=== PATIENT | male | born 1990 | race African-American/Black ===

== ENCOUNTER 2020-01-30 23:19 | Inpatient (IN) | payer OTHER ==
--- NOTE | 2020-01-30 23:35 | PDOC ---
History of Present Illness - General Chief Complaint: Pain Stated Complaint: ABD PAIN/NAUSEA - History of Present Illness Initial Comments: 01/31/20 00:05 29 year old man with a history of alcoholic liver disease, pancreatitis, withdrawal seizures and alcohol and marijuana abuse who presetns from [facility] with abdominal pain, nausea and alcohol withdrawal. The patient drinks 4 pints of leigh a day and last drank yesterday morning. He reports that he wants to get detox. He got diagnosed with pancreatitis 2 months ago and notes that the abdominal pain has been constant since then but worse today. He states the pain travels to the R lower side. He denies any surgeries on his abdomen. He admits to some nausea but no vomiting. ROS GENERAL/CONSTITUTIONAL: + fever or chills. No weakness. HEAD, EYES, EARS, NOSE AND THROAT: No change in vision. No ear pain or discharge. No sore throat. CARDIOVASCULAR: No chest pain or shortness of breath RESPIRATORY: No cough, wheezing, or hemoptysis. GASTROINTESTINAL: + nausea, No vomiting, diarrhea or constipation. GENITOURINARY: No dysuria, frequency, or change in urination. MUSCULOSKELETAL: No joint or muscle swelling or pain. No neck or back pain. SKIN: No rash NEUROLOGIC: No headache, vertigo, loss of consciousness, or change in strength/sensation. ENDOCRINE: No increased thirst. No abnormal weight change HEMATOLOGIC/LYMPHATIC: No anemia, easy bleeding, or history of blood clots. ALLERGIC/IMMUNOLOGIC: No hives or skin allergy. PE GENERAL: Awake, alert, and fully oriented, in no acute distress HEAD: No signs of trauma, normocephalic, atraumatic EYES: EOMI, sclera anicteric, conjunctiva clear ENT: oropharynx clear without exudates. Moist mucosa NECK: Normal ROM, supple LUNGS: No distress, speaks full sentences, clear to auscultation bilaterally HEART: Regular rate and rhythm, normal S1 and S2, no murmurs, rubs or gallops, peripheral pulses normal and equal bilaterally. ABDOMEN: Soft, + RLQ ttp, LUQ ttp, epigastric ttp, No guarding, no rebound. No masses EXTREMITIES : Normal inspection, Normal range of motion, no edema. No clubbing or cyanosis. NEUROLOGICAL: Cranial nerves II through XII grossly intact. Normal speech, no focal sensorimotor deficits, mild hand tremor, mild tongue tremor SKIN: Warm, Dry, normal turgor, no rashes or lesions noted Assessment and Plan 29 year old man with a history of alcoholic liver disease, pancreatitis and alcohol and marijuana abuse who presetns from [facility] with abdominal pain, nausea and alcohol withdrawal. Consider pancreatitis vs alcohol withdrawal vs appendicitis CIWA 3 librium banana bag tylenol low dose for fever - cbc, cmp, lipase, ekg, cxr, CT likely admit for detox and pancreatitis lipase elevated CT: acute pancreatitis EKG: nsr at 60bpm plan for admission Sherly Chan PGY2 Emergency Medicine 01/31/20 02:57 Past History - Medical History Allergies/Adverse Reactions: Allergies Allergy/AdvReac Type Severity Reaction Status Date / Time house dust mite Allergy Mild Itching Verified 01/30/20 23:23 tree and shrub pollen Allergy Mild Itching Verified 01/30/20 23:23 bee pollen Allergy Verified 01/30/20 23:23 pollen extracts Allergy Verified 01/30/20 23:23 Home Medications: Ambulatory Orders Unobtainable 01/30/20 Anemia: No Asthma: No Cancer: No Cardiac Disorders: No CVA: No COPD: No CHF: No Dementia: No Diabetes: No GI Disorders: Yes (Pancreatitis) Disorders: No HTN: Yes (Not on medication) Hypercholesterolemia: No Kidney Stones: No Liver Disease: No Seizures: Yes Thyroid Disease: No - Surgical History Abdominal Surgery: No Appendectomy: No Cardiac Surgery: No Cholecystectomy: No Lung Surgery: No Neurologic Surgery: No Orthopedic Surgery: No - Reproductive History Testicular Surgery: No - Psycho-Social/Smoking History Smoking History: Current every day smoker Have you smoked in the past 12 months: No Information on smoking cessation initiated: No - Substance Abuse Hx (Audit-C & DAST Scrn) How often the patient has a drink containing alcohol: 4 0r more times/wk Number of drinks the patient has on a typical day: 5 or 6 How often the patient has six or more drinks on one occasion: Daily or almost daily Score: In Men: 4 or > Positive; In Women: 3 or > Positive: 10 Screen Result (Pos requires Nsg. Audit-10AR): Positive In the last yr the pt used illegal drug/Rx for NonMed reason: Yes Score: Yes response is considered Positive: 1 Screen Result (Positive result requires Nsg. DAST-10): Positive *Physical Exam - Vital Signs Last Vital Signs Temp Pulse Resp BP Pulse Ox 100.1 F H 88 18 134/76 100 01/30/20 23:20 01/30/20 23:20 01/30/20 23:20 01/30/20 23:20 01/30/20 23:20 ED Treatment Course - LABORATORY CBC & Chemistry Diagram: 02/06/20 09:50 02/06/20 09:50 Discharge - Discharge Information Problems reviewed: Yes Clinical Impression/Diagnosis: Pancreatitis Qualifiers: Pancreatitis type: alcohol induced - Follow up/Referral - Patient Discharge Instructions - Post Discharge Activity
[2020-01-30] MEDS ORDERED: chlordiazePOXIDE HCL 25 MG CAPSULE PO ONE (23:40)
[2020-01-30] MEDS ORDERED: FOLIC ACID INJECTION - 1 MG, THIAMINE HCL 100 MG, MULTIVIT INJECTION ADULT 10 ML in SOD... IVPB ONE (23:43)
[2020-01-30] MEDS ORDERED: chlordiazePOXIDE HCL 25 MG CAPSULE ONE (23:51)
[2020-01-31] MEDS ORDERED: ACETAMINOPHEN 325 MG TABLET (FP) ONE
[2020-01-31] MEDS ORDERED: ACETAMINOPHEN 325 MG TABLET (FP) PO ONE (00:10)
[2020-01-31 00:12] LABS: BASO % 0.6 % (0-2.0); EOS % 0.7 % (0-4.5); HEMATOCRIT 30.7 % (35.4-49); HEMOGLOBIN 10.5 GM/dL (11.7-16.9); LYMPH % 39.6 % (8-40); MCH 30.9 pg (25.7-33.7); MCHC 34.3 g/dl (32.0-35.9); MEAN CELL VOLUME 90.3 fl (80-96); MEAN PLT VOLUME 7.8 fl (7.5-11.1); MONO % 8.1 % (3.8-10.2); PLATELET COUNT 248 K/MM3 (134-434); RDW 14.9 % (11.9-15.9); WHITE BLOOD COUNT 4.5 K/mm3 (4.0-10.0)
[2020-01-31] MEDS: ACETAMINOPHEN 1000 MG/100 ML VIAL (NON FORMULARY) IVPB ONE ×2 (00:18→03:43)
[2020-01-31 00:39] LABS: ALBUMIN 3.9 g/dl (3.4-5.0); ALK PHOS 120 U/L (45-117); ANION GAP 12 MMOL/L (8-16); BILIRUBIN,TOTAL 0.6 mg/dL (0.2-1); CALCIUM 9.2 mg/dL (8.5-10.1); CHLORIDE 94 mmol/L (98-107); CO2 29 mmol/L (21-32); GLUCOSE,RANDOM 99 mg/dL (74-106); LIPASE 1143 U/L (73-393); POTASSIUM 3.4 mmol/L (3.5-5.1); SGOT/AST 286 U/L (15-37); SGPT/ALT 80 U/L (13-61); SODIUM 135 mmol/L (136-145); TOT PROT 8.1 g/dl (6.4-8.2)
[2020-01-31 00:45] LABS: INR 1.07 (0.83-1.09); PROTHROMBIN TIME (PATIENT) 12.6 SEC (9.7-13.0)
[2020-01-31 00:48] LABS: ACTIVATED PTT 29.8 SECONDS (25.2-36.5)
--- NOTE | 2020-01-31 02:33 | PDOC ---
Attending Attestation - Resident Resident Name: Sherly Chan - ED Attending Attestation I have performed the following: I have examined & evaluated the patient, The case was reviewed & discussed with the resident, I agree w/resident's findings & plan, Exceptions are as noted - HPI HPI: 01/31/20 02:27 29 yo male h/o etoh abuse, prior pancreatitis here wtih c/o epigastric pain. nausea, no vomiting no diarrhea. went to [facility] for detox, sent to ED for evaluation of his abd pain. pain is severe, achy constant, no radiating. no mod factors. last drink was day prior . has been drinking heavily for 15 yrs, does have h/o withdrawal seizures from etoh in the past. - Physicial Exam PE: 01/31/20 02:30 awake alert lungs clear bilat heart rrr no mrg abd with epigastric ttp. no rebound no guarding. ext wwp. nuero alert oriented x 3. - Medical Decision Making 01/31/20 02:33 29 yo male with epigastric pain h/o pancreatitis etoh abuse here from detox at [facility]. differential cholecystitis, pancreatitis etoh gastritis, electrolyte abnoramlity. pt high risk for etoh withdrawwal.ttp on abd exam. plan ct a/p labs cbc cmp lipase ua. will given meds for etoh withdrawal. ct with signs of pancreatitis, near tail of pancreas. lipse 1100. will admit. given librium in ED. Heart Score/ECG Review #1 General ECG Interpretation: Sinus Rhythm, Normal Rate (60), Normal Intervals, No acute ischemic changes Discharge - Discharge Information Problems reviewed: Yes Clinical Impression/Diagnosis: Pancreatitis Qualifiers: Pancreatitis type: alcohol induced - Follow up/Referral - Patient Discharge Instructions - Post Discharge Activity
--- NOTE | 2020-01-31 03:01 | PN ---
Teaching Attending Note Name of Resident: Barbara Choudhary ATTENDING PHYSICIAN STATEMENT I saw and evaluated the patient. I reviewed the resident's note and discussed the case with the resident. I agree with the resident's findings and plan as documented. SUBJECTIVE: Patient is a 29 year old man with a PMH of Alcoholic liver disease, Pancreat itis, Tobacco use, Withdrawal seizures and Alcohol and Marijuana abuse who presents from [facility] with abdominal pain, nausea and alcohol withdrawal. The patient drinks 4 pints of leigh a day and last drank was yesterday morning. He reports that he wants to get detox. He got diagnosed with pancreatitis 2 months ago and notes that the abdominal pain has been constant since then but worse today. He states the pain travels to the right lower side. He denies any abdominal surgeries on his abdomen. Reports nausea but no vomiting. Denies dysuria, frequency, urgency, hematochezia or diarrhea. No sick contacts or recent travels. Family history is unremarkable. OBJECTIVE: Alert Vital Signs Period Temp Pulse Resp BP Sys/Moore Pulse Ox Last 24 Hr 100.1 F 88 18 134/76 100-100 HEENT: No Jaundice, eye redness or discharge, PERRLA, EOMI. Normocephalic, atraumatic. External ears are normal and hearing is grossly intact. No nasal discharge. Neck: Supple, nontender. No palpable adenopathy or thyromegaly. No JVD Chest: Good effort. Clear to auscultation and percussion. Heart: Regular. No S3, rub or murmur Abdomen: Not distended, soft, upper abdominal tenderness and guarding; no HSM. No rebound. Normal bowel sounds. Ext: Peripheral pulses intact. No leg edema. Skin: Warm and dry. No petechiae, rash or ecchymosis. Neuro: Alert. Oriented x3. No tremors or asterexis. CN 2-12 grossly intact. Sensation grossly intact in all four extremities and DTR are symmetric. Psych: Appropriate mood and affect. Good insight. Current Medications Generic Name Dose Route Start Last Admin Trade Name Freq PRN Reason Stop Dose Admin Folic Acid 1 mg/ Thiamine HCl 1,000 mls @ 125 mls/hr 01/30/20 23:43 01/31/20 00:18 100 mg/ Multivitamins/Minerals IVPB 01/31/20 07:42 125 mls/hr 10 ml/ Sodium Chloride ONCE ONE Administration Home Medications Medication Instructions Recorded Unobtainable 01/30/20 Abnormal Lab Results 01/30/20 01/30/20 23:50 23:50 RBC 3.40 L Hgb 10.5 L Hct 30.7 L Sodium 135 L Potassium 3.4 L Chloride 94 L AST 286 H ALT 80 H Alkaline Phosphatase 120 H Lipase 1143 H Current Medications Generic Name Dose Route Start Last Admin Trade Name Sulaiman PRN Reason Stop Dose Admin Enoxaparin Sodium 40 mg 01/31/20 10:00 Lovenox - SQ DAILY JUNITO Folic Acid 0.4 mg 01/31/20 10:00 Folic Acid Injection - SQ DAILY JUNITO Folic Acid 1 mg/ Thiamine HCl 1,000 mls @ 125 mls/hr 01/30/20 23:43 01/31/20 00:18 100 mg/ Multivitamins/Minerals IVPB 01/31/20 07:42 125 mls/hr 10 ml/ Sodium Chloride ONCE ONE Administration Lactated Ringer's 1,000 ml in 1,000 mls @ 200 mls/hr 01/31/20 04:15 Lactated Ringers Solution IV ASDIR JUNITO Morphine Sulfate 2 mg 01/31/20 04:00 Morphine Sulfate IVPUSH Q4H PRN PAIN LEVEL 6-10 Multivitamins/Minerals 10 ml 01/31/20 10:00 Infuvite Adult - IV DAILY JUNITO Thiamine HCl 200 mg 01/31/20 10:00 Vitamin B1 Injection - IVPB DAILY [facility] ASSESSMENT AND PLAN: 1. Acute pancreatitis - CT abdomen/pelvis shows evidence of pancreatitis in the tail. No acute abnormality on CXR. Got 1 liter of banana bag in the ER. Will keep him NPO and treat with IV ringers lactate at 200 ml/hour and use morphine for pain control. Viral testing for COVID-19 ordered and patient placed on airborne, droplet and contact isolation. Urinalysis pending. EKG shows NSR at 60/minute and QTc [address]-T wave changes. Hypokalemia likely partly due to alcohol induced urinary wasting. Will check serum magnesium, phosphate, triglycerides, hepatitis serology, trend LFTs, give IV and PO KCL. Patient is underweight - will consult physician assistant and provide nutritional supplements. Will continue comprehensive care for all of patients comorbid conditions. 2. Alcohol abuse - Implement [facility] alcohol withdrawal protocol and do neurochecks. Implement seizure, fall and aspiration precautions. Treat with thiamine and folic acid. Monitor and replete electrolytes (Ca,Mg,K,P). Counseled patient about abstaining from alcohol. Will consult client technologies specialist and refer to alcohol detox upon discharge. 3. Tobacco Use Counseled on risks associated with tobacco use. We will provide patient all the necessary assistance to facilitate smoking cessation and prescribe Nicotine patch. 4. Anemia - Likely multifactorial. Will do basic anemia work up including serial stool guaiacs, vitamin B12/folate levels, reticulocyte count and iron studies. 5. DVT prophylaxis - Lovenox 40 mg SQ q 24 hours. 6. Advance directives - Full code
[2020-01-31] MEDS ORDERED: FAMOTIDINE 20 MG TABLET ONE (03:28)
--- NOTE | 2020-01-31 04:00 | HP ---
CHIEF COMPLAINT: abdominal pain PCP: none HISTORY OF PRESENT ILLNESS: Pt is a 29 y/o male with HTN, depression, ETOH use disorder with hx of seizure (1 month ago), and pancreatitis (2 months ago) who was sent from [facility] (prior to admission) for evaluation of abdominal pain. Pt reports intermittent, sharp abdominal pain that begins in the LUQ and radiates into the LLQ then RLQ. Food makes symptoms worse. He also has associated nausea, loss of appetite, and chills. He has not taken any medication for the pain. Pt drinks 2 pints of liquor a day. His last drink was a day and a half ago. He began drinking at 17. He had a seizure about 1 month ago when trying to detox on his own at home. One month prior, he went to detox but started drinking again right after he left. Pt also endorses regular marijuana use. He denies tobacco or other drug use. CIWA 0 ER course was notable for: (1) IV fluids, vitamins, librium, Tylenol (2) CT- mild mesenteric infiltration adjacent to the tail of the pancreas suggestive of mild acute pancreatitis (3) lipase 1143, Hb 10.5, K 3.4, ALT 286/AST 80/Alk Phos 120 (4) EKG- HR 60, NSR, normal axis, normal intervals, no ST changes, QTc 416 PAST MEDICAL HISTORY: HTN, depression, ETOH use disorder with hx of seizure (2 months ago), and pancr eatitis PAST SURGICAL HISTORY: none Social History: Smoking: denies Alcohol: 2 pints/daily Drugs: marijuana lives at home with mother Allergies house dust mite Allergy (Mild, Verified 01/30/20 23:23) Itching tree and shrub pollen Allergy (Mild, Verified 01/30/20 23:23) Itching SOB bee pollen Allergy (Verified 01/30/20 23:23) pollen extracts Allergy (Verified 01/30/20 23:23) HOME MEDICATIONS: Home Medications Medication Instructions Recorded none 01/30/20 REVIEW OF SYSTEMS see HPI PHYSICAL EXAMINATION Vital Signs - 24 hr 01/30/20 01/31/20 01/31/20 23:20 00:20 03:21 Temperature 100.1 F H 98.7 F Pulse Rate 88 Pulse Rate [ 60 Left] Respiratory 18 18 Rate Blood Pressure 134/76 Blood Pressure 126/85 [Left Arm] O2 Sat by Pulse 100 100 100 Oximetry (%) GENERAL: Awake, alert, and fully oriented, in no acute distress. Thin. HEAD: Normal with no signs of trauma. EYES: Pupils equal, round and reactive to light, extraocular movements intact, sclera mildly icteric, conjunctiva clear. EARS, NOSE, THROAT: Ears normal, nares patent, moist mucous membranes. NECK: Normal range of motion. LUNGS: Clear to auscultation bilaterally. No wheezes, and no crackles. HEART: Regular rate and rhythm, normal S1 and S2 without murmur. ABDOMEN: Soft, diffusely tender to light palpation, not distended, normoactive bowel sounds, + guarding, no rebound, no masses. No hepatomegaly or splenomegaly appreciated. No ecchymosis. MUSCULOSKELETAL: Normal range of motion at all joints. No CVA tenderness. UPPER EXTREMITIES: Warm, well-perfused. No peripheral edema. LOWER EXTREMITIES: Warm, well-perfused. No peripheral edema. NEUROLOGICAL: Cranial nerves II-XII grossly intact. Normal speech. PSYCHIATRIC: Cooperative. Good eye contact. Appropriate mood and affect. SKIN: Warm, dry, normal turgor. Laboratory Results - last 24 hr 01/30/20 01/30/20 01/31/20 23:50 23:50 00:00 WBC 4.5 RBC 3.40 L Hgb 10.5 L Hct 30.7 L MCV 90.3 MCH 30.9 MCHC 34.3 RDW 14.9 Plt Count 248 MPV 7.8 Absolute Neuts (auto) 2.3 Neutrophils % 51.0 Lymphocytes % 39.6 Monocytes % 8.1 Eosinophils % 0.7 Basophils % 0.6 Nucleated RBC % 0 PT with INR 12.60 INR 1.07 PTT (Actin FS) 29.8 Sodium 135 L Potassium 3.4 L Chloride 94 L Carbon Dioxide 29 Anion Gap 12 BUN 11.0 Creatinine 1.0 Est GFR (CKD-EPI)AfAm 119.02 Est GFR (CKD-EPI)NonAf 102.69 Random Glucose 99 Calcium 9.2 Total Bilirubin 0.6 AST 286 H ALT 80 H Alkaline Phosphatase 120 H Total Protein 8.1 Albumin 3.9 Lipase 1143 H Alcohol, Quantitative < 3 ASSESSMENT/PLAN: Pt is a 29 y/o male with HTN, depression, ETOH use disorder with hx of seizure (1 month ago), and pancreatitis (2 months ago) who was sent from [facility] (prior to admission) for evaluation of abdominal pain. CT abdomen shows mesenteric infiltration at pancreatic tail suggestive of acute pancreatitis. #mild acute alcoholic pancreatitis #transaminitis #failure to thrive -abdominal pain, CT findings, borderline elevated lipase -LR 200mL/hr -IV thiamine -IV folate -IV MV -morphine 2mg Q4H for pain -NPO except for meds -hepatitis panel -trend liver enzymes -Mg level -triglyceride level -consider dietary consult given low BMI #alcohol use disorder #hypokalemia -CIWA currently 0, but last drink was a day and a half ago -?hypokalemia from malnutrition -at risk for arrhythmias -start Ativan 2mg Q6H scheduled to prevent withdrawal symptoms, adjust if needed -IV and PO potassium -seizure precautions -fall precautions -discussed returning to [facility] for rehab and pt is amenable #normocytic anemia -Hb 10.5 -could be 2/2 alcohol use bone marrow suppression vs GI bleed -iron studies -B12 -folate -serial FOBT DVT Ppx Lovenox FEN LR 200mL/hr monitor K, Mg NPO dispo tele monitor for seizures and arrhythmias FULL CODE Visit type - Emergency Visit Emergency Visit: Yes ED Registration Date: 01/31/20 Care time: The patient presented to the Emergency Department on the above date and was hospitalized for further evaluation of their emergent condition. - New Patient This patient is new to me today: Yes Date on this admission: 01/31/20 - Critical Care Critical Care patient: No ATTENDING PHYSICIAN STATEMENT I saw and evaluated the patient. I reviewed the resident's note and discussed the case with the resident. I agree with the resident's findings and plan as documented. SUBJECTIVE: OBJECTIVE: ASSESSMENT AND PLAN:
[2020-01-31] MEDS ORDERED: LACTATED RINGERS SOLUTION 1,000 ML/1,000 ML INFUS.BAG IV SCH (04:15)
[2020-01-31] MEDS ORDERED: POTASSIUM CHLORIDE TABS 20 MEQ TABLET.ER (FP) PO ONE (04:24)
[2020-01-31] MEDS: MORPHINE SULFATE 2 MG/ML VIAL IVPUSH PRN ×2 (04:26→09:43)
[2020-01-31] MEDS: LORazepam 2 MG/ML SDV VIAL IVPUSH SCH ×3 (05:11→18:24)
[2020-01-31] MEDS: KCL 10 MEQ IVPB 10 MEQ/100 ML INFUS.BAG IVPB SCH ×3 (05:11→09:32)
[2020-01-31 06:59] LABS: MAGNESIUM 1.1 mg/dL (1.8-2.4); TRIGLYCERIDES 588 mg/dL (0-150)
[2020-01-31 09:01] LABS: BASO % 0.4 % (0-2.0); EOS % 1.8 % (0-4.5); HEMATOCRIT 28.9 % (35.4-49); HEMOGLOBIN 10.1 GM/dL (11.7-16.9); LYMPH % 48.8 % (8-40); MCH 31.4 pg (25.7-33.7); MCHC 34.9 g/dl (32.0-35.9); MEAN CELL VOLUME 89.9 fl (80-96); MEAN PLT VOLUME 7.6 fl (7.5-11.1); MONO % 7.3 % (3.8-10.2); NEUT % 41.7 % (42.8-82.8); PLATELET COUNT 194 K/MM3 (134-434); RBC 3.22 M/mm3 (4.00-5.60); RDW 14.8 % (11.9-15.9); WHITE BLOOD COUNT 4.4 K/mm3 (4.0-10.0)
[2020-01-31 09:39] LABS: MAGNESIUM 1.2 mg/dL (1.8-2.4)
[2020-01-31] MEDS ORDERED: PT OWN MED DRAWER 7, Y5N ONE ×2 (09:39→18:08)
[2020-01-31] MEDS: ENOXAPARIN NA (PORCINE) 40 MG/0.4 ML DISP.SYRIN SQ SCH (09:45)
[2020-01-31] MEDS: THIAMINE HCL 200 MG/2 ML VIAL IVPB SCH (09:46)
[2020-01-31] MEDS: MULTIVIT INJ. ADULT COMBO WITH VIT K 1 COMBO 10 ML VIAL IV SCH (10:00)
[2020-01-31] MEDS ORDERED: FOLIC ACID 5 MG/1 ML SQ SCH (10:00)
[2020-01-31 10:03] LABS: MAGNESIUM 1.2 mg/dL (1.8-2.4)
[2020-01-31] MEDS: FOLIC ACID 5 MG/1 ML IVPB SCH (11:47)
[2020-01-31] MEDS ORDERED: MAGNESIUM SULF 50% (8.12 MEQ/2 ML-1 GM VIAL) IVPB ONE (16:22)
[2020-01-31] MEDS ORDERED: SODIUM CHLORIDE 1,000 ML IV SCH (16:30)
--- NOTE | 2020-01-31 17:50 | EKG ---
Test Reason : Blood Pressure : / mmHG Vent. Rate : 060 BPM Atrial Rate : 060 BPM P-R Int : 138 ms QRS Dur : 102 ms QT Int : 416 ms P-R-T Axes : 037 073 059 degrees QTc Int : 416 ms NORMAL SINUS RHYTHM WITH SINUS ARRHYTHMIA NORMAL ECG NO PREVIOUS ECGS AVAILABLE Confirmed by MD Vaughn, Shen ([id number]) on 01/31/2020 5:49:37 PM Referred By: Confirmed By:Shen Mendes MD
[2020-01-31] MEDS: NAPH,MB-DB/K PH,MBDB POWDER PACKET PO SCH (21:46)
[2020-02-01] MEDS: LORazepam 2 MG/ML SDV VIAL IVPUSH SCH ×3 (00:08→11:23)
[2020-02-01] MEDS: NAPH,MB-DB/K PH,MBDB POWDER PACKET PO SCH ×3 (06:18→21:54)
--- NOTE | 2020-02-01 07:49 | PN ---
Progress Note, Physician History of Present Illness: Pt is a 29 y/o male with HTN, depression, ETOH use disorder with hx of seizure (1 month ago), and pancreatitis (2 months ago) who was sent from [facility] (prior to admission) for evaluation of abdominal pain. CT abdomen shows mesenteric infiltration at pancreatic tail suggestive of acute pancreatitis. - Current Medication List Current Medications: Active Medications Enoxaparin Sodium (Lovenox -) 40 mg SQ DAILY [facility] Last Admin: 01/31/20 09:45 Dose: 40 mg Documented by: Folic Acid (Folic Acid Injection -) 1 mg IVPB DAILY [facility] Last Admin: 01/31/20 11:47 Dose: 1 mg Documented by: Sodium Chloride (Normal Saline -) 1,000 mls @ 100 mls/hr IV ASDIR [facility] Last Admin: 01/31/20 18:24 Dose: 100 mls/hr Documented by: Lorazepam (Ativan Injection -) 2 mg IVPUSH Q6H [facility] Last Admin: 02/01/20 06:18 Dose: 2 mg Documented by: Morphine Sulfate (Morphine Sulfate) 2 mg IVPUSH Q4H PRN PRN Reason: PAIN LEVEL 6-10 Last Admin: 01/31/20 09:43 Dose: 2 mg Documented by: Multivitamins/Minerals (Infuvite Adult -) 10 ml IV DAILY [facility] Last Admin: 01/31/20 10:00 Dose: Not Given Documented by: Potassium Phos/Sodium Phos (Phos-Nak Packet -) 1 packet PO TID [facility] Stop: 02/02/20 14:01 Last Admin: 02/01/20 06:18 Dose: 1 packet Documented by: Thiamine HCl (Vitamin B1 Injection -) 200 mg IVPB DAILY [facility] Last Admin: 01/31/20 09:46 Dose: 200 mg Documented by: - Objective Vital Signs: Vital Signs Temperature 98.8 F 02/01/20 06:00 Pulse Rate 68 02/01/20 06:00 Respiratory Rate 18 02/01/20 06:00 Blood Pressure 125/88 02/01/20 06:00 O2 Sat by Pulse Oximetry (%) 100 01/31/20 21:00 Constitutional: Yes: No Distress, Calm, Cachectic Eyes: Yes: WNL, Conjunctiva Clear HENT: Yes: WNL, Atraumatic, Normocephalic Neck: Yes: WNL, Supple, Trachea Midline Cardiovascular: Yes: WNL, Regular Rate and Rhythm Respiratory: Yes: WNL, Regular, CTA Bilaterally Gastrointestinal: Yes: Normal Bowel Sounds, Soft, Tenderness (diffuse tenderness) ...Rectal Exam: Yes: Deferred Genitourinary: Yes: WNL Breast(s): Yes: WNL Musculoskeletal: Yes: WNL Extremities: Yes: WNL Edema: No Peripheral Pulses WNL: Yes Peripheral Pulses: Left Radial: 2+, Right Radial: 2+, Left Doralis Pedis: 2+, Right Dorsalis Pedis: 2+, Left Femoral: 2+, Right Femoral: 2+ Integumentary: Yes: Body Piercing (multiple facial piercings), Tattoos (multiple to UE) Neurological: Yes: WNL, Alert, Oriented ...Motor Strength: WNL Psychiatric: Yes: WNL, Alert, Oriented Labs: CBC, BMP 01/31/20 08:39 01/30/20 23:50 INR, PTT INR 1.07 (0.83-1.09) 01/31/20 00:00 - ....Imaging Chest X-ray: Report Reviewed (no acute pathology) Cat Scan: Report Reviewed Ultrasound: Report Reviewed (no acute pathology) Problem List - Problems (1) Depression Assessment/Plan: hx of on no medications Code(s): F32.9 - MAJOR DEPRESSIVE DISORDER, SINGLE EPISODE, UNSPECIFIED (2) Prophylactic measure Assessment/Plan: FEN Fluids: IVF, NPO Electrolytes: monitor & replete as needed Nutrition: NPO DVT ambulatory Dispo Maintain as inpatient full code discharge planning back to [facility] Code(s): Z29.9 - ENCOUNTER FOR PROPHYLACTIC MEASURES, UNSPECIFIED (3) Transaminitis Assessment/Plan: LFTs elevated most likely secondary to ETOH use hepatatis panel pending avoid hepatotoxic agents GI following Code(s): R74.0 - NONSPEC ELEV OF LEVELS OF TRANSAMNS & LACTIC ACID DEHYDRGNSE (4) Alcohol dependence with withdrawal, unspecified Assessment/Plan: presented from [facility] [address] Dr Malik to follow ativan protocol initiated request to return back to [facility] when medically stable counseled on cessation Code(s): F10.239 - ALCOHOL DEPENDENCE WITH WITHDRAWAL, UNSPECIFIED Qualifiers: Complication of substance-induced condition: with unspecified complication Qualified Code(s): F10.239 - Alcohol dependence with withdrawal, unspecified (5) Alcohol related seizure Assessment/Plan: sz last year, on no meds no seizure activity noted fall precautions Code(s): R56.9 - UNSPECIFIED CONVULSIONS (6) Pancreatitis Assessment/Plan: hydrated over night c/w IVF lipase 1143 GI following can start clears and advance as tolerated Protonix IV BID Code(s): K85.90 - ACUTE PANCREATITIS WITHOUT NECROSIS OR INFECTION, UNSP Qualifiers: Pancreatitis type: alcohol induced (7) Severe malnutrition Assessment/Plan: as evidence by BMI 16.5 muscle amd temporal waisting long standing etoh use starting clear liquids today will start clinimax until eating PO diet, decrease IVf to 150cc when started request for RD to see Code(s): E43 - UNSPECIFIED SEVERE PROTEIN-CALORIE MALNUTRITION (8) Smoking Assessment/Plan: active smoker offered nicotine patch-declined counseled on cessation Code(s): F17.200 - NICOTINE DEPENDENCE, UNSPECIFIED, UNCOMPLICATED Visit type - Emergency Visit Emergency Visit: Yes ED Registration Date: 01/31/20 Care time: The patient presented to the Emergency Department on the above date and was hospitalized for further evaluation of their emergent condition. - New Patient This patient is new to me today: Yes Date on this admission: 02/01/20 - Critical Care Critical Care patient: No - Discharge Referral Referred to [facility] No CIWA Score - CIWA Score Nausea/Vomitin-Mild Nausea/No Vomiting Muscle Tremors: 1-None Visible, but Eure Anxiety: 1-Mildly Anxious Agitation: 0-Normal Activity Paroxysmal Sweats: No Perspiration Orientation: 0-Oriented Tacttile Disturbances: 1-Very Mild Itch/Numbness Auditory Disturbances: 0-None Visual Disturbances: 0-None Headache: 1-Very Mild CIWA-Ar Total Score: 5
[2020-02-01] MEDS ORDERED: SODIUM CHLORIDE 1,000 ML IV SCH (07:55)
--- NOTE | 2020-02-01 08:57 | CON.GI ---
Consult Consult Specialty:: coverage for Dr Wayne - History of Present Illness History of Present Illness: Patient is a 29 year old man with a PMH of Alcoholic liver disease, Pancreatitis, Tobacco use, Withdrawal seizures and Alcohol and Marijuana abuse who presents from [facility] with abdominal pain, nausea and alcohol withdrawal. He was noted to have an elevated lipase, normal pancreas by CT , GB sludge by Ultrasound - Alcohol/Substance Use Hx Alcohol Use: Yes - Smoking History Smoking history: Current every day smoker Have you smoked in the past 12 months: No Home Medications - Allergies Allergies/Adverse Reactions: Allergies Allergy/AdvReac Type Severity Reaction Status Date / Time house dust mite Allergy Mild Itching Verified 01/30/20 23:23 tree and shrub pollen Allergy Mild Itching Verified 01/30/20 23:23 bee pollen Allergy Verified 01/30/20 23:23 pollen extracts Allergy Verified 01/30/20 23:23 - Home Medications Home Medications: Ambulatory Orders Unobtainable 01/30/20 Physical Exam-GI Vital Signs: Vital Signs Temperature 98.8 F 02/01/20 06:00 Pulse Rate 68 02/01/20 06:00 Respiratory Rate 18 02/01/20 06:00 Blood Pressure 125/88 02/01/20 06:00 O2 Sat by Pulse Oximetry (%) 100 01/31/20 21:00 Labs: INR, PTT INR 1.07 (0.83-1.09) 01/31/20 00:00 CBCD WBC 4.4 K/mm3 (4.0-10.0) 01/31/20 08:39 RBC 3.22 M/mm3 (4.00-5.60) L 01/31/20 08:39 Hgb 10.1 GM/dL (11.7-16.9) L 01/31/20 08:39 Hct 28.9 % (35.4-49) L 01/31/20 08:39 MCV 89.9 fl (80-96) 01/31/20 08:39 MCHC 34.9 g/dl (32.0-35.9) 01/31/20 08:39 RDW 14.8 % (11.9-15.9) 01/31/20 08:39 Plt Count 194 K/MM3 (134-434) D 01/31/20 08:39 MPV 7.6 fl (7.5-11.1) 01/31/20 08:39 CMP Sodium 135 mmol/L (136-145) L 01/30/20 23:50 Potassium 3.4 mmol/L (3.5-5.1) L 01/30/20 23:50 Chloride 94 mmol/L (98-107) L 01/30/20 23:50 Carbon Dioxide 29 mmol/L (21-32) 01/30/20 23:50 Anion Gap 12 MMOL/L (8-16) 01/30/20 23:50 BUN 11.0 mg/dL (7-18) 01/30/20 23:50 Creatinine 1.0 mg/dL (0.55-1.3) 01/30/20 23:50 Calcium 9.2 mg/dL (8.5-10.1) 01/30/20 23:50 Total Bilirubin 0.6 mg/dL (0.2-1) 01/30/20 23:50 AST 286 U/L (15-37) H 01/30/20 23:50 ALT 80 U/L (13-61) H 01/30/20 23:50 Alkaline Phosphatase 120 U/L (45-117) H 01/30/20 23:50 Total Protein 8.1 g/dl (6.4-8.2) 01/30/20 23:50 Albumin 3.9 g/dl (3.4-5.0) 01/30/20 23:50 Problem List - Problems (1) Alcoholic pancreatitis Assessment/Plan: R> IV hydration IV pantoprazole q 12hours may have clear liquids Detox protocol Code(s): K85.20 - ALCOHOL INDUCED ACUTE PANCREATITIS WITHOUT NECROSIS OR INFCT
[2020-02-01 08:59] LABS: BASO % 0.5 % (0-2.0); EOS % 4.7 % (0-4.5); HEMATOCRIT 28.8 % (35.4-49); HEMOGLOBIN 9.8 GM/dL (11.7-16.9); MCH 30.9 pg (25.7-33.7); MCHC 33.9 g/dl (32.0-35.9); MEAN PLT VOLUME 7.8 fl (7.5-11.1); MONO % 9.1 % (3.8-10.2); NEUT % 52.7 % (42.8-82.8); PLATELET COUNT 150 K/MM3 (134-434); RBC 3.16 M/mm3 (4.00-5.60); RDW 15.1 % (11.9-15.9); WHITE BLOOD COUNT 3.8 K/mm3 (4.0-10.0)
[2020-02-01 09:14] LABS: BLOOD UREA NITROGEN 4.3 mg/dL (7-18); CALCIUM 8.8 mg/dL (8.5-10.1); CREATININE 0.8 mg/dL (0.55-1.3)
[2020-02-01] MEDS ORDERED: PT OWN MED DRAWER 7, Y5N ONE ×2 (09:16→11:05)
[2020-02-01 09:20] LABS: MAGNESIUM 1.8 mg/dL (1.8-2.4); PHOSPHOROUS 2.6 mg/dL (2.5-4.9)
[2020-02-01] MEDS: PANTOPRAZOLE SODIUM 40 MG VIAL IVPUSH SCH ×2 (09:30→21:57)
[2020-02-01] MEDS: ENOXAPARIN NA (PORCINE) 40 MG/0.4 ML DISP.SYRIN SQ SCH (09:30)
[2020-02-01] MEDS: THIAMINE HCL 200 MG/2 ML VIAL IVPB SCH (09:30)
[2020-02-01] MEDS ORDERED: PANTOPRAZOLE SODIUM 40 MG in SODIUM CHLORIDE 100 ML IVPB SCH (10:00)
[2020-02-01] MEDS: FOLIC ACID 5 MG/1 ML IVPB SCH (11:26)
[2020-02-01] MEDS ORDERED: LORazepam 1 MG TABLET PO PRN (13:49)
[2020-02-01 14:19] VITALS: BMI 16.5
[2020-02-01] MEDS: LORazepam 1 MG TABLET PO SCH ×3 (14:33→22:41)
[2020-02-01] MEDS: MULTIVIT INJ. ADULT COMBO WITH VIT K 1 COMBO 10 ML VIAL IV SCH (15:09)
[2020-02-01] MEDS: AMINO ACIDS 4.25%/D5W 1,000 ML IV SCH (15:23)
[2020-02-01] MEDS: SODIUM CHLORIDE 1,000 ML IV SCH (15:24)
[2020-02-02] MEDS: LORazepam 1 MG TABLET PO SCH ×4 (05:03→22:24)
[2020-02-02] MEDS: NAPH,MB-DB/K PH,MBDB POWDER PACKET PO SCH ×2 (05:05→14:14)
[2020-02-02 06:53] LABS: BASO % 0.7 % (0-2.0); EOS % 4.6 % (0-4.5); HEMATOCRIT 28.7 % (35.4-49); HEMOGLOBIN 9.9 GM/dL (11.7-16.9); MCH 31.3 pg (25.7-33.7); MCHC 34.5 g/dl (32.0-35.9); MEAN CELL VOLUME 90.5 fl (80-96); MEAN PLT VOLUME 8.1 fl (7.5-11.1); MONO % 10.8 % (3.8-10.2); NEUT % 47.9 % (42.8-82.8); PLATELET COUNT 113 K/MM3 (134-434); RBC 3.17 M/mm3 (4.00-5.60); RDW 15.1 % (11.9-15.9); WHITE BLOOD COUNT 4.3 K/mm3 (4.0-10.0)
[2020-02-02 07:19] LABS: ALBUMIN 3.4 g/dl (3.4-5.0); BLOOD UREA NITROGEN 3.1 mg/dL (7-18); CALCIUM 8.6 mg/dL (8.5-10.1); CREATININE 0.9 mg/dL (0.55-1.3); MAGNESIUM 1.4 mg/dL (1.8-2.4); POTASSIUM 3.5 mmol/L (3.5-5.1); TOT PROT 7.1 g/dl (6.4-8.2)
[2020-02-02] MEDS ORDERED: PT OWN MED DRAWER 7, Y5N ONE (09:09)
[2020-02-02] MEDS ORDERED: MAGNESIUM OXIDE 400 MG TABLET (FP) PO ONE (09:30)
[2020-02-02] MEDS: PANTOPRAZOLE SODIUM 40 MG VIAL IVPUSH SCH ×2 (10:13→22:23)
[2020-02-02] MEDS: ENOXAPARIN NA (PORCINE) 40 MG/0.4 ML DISP.SYRIN SQ SCH (10:13)
[2020-02-02] MEDS: THIAMINE HCL 200 MG/2 ML VIAL IVPB SCH (10:14)
[2020-02-02] MEDS: FOLIC ACID 5 MG/1 ML IVPB SCH (10:15)
--- NOTE | 2020-02-02 11:02 | PN.GI ---
GI Progress Note Subjective: Abdominal pain improved No acute events - Objective Vital Signs: Vital Signs Temperature 97.8 F 02/02/20 05:54 Pulse Rate 52 L 02/02/20 05:54 Respiratory Rate 18 02/02/20 05:54 Blood Pressure 133/96 02/02/20 05:54 O2 Sat by Pulse Oximetry (%) 100 02/01/20 21:00 Constitutional: Calm Eyes: No: Sclera Icterus Cardiovascular: Yes: Regular Rate and Rhythm Respiratory: Yes: CTA Bilaterally Gastrointestinal Inspection: No: Distention ...Auscultate: Yes: Normoactive Bowel Sounds ...Palpate: Yes: Soft. No: Hepatomegaly, Splenomegaly, Tenderness Edema: No (No LE edema) Neurological: Yes: Alert Labs: CBC, BMP 02/02/20 05:35 02/02/20 05:35 INR, PTT INR 1.07 (0.83-1.09) 01/31/20 00:00 Hepatic Panel Total Bilirubin 1.0 mg/dL (0.2-1) 02/02/20 05:35 AST 128 U/L (15-37) H 02/02/20 05:35 ALT 69 U/L (13-61) H 02/02/20 05:35 Alkaline Phosphatase 101 U/L (45-117) 02/02/20 05:35 Albumin 3.4 g/dl (3.4-5.0) 02/02/20 05:35 Problem List - Problems (1) Alcoholic pancreatitis Assessment/Plan: Clinically improved. advanced diet Discussed need for complete alcohol cessation Monitor LFTs Avoid hepatotoxic agents Code(s): K85.20 - ALCOHOL INDUCED ACUTE PANCREATITIS WITHOUT NECROSIS OR INFCT Qualifiers: Chronicity: acute Acute pancreatitis complication: no infection or necrosis Qualified Code(s): K85.20 - Alcohol induced acute pancreatitis without necrosis or infection
--- NOTE | 2020-02-02 12:54 | PN ---
Physical Exam: SUBJECTIVE: Patient seen and examined at the bedside. in no acute distress, denies abdominal pain. OBJECTIVE: Patient is a 29 year old male with a past medical history of hypertension, depression, ETOH abuse with hx of seizure (1 month ago), and pancreatitis (2 months ago) who was sent from [facility] (prior to admission) for evaluation of abdominal pain. CT abdomen shows mesenteric infiltration at pancreatic tail suggestive of acute pancreatitis. Vital Signs Period Temp Pulse Resp BP Sys/Moore Pulse Ox Last 24 Hr 97.8 F-98.7 F 52-94 18-20 122-143/79-96 100 GENERAL: The patient is awake, alert, and fully oriented, in no acute distress. HEAD: Normal with no signs of trauma. EYES: PERRL, extraocular movements intact, sclera anicteric, conjunctiva clear. No ptosis. ENT: Ears normal, nares patent, oropharynx clear without exudates NECK: Trachea midline, full range of motion, supple. LUNGS: Breath sounds equal, clear to auscultation bilaterally HEART: Regular rate and rhythm ABDOMEN: Soft, nontender, nondistended, normoactive bowel sounds EXTREMITIES: no edema. NEUROLOGICAL: Normal speech, gait not observed. Laboratory Results - last 24 hr 02/01/20 02/02/20 02/02/20 07:05 05:35 05:35 WBC 4.3 RBC 3.17 L Hgb 9.9 L Hct 28.7 L MCV 90.5 MCH 31.3 MCHC 34.5 RDW 15.1 Plt Count 113 L D MPV 8.1 Absolute Neuts (auto) 2.0 Neutrophils % 47.9 Lymphocytes % 36.0 Monocytes % 10.8 H Eosinophils % 4.6 H Basophils % 0.7 Nucleated RBC % 0 Sodium 139 138 Potassium 4.0 3.5 Chloride 102 103 Carbon Dioxide 24 25 Anion Gap 13 10 BUN 4.3 L 3.1 L Creatinine 0.8 0.9 Est GFR (CKD-EPI)AfAm 141.89 135.19 Est GFR (CKD-EPI)NonAf 122.43 116.64 Random Glucose 68 L 127 H Calcium 8.8 8.6 Magnesium 1.4 L Total Bilirubin 1.0 AST 128 H ALT 69 H Alkaline Phosphatase 101 Total Protein 7.1 Albumin 3.4 Total Amylase 90 Lipase 1049 H 1116 H Active Medications Generic Name Dose Route Start Last Admin Trade Name Freq PRN Reason Stop Dose Admin Enoxaparin Sodium 40 mg 01/31/20 10:00 02/02/20 10:13 Lovenox - SQ 40 mg DAILY JUNITO Administration Folic Acid 1 mg 01/31/20 10:00 02/02/20 10:15 Folic Acid Injection - IVPB 1 mg DAILY JUNITO Administration Amino Acids 1,000 mls @ 42 mls/hr 02/01/20 14:30 02/01/20 15:23 Clinimix - IV 42 mls/hr Q24H JUNITO Administration Sodium Chloride 1,000 mls @ 150 mls/hr 02/01/20 14:23 02/01/20 15:24 Normal Saline - IV 150 mls/hr ASDIR JUNITO Administration Lorazepam 1 mg 02/03/20 05:00 Ativan - PO 02/03/20 23:01 0500,1100,1700,2300 JUNITO Lorazepam 1 mg 02/01/20 13:49 Ativan - PO 02/03/20 23:59 Q4H PRN Symptoms of Withdrawal Lorazepam 2 mg 02/01/20 11:00 02/02/20 12:35 Ativan - PO 02/02/20 23:01 2 mg 0500,1100,1700,2300 JUNITO Administration Lorazepam 0.5 mg 02/04/20 05:00 Ativan - PO 02/04/20 23:01 Q6H JUNITO Lorazepam 0.5 mg 02/04/20 00:00 Ativan - PO 02/05/20 00:00 Q4H PRN Symptoms of Withdrawal Lorazepam 0.5 mg 02/05/20 05:00 Ativan - PO 02/05/20 05:01 ONCE ONE Morphine Sulfate 2 mg 01/31/20 04:00 01/31/20 09:43 Morphine Sulfate IVPUSH 2 mg Q4H PRN Administration PAIN LEVEL 6-10 Multivitamins/Minerals 10 ml 01/31/20 10:00 02/01/20 15:09 Infuvite Adult - IV 10 ml DAILY JUNITO Administration Pantoprazole Sodium 40 mg 02/01/20 10:00 02/02/20 10:13 Protonix Iv IVPUSH 40 mg BID JUNITO Administration Potassium Phos/Sodium Phos 1 packet 01/31/20 22:00 02/02/20 05:05 Phos-Nak Packet - PO 02/02/20 14:01 1 packet TID JUNITO Administration Thiamine HCl 200 mg 01/31/20 10:00 02/02/20 10:14 Vitamin B1 Injection - IVPB 200 mg DAILY JUNITO Administration ASSESSMENT/PLAN: Problem List - Problems (1) Alcoholic pancreatitis Assessment/Plan: lipase remains elevated. GI following on low salt fat diet Protonix IV BID Code(s): K85.20 - ALCOHOL INDUCED ACUTE PANCREATITIS WITHOUT NECROSIS OR INFCT Qualifiers: Chronicity: acute Acute pancreatitis complication: no infection or necrosis Qualified Code(s): K85.20 - Alcohol induced acute pancreatitis without necrosis or infection (2) Depression Assessment/Plan: hx of on no medications Code(s): F32.9 - MAJOR DEPRESSIVE DISORDER, SINGLE EPISODE, UNSPECIFIED (3) Severe malnutrition Assessment/Plan: as evidence by BMI 16.5 muscle and temporal wasting long standing etoh use tolerating low salt diet RD following Code(s): E43 - UNSPECIFIED SEVERE PROTEIN-CALORIE MALNUTRITION (4) Transaminitis Assessment/Plan: improving monitor daily Code(s): R74.0 - NONSPEC ELEV OF LEVELS OF TRANSAMNS & LACTIC ACID DEHYDRGNSE (5) Hypertension Assessment/Plan: bp stable Code(s): I10 - ESSENTIAL (PRIMARY) HYPERTENSION Qualifiers: Hypertension type: unspecified Qualified Code(s): I10 - Essential (primary) hypertension (6) Anemia Assessment/Plan: iron profile ordered no overt signs of bleeding Code(s): D64.9 - ANEMIA, UNSPECIFIED (7) Prophylactic measure Assessment/Plan: lovenox 40mg daily Code(s): Z29.9 - ENCOUNTER FOR PROPHYLACTIC MEASURES, UNSPECIFIED Visit type - Emergency Visit Emergency Visit: Yes ED Registration Date: 01/31/20 Care time: The patient presented to the Emergency Department on the above date and was hospitalized for further evaluation of their emergent condition. - New Patient This patient is new to me today: Yes Date on this admission: 02/02/20 - Critical Care Critical Care patient: No - Discharge Referral Referred to [facility] Med P.C.: No
[2020-02-02] MEDS: SODIUM CHLORIDE 1,000 ML IV SCH (14:14)
[2020-02-02] MEDS ORDERED: SODIUM CHLORIDE 1,000 ML IV SCH (15:56)
[2020-02-02] MEDS: MULTIVIT INJ. ADULT COMBO WITH VIT K 1 COMBO 10 ML VIAL IV SCH (17:08)
[2020-02-02] MEDS: AMINO ACIDS 4.25%/D5W 1,000 ML IV SCH (17:09)
[2020-02-03] MEDS: LORazepam 1 MG TABLET PO SCH ×4 (05:48→22:13)
[2020-02-03 07:15] LABS: BASO % 0.6 % (0-2.0); EOS % 4.8 % (0-4.5); HEMATOCRIT 30.3 % (35.4-49); HEMOGLOBIN 10.3 GM/dL (11.7-16.9); MCH 31.1 pg (25.7-33.7); MEAN CELL VOLUME 91.5 fl (80-96); NEUT % 49.6 % (42.8-82.8); PLATELET COUNT 106 K/MM3 (134-434); RBC 3.31 M/mm3 (4.00-5.60); RDW 14.8 % (11.9-15.9); WHITE BLOOD COUNT 4.1 K/mm3 (4.0-10.0)
[2020-02-03 07:41] LABS: ALBUMIN 3.8 g/dl (3.4-5.0); BILIRUBIN,TOTAL 0.8 mg/dL (0.2-1); BLOOD UREA NITROGEN 5.7 mg/dL (7-18); CALCIUM 9.2 mg/dL (8.5-10.1); MAGNESIUM 1.3 mg/dL (1.8-2.4); POTASSIUM 3.6 mmol/L (3.5-5.1)
[2020-02-03] MEDS ORDERED: MAGNESIUM OXIDE 400 MG TABLET (FP) PO ONE (08:09)
[2020-02-03] MEDS ORDERED: PT OWN MED DRAWER 7, Y5N ONE (09:07)
[2020-02-03] MEDS: PANTOPRAZOLE SODIUM 40 MG VIAL IVPUSH SCH ×2 (09:32→22:10)
[2020-02-03] MEDS: MULTIVITAMINS (DAILY MVI) TABLET (FP) PO SCH (09:32)
[2020-02-03] MEDS: ENOXAPARIN NA (PORCINE) 40 MG/0.4 ML DISP.SYRIN SQ SCH (09:32)
[2020-02-03] MEDS: FOLIC ACID 1 MG TABLET (FP) PO SCH (09:32)
[2020-02-03] MEDS: THIAMINE HCL 100 MG TABLET (FP) PO SCH (09:33)
--- NOTE | 2020-02-03 14:08 | PN ---
Physical Exam: SUBJECTIVE: Patient seen and examined at the bedside. denies any abdominal pain, tolerating meals. had a bm today. OBJECTIVE: Patient is a 29 year old male with a past medical history of hypertension, depression, ETOH abuse with hx of seizure (1 month ago), and pancreatitis (2 months ago) who was sent from [facility] (prior to admission) for evaluation of abdominal pain. CT abdomen shows mesenteric infiltration at pancreatic tail suggestive of acute pancreatitis. covid status: serology negative as of 01/30/2020 Vital Signs Period Temp Pulse Resp BP Sys/Moore Pulse Ox Last 24 Hr 97.5 F-98.4 F 56-68 16-20 118-148/69-88 100-100 GENERAL: The patient is awake, alert, and fully oriented, in no acute distress. HEAD: Normal with no signs of trauma. EYES: PERRL, extraocular movements intact, sclera anicteric, conjunctiva clear. No ptosis. ENT: Ears normal, nares patent, oropharynx clear without exudates NECK: Trachea midline, full range of motion, supple. LUNGS: Breath sounds equal, clear to auscultation bilaterally HEART: Regular rate and rhythm ABDOMEN: Soft, nontender, nondistended, normoactive bowel sounds EXTREMITIES: no edema. NEUROLOGICAL: Normal speech, gait not observed. Laboratory Results - last 24 hr 01/30/20 01/31/20 02/02/20 23:50 08:39 05:35 WBC RBC Hgb Hct MCV MCH MCHC RDW Plt Count MPV Absolute Neuts (auto) Neutrophils % Lymphocytes % Monocytes % Eosinophils % Basophils % Nucleated RBC % Sodium 138 Potassium 3.5 Chloride 103 Carbon Dioxide 25 Anion Gap 10 BUN 3.1 L Creatinine 0.9 Est GFR (CKD-EPI)AfAm 135.19 Est GFR (CKD-EPI)NonAf 116.64 Random Glucose 127 H Calcium 8.6 Magnesium 1.4 L Iron 101 TIBC 221 L Iron Saturation 45 H Unsaturated IBC 120 L Total Bilirubin 1.0 AST 128 H ALT 69 H Alkaline Phosphatase 101 Total Protein 7.1 Albumin 3.4 Lipase 1116 H COVID-19 ([facility]IR[facility]) Not detected HCV Quantitation Hcv not detected HCV RNA log copies/mL TNP 02/03/20 02/03/20 05:45 05:45 WBC 4.1 RBC 3.31 L Hgb 10.3 L Hct 30.3 L MCV 91.5 MCH 31.1 MCHC 34.0 RDW 14.8 Plt Count 106 L MPV 9.0 D Absolute Neuts (auto) 2.1 Neutrophils % 49.6 Lymphocytes % 35.0 Monocytes % 10.0 Eosinophils % 4.8 H Basophils % 0.6 Nucleated RBC % 0 Sodium 137 Potassium 3.6 Chloride 102 Carbon Dioxide 27 Anion Gap 8 BUN 5.7 L Creatinine 1.0 Est GFR (CKD-EPI)AfAm 119.02 Est GFR (CKD-EPI)NonAf 102.69 Random Glucose 98 Calcium 9.2 Magnesium 1.3 L Iron TIBC Iron Saturation Unsaturated IBC Total Bilirubin 0.8 AST 125 H ALT 81 H Alkaline Phosphatase 103 Total Protein 8.0 Albumin 3.8 Lipase COVID-19 ([facility]) HCV Quantitation HCV RNA log copies/mL Active Medications Generic Name Dose Route Start Last Admin Trade Name Freq PRN Reason Stop Dose Admin Enoxaparin Sodium 40 mg 01/31/20 10:00 02/03/20 09:32 Lovenox - SQ 40 mg DAILY JUNITO Administration Folic Acid 1 mg 02/03/20 10:00 02/03/20 09:32 Folic Acid - PO 1 mg DAILY JUNITO Administration Lorazepam 1 mg 02/03/20 05:00 02/03/20 11:21 Ativan - PO 02/03/20 23:01 1 mg 0500,1100,1700,2300 JUNITO Administration Lorazepam 1 mg 02/01/20 13:49 Ativan - PO 02/03/20 23:59 Q4H PRN Symptoms of Withdrawal Lorazepam 0.5 mg 02/04/20 05:00 Ativan - PO 02/04/20 23:01 Q6H JUNITO Lorazepam 0.5 mg 02/04/20 00:00 Ativan - PO 02/05/20 00:00 Q4H PRN Symptoms of Withdrawal Lorazepam 0.5 mg 02/05/20 05:00 Ativan - PO 02/05/20 05:01 ONCE ONE Morphine Sulfate 2 mg 01/31/20 04:00 01/31/20 09:43 Morphine Sulfate IVPUSH 2 mg Q4H PRN Administration PAIN LEVEL 6-10 Multivitamins/Minerals/Vitamin C 1 tab 02/03/20 10:00 02/03/20 09:32 Tab-A-Vit - PO 1 tab DAILY JUNITO Administration Pantoprazole Sodium 40 mg 02/01/20 10:00 02/03/20 09:32 Protonix Iv IVPUSH 40 mg BID JUNITO Administration Thiamine HCl 100 mg 02/03/20 10:00 02/03/20 09:33 Vitamin B1 - PO 100 mg DAILY JUNITO Administration ASSESSMENT/PLAN: Problem List - Problems (1) Alcoholic pancreatitis Assessment/Plan: lipase remains elevated. tolerating diet, no abdominal pain or discomfort. GI following, notes reviewed and appreciated. on low salt fat diet Protonix Code(s): K85.20 - ALCOHOL INDUCED ACUTE PANCREATITIS WITHOUT NECROSIS OR INFCT Qualifiers: Chronicity: acute Acute pancreatitis complication: no infection or necrosis Qualified Code(s): K85.20 - Alcohol induced acute pancreatitis without necrosis or infection (2) Depression Assessment/Plan: on no home medications. Code(s): F32.9 - MAJOR DEPRESSIVE DISORDER, SINGLE EPISODE, UNSPECIFIED (3) Severe malnutrition Assessment/Plan: as evidence by BMI 16.5 muscle and temporal wasting, appetite improving long standing etoh use since age of 17 tolerating low salt diet RD following Code(s): E43 - UNSPECIFIED SEVERE PROTEIN-CALORIE MALNUTRITION (4) Transaminitis Assessment/Plan: improving monitor daily Code(s): R74.0 - NONSPEC ELEV OF LEVELS OF TRANSAMNS & LACTIC ACID DEHYDRGNSE (5) Hypertension Assessment/Plan: bp stable Code(s): I10 - ESSENTIAL (PRIMARY) HYPERTENSION Qualifiers: Hypertension type: unspecified Qualified Code(s): I10 - Essential (primary) hypertension (6) Anemia Assessment/Plan: iron profile ordered no overt signs of bleeding anemial likely from long standing etoh use. Code(s): D64.9 - ANEMIA, UNSPECIFIED (7) Prophylactic measure Assessment/Plan: lovenox 40mg daily Code(s): Z29.9 - ENCOUNTER FOR PROPHYLACTIC MEASURES, UNSPECIFIED Visit type - Emergency Visit Emergency Visit: Yes ED Registration Date: 01/31/20 Care time: The patient presented to the Emergency Department on the above date and was hospitalized for further evaluation of their emergent condition. - New Patient This patient is new to me today: No - Critical Care Critical Care patient: No - Discharge Referral Referred to [facility] Med P.C.: No
[2020-02-03 20:12] LABS: HEP B CORE AB, TOT Negative (Negative)
[2020-02-04] MEDS ORDERED: LORazepam 0.5 MG TABLET PO PRN
[2020-02-04] MEDS: LORazepam 0.5 MG TABLET PO SCH ×4 (06:05→22:18)
[2020-02-04 07:41] LABS: BASO % 0.4 % (0-2.0); EOS % 4.1 % (0-4.5); HEMATOCRIT 28.3 % (35.4-49); HEMOGLOBIN 9.7 GM/dL (11.7-16.9); LYMPH % 40.9 % (8-40); MCH 31.8 pg (25.7-33.7); MCHC 34.2 g/dl (32.0-35.9); MEAN CELL VOLUME 92.9 fl (80-96); MEAN PLT VOLUME 9.3 fl (7.5-11.1); NEUT % 41.6 % (42.8-82.8); PLATELET COUNT 101 K/MM3 (134-434); RBC 3.04 M/mm3 (4.00-5.60); RDW 15.8 % (11.9-15.9)
[2020-02-04 07:46] LABS: ALBUMIN 3.6 g/dl (3.4-5.0); BILIRUBIN,TOTAL 0.7 mg/dL (0.2-1); BLOOD UREA NITROGEN 8.1 mg/dL (7-18); CALCIUM 9.6 mg/dL (8.5-10.1); MAGNESIUM 1.5 mg/dL (1.8-2.4); POTASSIUM 3.6 mmol/L (3.5-5.1); TOT PROT 7.6 g/dl (6.4-8.2)
[2020-02-04] MEDS ORDERED: MAGNESIUM OXIDE 400 MG TABLET (FP) PO ONE (08:15)
[2020-02-04] MEDS: ENOXAPARIN NA (PORCINE) 40 MG/0.4 ML DISP.SYRIN SQ SCH (09:07)
[2020-02-04] MEDS: MULTIVITAMINS (DAILY MVI) TABLET (FP) PO SCH (09:07)
[2020-02-04] MEDS: FOLIC ACID 1 MG TABLET (FP) PO SCH (09:07)
[2020-02-04] MEDS: PANTOPRAZOLE SODIUM 40 MG VIAL IVPUSH SCH ×2 (09:07→22:13)
[2020-02-04] MEDS: THIAMINE HCL 100 MG TABLET (FP) PO SCH (09:08)
--- NOTE | 2020-02-04 13:58 | PN.GI ---
GI Progress Note Subjective: NO NEW COMPLAINTS STATES HE IS FEELING MUCH BETTER TOLERATED FULL BREAKFAST AND LUNCH WITHOUT ABDOMINAL PAIN - Objective Vital Signs: Vital Signs Temperature 98.1 F 02/04/20 08:40 Pulse Rate 63 02/04/20 08:40 Respiratory Rate 18 02/04/20 09:00 Blood Pressure 139/83 02/04/20 08:40 O2 Sat by Pulse Oximetry (%) 100 02/04/20 09:00 Constitutional: Well Nourished, No Distress, Moderate Distress Eyes: Yes: WNL HENT: Yes: WNL Cardiovascular: Yes: WNL, Regular Rate and Rhythm Respiratory: Yes: WNL, Regular, CTA Bilaterally Musculoskeletal: Yes: WNL Extremities: Yes: WNL Edema: No Labs: CBC, BMP 02/04/20 05:45 02/04/20 06:00 INR, PTT INR 1.07 (0.83-1.09) 01/31/20 00:00 Problem List - Problems (1) Alcoholic pancreatitis Assessment/Plan: CONTINUE FAT CONTROLLED DIET CT SCAN WITH PANCREATIC PROTOCOL IN 4 WEEKS ETOH ABSTINENCE COUNSELING RECOMMENDED DC PLANNING PER PRIMARY MEDICAL TEAM Code(s): K85.20 - ALCOHOL INDUCED ACUTE PANCREATITIS WITHOUT NECROSIS OR INFCT Qualifiers: Chronicity: acute Acute pancreatitis complication: no infection or necrosis Qualified Code(s): K85.20 - Alcohol induced acute pancreatitis without n ecrosis or infection (2) Alcohol dependence with withdrawal, unspecified Code(s): F10.239 - ALCOHOL DEPENDENCE WITH WITHDRAWAL, UNSPECIFIED Qualifiers: Complication of substance-induced condition: with unspecified complication Qualified Code(s): F10.239 - Alcohol dependence with withdrawal, unspecified
--- NOTE | 2020-02-04 15:31 | PN ---
Physical Exam: SUBJECTIVE: Patient seen and examined. denies pain. tolerating meals. OBJECTIVE: LFTs worse today ----- Patient is a 29 year old male with a past medical history of hypertension, depression, ETOH abuse with hx of seizure (1 month ago), and pancreatitis (2 months ago) who was sent from [facility] (prior to admission) for evaluation of abdominal pain. CT abdomen shows mesenteric infiltration at pancreatic tail suggestive of acute pancreatitis. covid status: serology negative as of 01/30/2020 Vital Signs Period Temp Pulse Resp BP Sys/Moore Pulse Ox Last 24 Hr 97.3 F-98.2 F 56-67 16-18 124-142/71-87 100-100 GENERAL: The patient is awake, alert, and fully oriented, in no acute distress. HEAD: Normal with no signs of trauma. EYES: PERRL, extraocular movements intact, sclera anicteric, conjunctiva clear. No ptosis. ENT: Ears normal, nares patent, oropharynx clear without exudates NECK: Trachea midline, full range of motion, supple. LUNGS: Breath sounds equal, clear to auscultation bilaterally HEART: Regular rate and rhythm ABDOMEN: Soft, nontender, nondistended, normoactive bowel sounds EXTREMITIES: no edema. NEUROLOGICAL: Normal speech, gait not observed. Laboratory Results - last 24 hr 01/31/20 02/03/20 02/04/20 08:39 09:45 05:45 WBC 4.0 RBC 3.04 L Hgb 9.7 L Hct 28.3 L MCV 92.9 MCH 31.8 MCHC 34.2 RDW 15.8 Plt Count 101 L MPV 9.3 Absolute Neuts (auto) 1.7 Neutrophils % 41.6 L Lymphocytes % 40.9 H Monocytes % 13.0 H Eosinophils % 4.1 Basophils % 0.4 Nucleated RBC % 0 Sodium Potassium Chloride Carbon Dioxide Anion Gap BUN Creatinine Est GFR (CKD-EPI)AfAm Est GFR (CKD-EPI)NonAf Random Glucose Calcium Magnesium Total Bilirubin AST ALT Alkaline Phosphatase Total Protein Albumin Stool Occult Blood Negative Hep A IgM Ab Confirm Negative Hepatitis A Ab Total Positive H Hep Bs Antigen Negative Hep Bs Antibody Non reactive Hep B Core Total Ab Negative Hep B Core IgM Ab Negative Hepatitis Be Antibody Negative Hepatitis Be Antigen Negative 02/04/20 06:00 WBC RBC Hgb Hct MCV MCH MCHC RDW Plt Count MPV Absolute Neuts (auto) Neutrophils % Lymphocytes % Monocytes % Eosinophils % Basophils % Nucleated RBC % Sodium 140 Potassium 3.6 Chloride 104 Carbon Dioxide 28 Anion Gap 8 BUN 8.1 Creatinine 1.0 Est GFR (CKD-EPI)AfAm 119.02 Est GFR (CKD-EPI)NonAf 102.69 Random Glucose 81 Calcium 9.6 Magnesium 1.5 L Total Bilirubin 0.7 AST 161 H ALT 114 H Alkaline Phosphatase 98 Total Protein 7.6 Albumin 3.6 Stool Occult Blood Hep A IgM Ab Confirm Hepatitis A Ab Total Hep Bs Antigen Hep Bs Antibody Hep B Core Total Ab Hep B Core IgM Ab Hepatitis Be Antibody Hepatitis Be Antigen Active Medications Generic Name Dose Route Start Last Admin Trade Name Freq PRN Reason Stop Dose Admin Enoxaparin Sodium 40 mg 01/31/20 10:00 02/04/20 09:07 Lovenox - SQ 40 mg DAILY JUNITO Administration Folic Acid 1 mg 02/03/20 10:00 02/04/20 09:07 Folic Acid - PO 1 mg DAILY JUNITO Administration Lorazepam 0.5 mg 02/04/20 05:00 02/04/20 11:24 Ativan - PO 02/04/20 23:01 0.5 mg Q6H JUNITO Administration Lorazepam 0.5 mg 02/04/20 00:00 Ativan - PO 02/05/20 00:00 Q4H PRN Symptoms of Withdrawal Lorazepam 0.5 mg 02/05/20 05:00 Ativan - PO 02/05/20 05:01 ONCE ONE Morphine Sulfate 2 mg 01/31/20 04:00 01/31/20 09:43 Morphine Sulfate IVPUSH 2 mg Q4H PRN Administration PAIN LEVEL 6-10 Multivitamins/Minerals/Vitamin C 1 tab 02/03/20 10:00 02/04/20 09:07 Tab-A-Vit - PO 1 tab DAILY JUNITO Administration Pantoprazole Sodium 40 mg 02/01/20 10:00 02/04/20 09:07 Protonix Iv IVPUSH 40 mg BID JUNITO Administration Thiamine HCl 100 mg 02/03/20 10:00 02/04/20 09:08 Vitamin B1 - PO 100 mg DAILY JUNITO Administration ASSESSMENT/PLAN: Problem List - Problems (1) Alcoholic pancreatitis Assessment/Plan: lipase remains elevated. tolerating diet, no abdominal pain or discomfort. GI following, notes reviewed and appreciated. on low salt fat diet Protonix Code(s): K85.20 - ALCOHOL INDUCED ACUTE PANCREATITIS WITHOUT NECROSIS OR INFCT Qualifiers: Chronicity: acute Acute pancreatitis complication: no infection or necrosis Qualified Code(s): K85.20 - Alcohol induced acute pancreatitis without necrosis or infection (2) Depression Assessment/Plan: on no home medications. Code(s): F32.9 - MAJOR DEPRESSIVE DISORDER, SINGLE EPISODE, UNSPECIFIED (3) Severe malnutrition Assessment/Plan: as evidence by BMI 16.5 muscle and temporal wasting, appetite improving long standing etoh use since age of 17 tolerating low salt diet RD following Code(s): E43 - UNSPECIFIED SEVERE PROTEIN-CALORIE MALNUTRITION (4) Transaminitis Assessment/Plan: trended upward today. gi consulted Code(s): R74.0 - NONSPEC ELEV OF LEVELS OF TRANSAMNS & LACTIC ACID DEHYDRGNSE (5) Hypertension Assessment/Plan: bp stable Code(s): I10 - ESSENTIAL (PRIMARY) HYPERTENSION Qualifiers: Hypertension type: unspecified Qualified Code(s): I10 - Essential (primary) hypertension (6) Anemia Assessment/Plan: iron profile reviewed no overt signs of bleeding anemia likely from long standing etoh use. Code(s): D64.9 - ANEMIA, UNSPECIFIED (7) Prophylactic measure Assessment/Plan: lovenox 40mg daily Code(s): Z29.9 - ENCOUNTER FOR PROPHYLACTIC MEASURES, UNSPECIFIED Visit type - Emergency Visit Emergency Visit: Yes ED Registration Date: 01/31/20 Care time: The patient presented to the Emergency Department on the above date and was hospitalized for further evaluation of their emergent condition. - New Patient This patient is new to me today: No - Critical Care Critical Care patient: No - Discharge Referral Referred to [facility] Med P.C.: No
[2020-02-05] MEDS ORDERED: LORazepam 0.5 MG TABLET PO ONE (05:00)
[2020-02-05] MEDS: PANTOPRAZOLE SODIUM 40 MG VIAL IVPUSH SCH (09:31)
[2020-02-05] MEDS: MULTIVITAMINS (DAILY MVI) TABLET (FP) PO SCH (09:31)
[2020-02-05] MEDS: FOLIC ACID 1 MG TABLET (FP) PO SCH (09:31)
[2020-02-05] MEDS: ENOXAPARIN NA (PORCINE) 40 MG/0.4 ML DISP.SYRIN SQ SCH (09:31)
[2020-02-05] MEDS: THIAMINE HCL 100 MG TABLET (FP) PO SCH (09:32)
[2020-02-05 12:02] LABS: BASO % 0.9 % (0-2.0); EOS % 3.1 % (0-4.5); HEMATOCRIT 29.6 % (35.4-49); HEMOGLOBIN 10.1 GM/dL (11.7-16.9); LYMPH % 34.8 % (8-40); MCHC 33.9 g/dl (32.0-35.9); MEAN CELL VOLUME 91.5 fl (80-96); MEAN PLT VOLUME 8.8 fl (7.5-11.1); NEUT % 46.2 % (42.8-82.8); PLATELET COUNT 138 K/MM3 (134-434); RBC 3.24 M/mm3 (4.00-5.60); RDW 16.3 % (11.9-15.9); WHITE BLOOD COUNT 3.9 K/mm3 (4.0-10.0)
[2020-02-05 12:36] LABS: BILIRUBIN,TOTAL 0.5 mg/dL (0.2-1); CALCIUM 10.4 mg/dL (8.5-10.1); MAGNESIUM 1.9 mg/dL (1.8-2.4); POTASSIUM 3.8 mmol/L (3.5-5.1); TOT PROT 8.1 g/dl (6.4-8.2)
--- NOTE | 2020-02-05 15:47 | PN ---
Physical Exam: SUBJECTIVE: Patient seen and examined. denies any abdominal pain. no nausea or vomiting. OBJECTIVE: LFTs trending up hepatitis panel noted u/s shows fatty liver disease will stop protonix ----- Patient is a 29 year old male with a past medical history of hypertension, depression, ETOH abuse with hx of seizure (1 month ago), and pancreatitis (2 months ago) who was sent from [facility] (prior to admission) for evaluation of abdominal pain. CT abdomen shows mesenteric infiltration at pancreatic tail suggestive of acute pancreatitis. covid status: serology negative as of 01/30/2020 Vital Signs Period Temp Pulse Resp BP Sys/Moore Pulse Ox Last 24 Hr 97.5 F-98.4 F 54-73 18-20 121-135/68-86 100-100 GENERAL: The patient is awake, alert, and fully oriented, in no acute distress. HEAD: Normal with no signs of trauma. EYES: PERRL, extraocular movements intact, sclera anicteric, conjunctiva clear. No ptosis. ENT: Ears normal, nares patent, oropharynx clear without exudates NECK: Trachea midline, full range of motion, supple. LUNGS: Breath sounds equal, clear to auscultation bilaterally HEART: Regular rate and rhythm ABDOMEN: Soft, nontender, nondistended, normoactive bowel sounds EXTREMITIES: no edema. NEUROLOGICAL: Normal speech, gait not observed. Laboratory Results - last 24 hr 01/31/20 02/05/20 02/05/20 08:39 11:39 11:39 WBC 3.9 L RBC 3.24 L Hgb 10.1 L Hct 29.6 L MCV 91.5 MCH 31.0 MCHC 33.9 RDW 16.3 H Plt Count 138 D MPV 8.8 Absolute Neuts (auto) 1.8 Neutrophils % 46.2 Lymphocytes % 34.8 Monocytes % 15.0 H Eosinophils % 3.1 Basophils % 0.9 Nucleated RBC % 0 Sodium 136 Potassium 3.8 Chloride 100 Carbon Dioxide 32 Anion Gap 4 L BUN 10.0 Creatinine 1.0 Est GFR (CKD-EPI)AfAm 119.02 Est GFR (CKD-EPI)NonAf 102.69 Random Glucose 99 Calcium 10.4 H Magnesium 1.9 Total Bilirubin 0.5 AST 209 H ALT 172 H Alkaline Phosphatase 101 Total Protein 8.1 Albumin 4.0 CMV DNA Quant PCR Negative CMV DNA PCR log endoscopic technician/mL TNP Active Medications Generic Name Dose Route Start Last Admin Trade Name Travisq PRN Reason Stop Dose Admin Enoxaparin Sodium 40 mg 01/31/20 10:00 02/05/20 09:31 Lovenox - SQ 40 mg DAILY JUNITO Administration Folic Acid 1 mg 02/03/20 10:00 02/05/20 09:31 Folic Acid - PO 1 mg DAILY JUNITO Administration Morphine Sulfate 2 mg 01/31/20 04:00 01/31/20 09:43 Morphine Sulfate IVPUSH 2 mg Q4H PRN Administration PAIN LEVEL 6-10 Multivitamins/Minerals/Vitamin C 1 tab 02/03/20 10:00 02/05/20 09:31 Tab-A-Vit - PO 1 tab DAILY JUNITO Administration Pantoprazole Sodium 40 mg 02/01/20 10:00 02/05/20 09:31 Protonix Iv IVPUSH 40 mg BID JUNITO Administration Thiamine HCl 100 mg 02/03/20 10:00 02/05/20 09:32 Vitamin B1 - PO 100 mg DAILY JUNITO Administration ASSESSMENT/PLAN: Problem List - Problems (1) Alcoholic pancreatitis Assessment/Plan: lipase remains elevated. tolerating diet, no abdominal pain or discomfort. GI following, notes reviewed and appreciated. on low salt fat diet Protonix stopped for elevated LFTs Code(s): K85.20 - ALCOHOL INDUCED ACUTE PANCREATITIS WITHOUT NECROSIS OR INFCT Qualifiers: Chronicity: acute Acute pancreatitis complication: no infection or necrosis Qualified Code(s): K85.20 - Alcohol induced acute pancreatitis without necrosis or infection (2) Depression Assessment/Plan: on no home medications. Code(s): F32.9 - MAJOR DEPRESSIVE DISORDER, SINGLE EPISODE, UNSPECIFIED (3) Severe malnutrition Assessment/Plan: appetite improving long standing etoh use since age of 17 tolerating low salt diet RD following Code(s): E43 - UNSPECIFIED SEVERE PROTEIN-CALORIE MALNUTRITION (4) Transaminitis Assessment/Plan: trended upward today. gi consulted Code(s): R74.0 - NONSPEC ELEV OF LEVELS OF TRANSAMNS & LACTIC ACID DEHYDRGNSE (5) Hypertension Assessment/Plan: bp stable Code(s): I10 - ESSENTIAL (PRIMARY) HYPERTENSION Qualifiers: Hypertension type: unspecified Qualified Code(s): I10 - Essential (primary) hypertension (6) Anemia Assessment/Plan: iron profile reviewed no overt signs of bleeding anemia likely from long standing etoh use. Code(s): D64.9 - ANEMIA, UNSPECIFIED (7) Prophylactic measure Assessment/Plan: lovenox 40mg daily Code(s): Z29.9 - ENCOUNTER FOR PROPHYLACTIC MEASURES, UNSPECIFIED Visit type - Emergency Visit Emergency Visit: Yes ED Registration Date: 01/31/20 Care time: The patient presented to the Emergency Department on the above date and was hospitalized for further evaluation of their emergent condition. - New Patient This patient is new to me today: No - Critical Care Critical Care patient: No - Discharge Referral Referred to [facility] No
--- NOTE | 2020-02-05 16:45 | PN ---
Progress Note (short form) - Note Progress Note: Asked to revaluate abnormal LFTs Not sure what his baseline is? Hepatomegaly and fatty liver noted on US Was on protonix BID: that has been stopped and can cause elevation in transaminases Hepatitis serologies negative Check CPK to evaluate for concomitant rhabdomyolysis leading to transaminitis Stop Lovenox if the patient can ambulate, use SCD's and does not need chemical DVT prophylaxis Check ceruloplasmin Contact patient's PMD if he has one to obtain baseline LFTs Monitor LFTs Avoid hepatotoxic agents if worsening leukopenia and anemia, further work-up per primary team Needs complete alcohol cessation Problem List - Problems (1) Alcoholic pancreatitis Code(s): K85.20 - ALCOHOL INDUCED ACUTE PANCREATITIS WITHOUT NECROSIS OR INFCT Qualifiers: Chronicity: acute Acute pancreatitis complication: no infection or necrosis Qualified Code(s): K85.20 - Alcohol induced acute pancreatitis without necrosis or infection
[2020-02-05] MEDS ORDERED: MELATONIN 5 MG TABLETS PO PRN (21:10)
--- NOTE | 2020-02-06 08:34 | PN.GI ---
GI Progress Note Subjective: No acute events States feeling well No abdominal pain - Objective Vital Signs: Vital Signs Temperature 97.3 F L 02/06/20 05:47 Pulse Rate 56 L 02/06/20 05:47 Respiratory Rate 02/06/20 05:47 Blood Pressure 130/74 02/06/20 05:47 O2 Sat by Pulse Oximetry (%) 100 02/05/20 20:18 Constitutional: Calm Eyes: Yes: Cataracts. No: Sclera Icterus Cardiovascular: Yes: Regular Rate and Rhythm. No: Murmur Respiratory: Yes: CTA Bilaterally Gastrointestinal Inspection: No: Distention ...Auscultate: Yes: Normoactive Bowel Sounds ...Palpate: Yes: Soft. No: Hepatomegaly, Splenomegaly, Tenderness ...Percussion: No: Tympanitic Edema: No (No LE edema) Neurological: Yes: Alert Labs: CBC, BMP 02/05/20 11:39 02/05/20 11:39 INR, PTT INR 1.07 (0.83-1.09) 01/31/20 00:00 Problem List - Problems (1) Alcoholic pancreatitis Assessment/Plan: Clinically doing well and tolerating diet Code(s): K85.20 - ALCOHOL INDUCED ACUTE PANCREATITIS WITHOUT NECROSIS OR INFCT Qualifiers: Chronicity: acute Acute pancreatitis complication: no infection or necrosis Qualified Code(s): K85.20 - Alcohol induced acute pancreatitis without necrosis or infection (2) Abnormal liver function tests Assessment/Plan: Asymptomatic AM labs not drawn as of yet Will need outpatient evaluation as well after this hospitalization. He lives in [place]. He should ideally have medical care arranged where he lives prior to discharge as he has no primary care provider in [place] and is only in [place] for detox. Advsed need for complete alcohol cessation Awaiting today's labs Check ceruloplasmin. Will need to be apporived by pathology Avoid hepatotoxic agents Code(s): R94.5 - ABNORMAL RESULTS OF LIVER FUNCTION STUDIES
[2020-02-06] MEDS: FOLIC ACID 1 MG TABLET (FP) PO SCH (09:19)
[2020-02-06] MEDS: THIAMINE HCL 100 MG TABLET (FP) PO SCH (09:19)
[2020-02-06] MEDS: MULTIVITAMINS (DAILY MVI) TABLET (FP) PO SCH (09:19)
--- NOTE | 2020-02-06 10:33 | PN ---
Physical Exam: SUBJECTIVE: Patient seen and examined at the bedside. no chest pain, no abdominal pain or nausea. feels well and tolerating diet. OBJECTIVE: patient w/o PCP no baseline AST/ALT to compare to. last saw a PCP when he was a teenager on d/c will refer to [facility] for follow up, he then can set himself up with a PCP in [place]. awaitng labs. protonix stopped -------- Patient is a 29 year old male with a past medical history of hypertension, depression, ETOH abuse with hx of seizure (1 month ago), and pancreatitis (2 months ago) who was sent from [facility] (prior to admission) for evaluation of abdominal pain. CT abdomen shows mesenteric infiltration at pancreatic tail suggestive of acute pancreatitis. covid status: serology negative as of 01/30/2020 Vital Signs Period Temp Pulse Resp BP Sys/Moore Pulse Ox Last 24 Hr 97.3 F-98.5 F 56-73 20-22 110-134/68-86 100-100 GENERAL: The patient is awake, alert, and fully oriented, in no acute distress. HEAD: Normal with no signs of trauma. EYES: PERRL, extraocular movements intact, sclera anicteric, conjunctiva clear. No ptosis. ENT: Ears normal, nares patent, oropharynx clear without exudates NECK: Trachea midline, full range of motion, supple. LUNGS: Breath sounds equal, clear to auscultation bilaterally HEART: Regular rate and rhythm ABDOMEN: Soft, nontender, nondistended, normoactive bowel sounds EXTREMITIES: no edema. NEUROLOGICAL: Normal speech, gait not observed. Laboratory Results - last 24 hr 02/05/20 02/05/20 11:39 11:39 WBC 3.9 L RBC 3.24 L Hgb 10.1 L Hct 29.6 L MCV 91.5 MCH 31.0 MCHC 33.9 RDW 16.3 H Plt Count 138 D MPV 8.8 Absolute Neuts (auto) 1.8 Neutrophils % 46.2 Lymphocytes % 34.8 Monocytes % 15.0 H Eosinophils % 3.1 Basophils % 0.9 Nucleated RBC % 0 Sodium 136 Potassium 3.8 Chloride 100 Carbon Dioxide 32 Anion Gap 4 L BUN 10.0 Creatinine 1.0 Est GFR (CKD-EPI)AfAm 119.02 Est GFR (CKD-EPI)NonAf 102.69 Random Glucose 99 Calcium 10.4 H Magnesium 1.9 Total Bilirubin 0.5 AST 209 H ALT 172 H Alkaline Phosphatase 101 Total Protein 8.1 Albumin 4.0 Active Medications Generic Name Dose Route Start Last Admin Trade Name Freq PRN Reason Stop Dose Admin Folic Acid 1 mg 02/03/20 10:00 02/06/20 09:19 Folic Acid - PO 1 mg DAILY JUNITO Administration Melatonin 5 mg 02/05/20 21:10 02/05/20 21:58 Melatonin PO 5 mg HS PRN Administration INSOMNIA Multivitamins/Minerals/Vitamin C 1 tab 02/03/20 10:00 02/06/20 09:19 Tab-A-Vit - PO 1 tab DAILY JUNITO Administration Thiamine HCl 100 mg 02/03/20 10:00 02/06/20 09:19 Vitamin B1 - PO 100 mg DAILY JUNITO Administration ASSESSMENT/PLAN: Problem List - Problems (1) Alcoholic pancreatitis Assessment/Plan: tolerating diet, no abdominal pain or discomfort. GI following, notes reviewed and appreciated. on low salt fat diet Protonix stopped for elevated LFTs LFTs improving Code(s): K85.20 - ALCOHOL INDUCED ACUTE PANCREATITIS WITHOUT NECROSIS OR INFCT Qualifiers: Chronicity: acute Acute pancreatitis complication: no infection or necrosis Qualified Code(s): K85.20 - Alcohol induced acute pancreatitis without necrosis or infection (2) Depression Assessment/Plan: on no home medications. Code(s): F32.9 - MAJOR DEPRESSIVE DISORDER, SINGLE EPISODE, UNSPECIFIED (3) Severe malnutrition Assessment/Plan: appetite improving long standing etoh use since age of 17 tolerating low salt diet RD following Code(s): E43 - UNSPECIFIED SEVERE PROTEIN-CALORIE MALNUTRITION (4) Transaminitis Assessment/Plan: trended upward today. gi consulted Code(s): R74.0 - NONSPEC ELEV OF LEVELS OF TRANSAMNS & LACTIC ACID DEHYDRGNSE (5) Hypertension Assessment/Plan: bp stable Code(s): I10 - ESSENTIAL (PRIMARY) HYPERTENSION Qualifiers: Hypertension type: unspecified Qualified Code(s): I10 - Essential (primary) hypertension (6) Anemia Assessment/Plan: iron profile reviewed no overt signs of bleeding anemia likely from long standing etoh use. Code(s): D64.9 - ANEMIA, UNSPECIFIED (7) Prophylactic measure Assessment/Plan: lovenox 40mg daily Code(s): Z29.9 - ENCOUNTER FOR PROPHYLACTIC MEASURES, UNSPECIFIED Visit type - Emergency Visit Emergency Visit: Yes ED Registration Date: 01/31/20 Care time: The patient presented to the Emergency Department on the above date and was hospitalized for further evaluation of their emergent condition. - New Patient This patient is new to me today: No - Critical Care Critical Care patient: No - Discharge Referral Referred to [facility] No
[2020-02-06 11:03] LABS: BASO % 0.9 % (0-2.0); EOS % 3.6 % (0-4.5); HEMATOCRIT 29.9 % (35.4-49); MCH 31.1 pg (25.7-33.7); MCHC 33.4 g/dl (32.0-35.9); MEAN CELL VOLUME 92.9 fl (80-96); MEAN PLT VOLUME 8.9 fl (7.5-11.1); MONO % 20.6 % (3.8-10.2); NEUT % 35.9 % (42.8-82.8); PLATELET COUNT 162 K/MM3 (134-434); RBC 3.22 M/mm3 (4.00-5.60); RDW 17.2 % (11.9-15.9); WHITE BLOOD COUNT 3.5 K/mm3 (4.0-10.0)
[2020-02-06 11:26] LABS: BILIRUBIN,TOTAL 0.6 mg/dL (0.2-1); BLOOD UREA NITROGEN 11.3 mg/dL (7-18); CALCIUM 10.1 mg/dL (8.5-10.1); MAGNESIUM 1.8 mg/dL (1.8-2.4); POTASSIUM 3.8 mmol/L (3.5-5.1); TOT PROT 8.1 g/dl (6.4-8.2)
[2020-02-06 12:31] LABS: ANISOCYTOSIS 1+; MACROCYTOSIS 0; PLATELET ESTIMATE NORMAL
[2020-02-06] MEDS ORDERED: MELATONIN 5 MG TABLETS PO PRN (15:39)
[2020-02-07] MEDS: THIAMINE HCL 100 MG TABLET (FP) PO SCH (09:38)
[2020-02-07] MEDS: MULTIVITAMINS (DAILY MVI) TABLET (FP) PO SCH (09:38)
[2020-02-07] MEDS: FOLIC ACID 1 MG TABLET (FP) PO SCH (09:38)
--- NOTE | 2020-02-07 11:03 | PN ---
Physical Exam: SUBJECTIVE: Patient seen and examined. denies abdominal pain or discomfort. tolerating diet without issue. OBJECTIVE: Patient is a 29 year old male with a past medical history of hypertension, depression, ETOH abuse with hx of seizure (1 month ago), and pancreatitis (2 months ago) who was sent from [facility] (prior to admission) for evaluation of abdominal pain. CT abdomen shows mesenteric infiltration at pancreatic tail suggestive of acute pancreatitis. covid status: serology negative as of 01/30/2020 liver function to be repeated in a.m., if continues to trend down will plan to d/c back to [facility] Sunday for rehab if bed available. he will need follow up for repeat labs. Period Temp Pulse Resp BP Sys/Moore Pulse Ox Last 24 Hr 97.8 F-98.5 F 66-88 18-18 125-136/70-87 100 GENERAL: The patient is awake, alert, and fully oriented, in no acute distress. HEAD: Normal with no signs of trauma. EYES: PERRL, extraocular movements intact, sclera anicteric, conjunctiva clear. No ptosis. ENT: Ears normal, nares patent, oropharynx clear without exudates NECK: Trachea midline, full range of motion, supple. LUNGS: Breath sounds equal, clear to auscultation bilaterally HEART: Regular rate and rhythm ABDOMEN: Soft, nontender, nondistended, normoactive bowel sounds EXTREMITIES: no edema. NEUROLOGICAL: Normal speech, gait not observed 02/06/20 02/06/20 09:50 09:50 WBC 3.5 L RBC 3.22 L Hgb 10.0 L Hct 29.9 L MCV 92.9 MCH 31.1 MCHC 33.4 RDW 17.2 H Plt Count 162 MPV 8.9 Absolute Neuts (auto) 1.3 L Neutrophils % 35.9 L D Neutrophils % (Manual) 36.4 L Band Neutrophils % 0.0 Lymphocytes % 39.0 Lymphocytes % (Manual) 41.4 H Monocytes % 20.6 H Monocytes % (Manual) 15 H Eosinophils % 3.6 Eosinophils % (Manual) 2.0 Basophils % 0.9 Basophils % (Manual) 1.0 Myelocytes % (Man) 0 Promyelocytes % (Man) 0 Blast Cells % (Manual) 0 Nucleated RBC % 0 Metamyelocytes 1 Hypochromia 0 Platelet Estimate Normal Platelet Comment Present Polychromasia 0 Poikilocytosis 0 Anisocytosis 1+ Microcytosis 1+ Macrocytosis 0 Sodium 133 L Potassium 3.8 Chloride 98 Carbon Dioxide 30 Anion Gap 6 L BUN 11.3 Creatinine 1.0 Est GFR (CKD-EPI)AfAm 119.02 Est GFR (CKD-EPI)NonAf 102.69 Random Glucose 103 Calcium 10.1 Magnesium 1.8 Total Bilirubin 0.6 AST 164 H ALT 181 H Alkaline Phosphatase 94 Creatine Kinase 49 Total Protein 8.1 Albumin 4.0 Active Medications Generic Name Dose Route Start Last Admin Trade Name Freq PRN Reason Stop Dose Admin Folic Acid 1 mg 02/07/20 10:00 02/07/20 09:38 Folic Acid - PO 1 mg DAILY JUNITO Administration Melatonin 5 mg 02/07/20 21:00 Melatonin PO DAILY@2100 [facility] Multivitamins/Minerals/Vitamin C 1 tab 02/07/20 10:00 02/07/20 09:38 Tab-A-Vit - PO 1 tab DAILY JUNITO Administration Thiamine HCl 100 mg 02/07/20 10:00 02/07/20 09:38 Vitamin B1 - PO 100 mg DAILY JUNITO Administration ASSESSMENT/PLAN: Problem List - Problems (1) Alcoholic pancreatitis Assessment/Plan: tolerating diet, no abdominal pain or discomfort. GI following, notes reviewed and appreciated. on low salt fat diet Protonix stopped for elevated LFTs LFTs improving daily - will need outpatient follow up to monitor closely. patient will be sent referral to [facility] for new PCP. Code(s): K85.20 - ALCOHOL INDUCED ACUTE PANCREATITIS WITHOUT NECROSIS OR INFCT Qualifiers: Chronicity: acute Acute pancreatitis complication: no infection or necrosis Qualified Code(s): K85.20 - Alcohol induced acute pancreatitis without necrosis or infection (2) Depression Assessment/Plan: on no home medications. Code(s): F32.9 - MAJOR DEPRESSIVE DISORDER, SINGLE EPISODE, UNSPECIFIED (3) Severe malnutrition Assessment/Plan: appetite improving long standing etoh use since age of 17 tolerating low salt diet RD following Code(s): E43 - UNSPECIFIED SEVERE PROTEIN-CALORIE MALNUTRITION (4) Transaminitis Assessment/Plan: improving Code(s): R74.0 - NONSPEC ELEV OF LEVELS OF TRANSAMNS & LACTIC ACID DEHYDRGNSE (5) Hypertension Assessment/Plan: bp stable Code(s): I10 - ESSENTIAL (PRIMARY) HYPERTENSION Qualifiers: Hypertension type: unspecified Qualified Code(s): I10 - Essential (primary) hypertension (6) Anemia Assessment/Plan: iron profile reviewed no overt signs of bleeding anemia likely from long standing etoh use. Code(s): D64.9 - ANEMIA, UNSPECIFIED (7) Prophylactic measure Assessment/Plan: lovenox 40mg daily Code(s): Z29.9 - ENCOUNTER FOR PROPHYLACTIC MEASURES, UNSPECIFIED Visit type - Emergency Visit Emergency Visit: Yes ED Registration Date: 01/31/20 Care time: The patient presented to the Emergency Department on the above date and was hospitalized for further evaluation of their emergent condition. - New Patient This patient is new to me today: No - Critical Care Critical Care patient: No - Discharge Referral Referred to [facility] No
[2020-02-07 11:53] LABS: BASO % 0.9 % (0-2.0); HEMATOCRIT 30.1 % (35.4-49); HEMOGLOBIN 10.2 GM/dL (11.7-16.9); LYMPH % 40.2 % (8-40); MCH 31.6 pg (25.7-33.7); MEAN CELL VOLUME 92.9 fl (80-96); MEAN PLT VOLUME 8.8 fl (7.5-11.1); MONO % 22.4 % (3.8-10.2); NEUT % 32.5 % (42.8-82.8); PLATELET COUNT 204 K/MM3 (134-434); RBC 3.24 M/mm3 (4.00-5.60); RDW 17.2 % (11.9-15.9); WHITE BLOOD COUNT 3.6 K/mm3 (4.0-10.0)
[2020-02-07 12:17] LABS: BILIRUBIN,TOTAL 0.4 mg/dL (0.2-1); BLOOD UREA NITROGEN 9.8 mg/dL (7-18); CREATININE 0.9 mg/dL (0.55-1.3); POTASSIUM 4.1 mmol/L (3.5-5.1)
[2020-02-07 16:12] LABS: PLATELET ESTIMATE ADEQUATE
[2020-02-07] MEDS: MELATONIN 5 MG TABLETS PO SCH (21:49)
[2020-02-08] MEDS: FOLIC ACID 1 MG TABLET (FP) PO SCH (09:17)
[2020-02-08] MEDS: MULTIVITAMINS (DAILY MVI) TABLET (FP) PO SCH (09:17)
[2020-02-08] MEDS: THIAMINE HCL 100 MG TABLET (FP) PO SCH (09:17)
[2020-02-08 12:13] LABS: BASO % 0.9 % (0-2.0); HEMATOCRIT 31.9 % (35.4-49); HEMOGLOBIN 10.7 GM/dL (11.7-16.9); LYMPH % 39.8 % (8-40); MCH 31.2 pg (25.7-33.7); MCHC 33.5 g/dl (32.0-35.9); MEAN CELL VOLUME 93.1 fl (80-96); MONO % 20.6 % (3.8-10.2); NEUT % 34.7 % (42.8-82.8); PLATELET COUNT 248 K/MM3 (134-434); RBC 3.43 M/mm3 (4.00-5.60); RDW 17.3 % (11.9-15.9); WHITE BLOOD COUNT 4.1 K/mm3 (4.0-10.0)
[2020-02-08 12:40] LABS: ALBUMIN 4.4 g/dl (3.4-5.0); BILIRUBIN,TOTAL 0.4 mg/dL (0.2-1); BLOOD UREA NITROGEN 12.4 mg/dL (7-18); CALCIUM 10.4 mg/dL (8.5-10.1); POTASSIUM 4.4 mmol/L (3.5-5.1); TOT PROT 8.6 g/dl (6.4-8.2)
--- NOTE | 2020-02-08 13:50 | PN ---
Physical Exam: SUBJECTIVE: Patient seen and examined OBJECTIVE: Patient is a 29 year old male with a past medical history of hypertension, depression, ETOH abuse with hx of seizure (1 month ago), and pancreatitis (2 months ago) who was sent from [facility] (prior to admission) for evaluation of abdominal pain. CT abdomen shows mesenteric infiltration at pancreatic tail suggestive of acute pancreatitis. covid status: serology negative as of 01/30/2020, repeating serology and antibodies LFTs improving Period Temp Pulse Resp BP Sys/Moore Pulse Ox Last 24 Hr 97.6 F-98.8 F 62-92 18-18 112-126/64-81 100-100 GENERAL: The patient is awake, alert, and fully oriented, in no acute distress. HEAD: Normal with no signs of trauma. EYES: PERRL, extraocular movements intact, sclera anicteric, conjunctiva clear. No ptosis. ENT: Ears normal, nares patent, oropharynx clear without exudates NECK: Trachea midline, full range of motion, supple. LUNGS: Breath sounds equal, clear to auscultation bilaterally HEART: Regular rate and rhythm ABDOMEN: Soft, nontender, nondistended, normoactive bowel sounds EXTREMITIES: no edema. NEUROLOGICAL: Normal speech, gait not observed Laboratory Results - last 24 hr 02/07/20 02/08/20 02/08/20 11:00 11:43 11:43 WBC 4.1 RBC 3.43 L Hgb 10.7 L Hct 31.9 L MCV 93.1 MCH 31.2 MCHC 33.5 RDW 17.3 H Plt Count 248 D MPV 8.0 Absolute Neuts (auto) 1.4 L Neutrophils % 34.7 L Neutrophils % (Manual) 33.0 L Band Neutrophils % 0.0 Lymphocytes % 39.8 Lymphocytes % (Manual) 40.0 Monocytes % 20.6 H Monocytes % (Manual) 21 H Eosinophils % 4.0 Eosinophils % (Manual) 6.0 H D Basophils % 0.9 Basophils % (Manual) 0.0 Nucleated RBC % 0 Platelet Estimate Adequate Sodium 137 Potassium 4.4 Chloride 100 Carbon Dioxide 28 Anion Gap 9 BUN 12.4 Creatinine 1.0 Est GFR (CKD-EPI)AfAm 119.02 Est GFR (CKD-EPI)NonAf 102.69 Random Glucose 107 H Calcium 10.4 H Magnesium 2.0 Total Bilirubin 0.4 AST 85 H ALT 153 H Alkaline Phosphatase 91 Total Protein 8.6 H Albumin 4.4 Active Medications Generic Name Dose Route Start Last Admin Trade Name Sulaiman PRN Reason Stop Dose Admin Folic Acid 1 mg 02/07/20 10:00 02/08/20 09:17 Folic Acid - PO 1 mg DAILY JUNITO Administration Melatonin 5 mg 02/07/20 21:00 02/07/20 21:49 Melatonin PO 5 mg DAILY@2100 JUNITO Administration Multivitamins/Minerals/Vitamin C 1 tab 02/07/20 10:00 02/08/20 09:17 Tab-A-Vit - PO 1 tab DAILY JUNITO Administration Thiamine HCl 100 mg 02/07/20 10:00 02/08/20 09:17 Vitamin B1 - PO 100 mg DAILY JUNITO Administration ASSESSMENT/PLAN: Problem List - Problems (1) Alcoholic pancreatitis Assessment/Plan: tolerating diet, no abdominal pain or discomfort. GI following, notes reviewed and appreciated. on low salt fat diet Protonix stopped for elevated LFTs LFTs improving daily - will need outpatient follow up to monitor closely. patient will be sent referral to [facility] for new PCP. Code(s): K85.20 - ALCOHOL INDUCED ACUTE PANCREATITIS WITHOUT NECROSIS OR INFCT Qualifiers: Chronicity: acute Acute pancreatitis complication: no infection or necrosis Qualified Code(s): K85.20 - Alcohol induced acute pancreatitis without necrosis or infection (2) Depression Assessment/Plan: on no home medications. Code(s): F32.9 - MAJOR DEPRESSIVE DISORDER, SINGLE EPISODE, UNSPECIFIED (3) Severe malnutrition Assessment/Plan: appetite improving long standing etoh use since age of 17 tolerating low salt diet RD following Code(s): E43 - UNSPECIFIED SEVERE PROTEIN-CALORIE MALNUTRITION (4) Transaminitis Assessment/Plan: improving Code(s): R74.0 - NONSPEC ELEV OF LEVELS OF TRANSAMNS & LACTIC ACID DEHYDRGNSE (5) Hypertension Assessment/Plan: bp stable Code(s): I10 - ESSENTIAL (PRIMARY) HYPERTENSION Qualifiers: Hypertension type: unspecified Qualified Code(s): I10 - Essential (primary) hypertension (6) Anemia Assessment/Plan: iron profile reviewed no overt signs of bleeding anemia likely from long standing etoh use. Code(s): D64.9 - ANEMIA, UNSPECIFIED (7) Prophylactic measure Assessment/Plan: ambulation Code(s): Z29.9 - ENCOUNTER FOR PROPHYLACTIC MEASURES, UNSPECIFIED (8) Alcohol dependence with withdrawal, unspecified Assessment/Plan: completed Ativan protocol Code(s): F10.239 - ALCOHOL DEPENDENCE WITH WITHDRAWAL, UNSPECIFIED Qualifiers: Complication of substance-induced condition: with unspecified complication Qualified Code(s): F10.239 - Alcohol dependence with withdrawal, unspecified Visit type - Emergency Visit Emergency Visit: Yes ED Registration Date: 01/31/20 Care time: The patient presented to the Emergency Department on the above date and was hospitalized for further evaluation of their emergent condition. - New Patient This patient is new to me today: No - Critical Care Critical Care patient: No - Discharge Referral Referred to [facility] No
[2020-02-08 14:11] LABS: ANISOCYTOSIS 1+; MACROCYTOSIS 0; PLATELET ESTIMATE NORMAL
[2020-02-08] MEDS: MELATONIN 5 MG TABLETS PO SCH (21:45)
[2020-02-09] MEDS: FOLIC ACID 1 MG TABLET (FP) PO SCH (09:27)
[2020-02-09] MEDS: THIAMINE HCL 100 MG TABLET (FP) PO SCH (09:27)
[2020-02-09] MEDS: MULTIVITAMINS (DAILY MVI) TABLET (FP) PO SCH (09:27)
--- NOTE | 2020-02-09 10:44 | PN.GI ---
GI Progress Note Subjective: No focal complaints - Objective Vital Signs: Vital Signs Temperature 98.7 F 02/09/20 06:01 Pulse Rate 87 02/09/20 06:01 Respiratory Rate 18 02/09/20 06:01 Blood Pressure 128/67 02/09/20 06:01 O2 Sat by Pulse Oximetry (%) 100 02/08/20 21:00 Constitutional: Calm Eyes: No: Sclera Icterus Cardiovascular: Yes: Regular Rate and Rhythm Respiratory: Yes: CTA Bilaterally Gastrointestinal Inspection: No: Distention ...Auscultate: Yes: Normoactive Bowel Sounds ...Palpate: Yes: Soft. No: Hepatomegaly, Splenomegaly, Tenderness ...Percussion: No: Tympanitic Edema: No (No LE edema) Neurological: Yes: Alert Labs: CBC, BMP 02/08/20 11:43 02/08/20 11:43 INR, PTT INR 1.07 (0.83-1.09) 01/31/20 00:00 Problem List - Problems (1) Alcoholic pancreatitis Assessment/Plan: Clinically improved Code(s): K85.20 - ALCOHOL INDUCED ACUTE PANCREATITIS WITHOUT NECROSIS OR INFCT Qualifiers: Chronicity: acute Acute pancreatitis complication: no infection or necrosis Qualified Code(s): K85.20 - Alcohol induced acute pancreatitis without necrosis or infection (2) Abnormal liver function tests Assessment/Plan: Improving CPK normal Code(s): R94.5 - ABNORMAL RESULTS OF LIVER FUNCTION STUDIES (3) Abnormal complete blood count Assessment/Plan: Anemia, abnormal differential Hematology evaluation Ordered EBV PCR Code(s): R79.89 - OTHER SPECIFIED ABNORMAL FINDINGS OF BLOOD CHEMISTRY
--- NOTE | 2020-02-09 11:11 | PN ---
Physical Exam: SUBJECTIVE: Patient seen and examined at the bedside. ambulating in room. denies any malaise. no shortness of breath or abdominal pain. tolerating meals. OBJECTIVE: Follow up: Patient is willing to go to [facility] for a follow up visit post discharge. He does not want to get a PCP in [place] as he plans to move to [place] with his brother after he completes rehab at [facility]. Patient has been accepted back to [facility] by Dr. Kathie Rowland as of 02/09/2020 so long as covid is negative (pending). antibody test is also pending but does not have to waiting for results of antibody testing prior to going to [facility]. Patient has a follow up appointment as follows: Dr. Lira. Reason for visit: post hospital visit/monitor liver function Date/time: February 23: 11:15a.m. Patient to bring ID card, insurance card. -------- Patient is a 29 year old male with a past medical history of hypertension, depression, ETOH abuse with hx of seizure (1 month ago), and pancreatitis (2 months ago) who was sent from [facility] for evaluation of abdominal pain. CT abdomen shows mesenteric infiltration at pancreatic tail suggestive of acute pancreatitis. Patient medically managed with IVF, Protonix and bowel rest. He improved clinically and diet has been upgraded which he is tolerating. No further abdominal pain/nausea or vomiting. He denies any further GI symptoms. on 02/04/2020, LFTs began to trend up and GI was reconsulted. Protonix was discontinued, and hepatitis serologies were negative. CPK normal. His LFTs are now trending down and patient has been set up with a follow up appt for close monitoring. covid status: serology negative as of 01/30/2020, repeating serology and antibodies Period Temp Pulse Resp BP Sys/[place] Pulse Ox Last 24 Hr 97.8 F-98.7 F 68-87 18-18 98-129/57-77 99-100 GENERAL: The patient is awake, alert, and fully oriented, in no acute distress. HEAD: Normal with no signs of trauma. EYES: PERRL, extraocular movements intact, sclera anicteric, conjunctiva clear. No ptosis. ENT: Ears normal, nares patent, oropharynx clear without exudates NECK: Trachea midline, full range of motion, supple. LUNGS: Breath sounds equal, clear to auscultation bilaterally HEART: Regular rate and rhythm ABDOMEN: Soft, nontender, nondistended, normoactive bowel sounds EXTREMITIES: no edema. NEUROLOGICAL: Normal speech, gait steady Laboratory Results - last 24 hr 02/08/20 02/08/20 11:43 11:43 WBC 4.1 RBC 3.43 L Hgb 10.7 L Hct 31.9 L MCV 93.1 MCH 31.2 MCHC 33.5 RDW 17.3 H Plt Count 248 D MPV 8.0 Absolute Neuts (auto) 1.4 L Neutrophils % 34.7 L Neutrophils % (Manual) 28.3 L Band Neutrophils % 0.0 Lymphocytes % 39.8 Lymphocytes % (Manual) 47.8 H Monocytes % 20.6 H Monocytes % (Manual) 16 H Eosinophils % 4.0 Eosinophils % (Manual) 4.3 Basophils % 0.9 Basophils % (Manual) 1.1 D Myelocytes % (Man) 0 Promyelocytes % (Man) 0 Blast Cells % (Manual) 0 Nucleated RBC % 0 Metamyelocytes 0 D Hypochromia 0 Platelet Estimate Normal Platelet Comment Present Polychromasia 0 Poikilocytosis 0 Anisocytosis 1+ Microcytosis 1+ Macrocytosis 0 Sodium 137 Potassium 4.4 Chloride 100 Carbon Dioxide 28 Anion Gap 9 BUN 12.4 Creatinine 1.0 Est GFR (CKD-EPI)AfAm 119.02 Est GFR (CKD-EPI)NonAf 102.69 Random Glucose 107 H Calcium 10.4 H Magnesium 2.0 Total Bilirubin 0.4 AST 85 H ALT 153 H Alkaline Phosphatase 91 Total Protein 8.6 H Albumin 4.4 Active Medications Generic Name Dose Route Start Last Admin Trade Name Sulaiman PRN Reason Stop Dose Admin Folic Acid 1 mg 02/07/20 10:00 02/09/20 09:27 Folic Acid - PO 1 mg DAILY JUNITO Administration Melatonin 5 mg 02/07/20 21:00 02/08/20 21:45 Melatonin PO 5 mg DAILY@2100 JUNITO Administration Multivitamins/Minerals/Vitamin C 1 tab 02/07/20 10:00 02/09/20 09:27 Tab-A-Vit - PO 1 tab DAILY JUNITO Administration Thiamine HCl 100 mg 02/07/20 10:00 02/09/20 09:27 Vitamin B1 - PO 100 mg DAILY JUNITO Administration ASSESSMENT/PLAN: Problem List - Problems (1) Alcoholic pancreatitis Assessment/Plan: tolerating diet, no abdominal pain or discomfort. GI following, notes reviewed and appreciated. on low salt fat diet Protonix stopped for elevated LFTs LFTs improving daily - will need outpatient follow up to monitor closely. patient will be sent referral to [facility] for new PCP. Code(s): K85.20 - ALCOHOL INDUCED ACUTE PANCREATITIS WITHOUT NECROSIS OR INFCT Qualifiers: Chronicity: acute Acute pancreatitis complication: no infection or necrosis Qualified Code(s): K85.20 - Alcohol induced acute pancreatitis without necrosis or infection (2) Depression Assessment/Plan: on no home medications. Code(s): F32.9 - MAJOR DEPRESSIVE DISORDER, SINGLE EPISODE, UNSPECIFIED (3) Severe malnutrition Assessment/Plan: appetite improving long standing etoh use since age of 17 tolerating low salt diet RD following Code(s): E43 - UNSPECIFIED SEVERE PROTEIN-CALORIE MALNUTRITION (4) Transaminitis Assessment/Plan: improving daily. patient to follow up with [facility] outpatient post hospital. He will be moving to [place] and will need to have a PCP set up there. He will be living with his brother. Code(s): R74.0 - NONSPEC ELEV OF LEVELS OF TRANSAMNS & LACTIC ACID DEHYDRGNSE (5) Hypertension Assessment/Plan: bp stable Code(s): I10 - ESSENTIAL (PRIMARY) HYPERTENSION Qualifiers: Hypertension type: unspecified Qualified Code(s): I10 - Essential (primary) hypertension (6) Anemia Assessment/Plan: iron profile reviewed no overt signs of bleeding anemia likely from long standing etoh use. spoke to hematology and anemia likely 2/2 from chronic etoh use and splenomaly. patient to f/u outpatient. stool occult blood negative Code(s): D64.9 - ANEMIA, UNSPECIFIED (7) Prophylactic measure Assessment/Plan: ambulation Code(s): Z29.9 - ENCOUNTER FOR PROPHYLACTIC MEASURES, UNSPECIFIED (8) Alcohol dependence with withdrawal, unspecified Assessment/Plan: completed Ativan protocol. no signs of withdrawal. Code(s): F10.239 - ALCOHOL DEPENDENCE WITH WITHDRAWAL, UNSPECIFIED Qualifiers: Complication of substance-induced condition: with unspecified complication Qualified Code(s): F10.239 - Alcohol dependence with withdrawal, unspecified Visit type - Emergency Visit Emergency Visit: Yes ED Registration Date: 01/31/20 Care time: The patient presented to the Emergency Department on the above date and was hospitalized for further evaluation of their emergent condition. - New Patient This patient is new to me today: No - Critical Care Critical Care patient: No - Discharge Referral Referred to [facility] No
[2020-02-09 11:23] LABS: BASO % 1.3 % (0-2.0); EOS % 3.5 % (0-4.5); HEMATOCRIT 29.3 % (35.4-49); HEMOGLOBIN 9.8 GM/dL (11.7-16.9); LYMPH % 38.6 % (8-40); MCH 31.1 pg (25.7-33.7); MCHC 33.5 g/dl (32.0-35.9); MEAN CELL VOLUME 92.9 fl (80-96); MEAN PLT VOLUME 8.4 fl (7.5-11.1); MONO % 23.9 % (3.8-10.2); NEUT % 32.7 % (42.8-82.8); PLATELET COUNT 241 K/MM3 (134-434); RBC 3.16 M/mm3 (4.00-5.60); RDW 17.5 % (11.9-15.9); WHITE BLOOD COUNT 3.2 K/mm3 (4.0-10.0)
[2020-02-09 11:50] LABS: BILIRUBIN,TOTAL 0.6 mg/dL (0.2-1); BLOOD UREA NITROGEN 13.1 mg/dL (7-18); CALCIUM 9.3 mg/dL (8.5-10.1); CREATININE 0.9 mg/dL (0.55-1.3); TOT PROT 7.7 g/dl (6.4-8.2)
--- NOTE | 2020-02-09 12:02 | CON.HO ---
Consult Consult Specialty:: Hematology Reason for Consultation:: Abnormal CBC - History of Present Illness History of Present Illness: 29 y/o male with HTN, depression, ETOH use disorder with hx of seizure (1 month ago), and pancreatitis (2 months ago) who was sent from [facility] (prior to admission) for evaluation of abdominal pain. Pt drinks 2 pints of liquor a day. His last drink was a day and a half ago. He began drinking at 17. He had a seizure about 1 month ago when trying to detox on his own at home. One month prior, he went to detox but started drinking again right after he left. Pt also endorses regular marijuana use. He denies tobacco or other drug use. He plans to move to [place] to avoid "influences" in his [facility] and recover there. HIs plt iggy fomr 101 on 02/03 to 204 and WBC went from 4 to 3.6. Hb up fomr 9.7 to 10.2. FOBT x1 was negative. ANC 1.4, Cr 1. - Alcohol/Substance Use Hx Alcohol Use: Yes - Smoking History Smoking history: Current every day smoker Have you smoked in the past 12 months: No Home Medications - Allergies Allergies/Adverse Reactions: Allergies Allergy/AdvReac Type Severity Reaction Status Date / Time house dust mite Allergy Mild Itching Verified 01/30/20 23:23 tree and shrub pollen Allergy Mild Itching Verified 01/30/20 23:23 bee pollen Allergy Verified 01/30/20 23:23 pollen extracts Allergy Verified 01/30/20 23:23 - Home Medications Home Medications: Ambulatory Orders Folic Acid - 1 mg PO DAILY tablet 02/09/20 Melatonin 5 mg PO DAILY@2100 tab 02/09/20 Multivitamins [Multivit ([facility] Formulary)] 1 tab PO DAILY tab 02/09/20 Thiamine HCl [Vitamin B1 -] 100 mg PO DAILY tablet 02/09/20 Physical Exam Vital Signs: Vital Signs Temperature 98.6 F 02/09/20 10:00 Pulse Rate 74 02/09/20 10:00 Respiratory Rate 18 02/09/20 10:00 Blood Pressure 117/66 02/09/20 10:00 O2 Sat by Pulse Oximetry (%) 99 02/09/20 09:00 Gastrointestinal: Yes: Hepatomegaly, Splenomegaly (I palpate the spleen 1 cm blow CMargin) Labs: CBC, BMP 02/09/20 10:15 02/09/20 10:15 Assessment/Plan Pancytopenia is most likely due to palpable splenomegaly. i explained to him that liver damage causes enlarged spleen and makes it appear like low blood c ounts in the periphery. He is committed to stopping drinking and moving forward in another directon in [place]. Recommend that he be followed, and hopedully CBC findings will reverse in this young man.
[2020-02-09 12:43] LABS: ANISOCYTOSIS 2+; MACROCYTOSIS 0; PLATELET ESTIMATE NORMAL; TEAR DROP CELLS 1+
--- NOTE | 2020-02-09 14:35 | DS ---
Physical Exam: SUBJECTIVE: Patient seen and examined Follow up: Patient is willing to go to [facility] for a follow up visit post discharge. He does not want to get a PCP in [place] as he plans to move to [place] with his brother after he completes rehab at [facility]. Patient has been accepted back to [facility] by Dr. Kathie Rowland as of 02/09/2020 so long as covid is negative (pending). antibody test is also pending but does not have to waiting for results of antibody testing prior to going to [facility]. Patient has a follow up appointment as follows: Dr. Lira. Reason for visit: post hospital visit/monitor liver function Date/time: February 23: 11:15a.m. Patient to bring ID card, insurance card. -------- Patient is a 29 year old male with a past medical history of hypertension, depression, ETOH abuse with hx of seizure (1 month ago), and pancreatitis (2 months ago) who was sent from [facility] for evaluation of abdominal pain. CT abdomen shows mesenteric infiltration at pancreatic tail suggestive of acute pancreatitis. Patient medically managed with IVF, Protonix and bowel rest. He improved clinically and diet has been upgraded which he is tolerating. No further abdominal pain/nausea or vomiting. He denies any further GI symptoms. on 02/04/2020, LFTs began to trend up and GI was reconsulted. Protonix was discontinued, and hepatitis serologies were negative. CPK normal. His LFTs are now trending down and patient has been set up with a follow up appt for close monitoring. covid status: serology negative as of 01/30/2020, repeating serology and antibodies Vital Signs Period Temp Pulse Resp BP Sys/[place] Pulse Ox Last 24 Hr 98 F-98.7 F 68-87 18-18 98-129/57-77 99-100 PHYSICAL EXAM GENERAL: The patient is awake, alert, and fully oriented, in no acute distress. HEAD: Normal with no signs of trauma. EYES: PERRL, extraocular movements intact, sclera anicteric, conjunctiva clear. No ptosis. ENT: Ears normal, nares patent, oropharynx clear without exudates NECK: Trachea midline, full range of motion, supple. LUNGS: Breath sounds equal, clear to auscultation bilaterally HEART: Regular rate and rhythm ABDOMEN: Soft, nontender, nondistended, normoactive bowel sounds EXTREMITIES: no edema. NEUROLOGICAL: Normal speech, gait steady LABS Laboratory Results - last 24 hr 02/09/20 02/09/20 10:15 10:15 WBC 3.2 L RBC 3.16 L Hgb 9.8 L Hct 29.3 L MCV 92.9 MCH 31.1 MCHC 33.5 RDW 17.5 H Plt Count 241 MPV 8.4 Absolute Neuts (auto) 1.1 L Neutrophils % 32.7 L Neutrophils % (Manual) 34.7 L D Band Neutrophils % 1.0 Lymphocytes % 38.6 Lymphocytes % (Manual) 40.8 H Monocytes % 23.9 H Monocytes % (Manual) 17 H Eosinophils % 3.5 Eosinophils % (Manual) 4.1 Basophils % 1.3 Basophils % (Manual) 1.0 Myelocytes % (Man) 1 D Promyelocytes % (Man) 0 Blast Cells % (Manual) 0 Nucleated RBC % 0 Metamyelocytes 0 Hypochromia 0 Platelet Estimate Normal Platelet Comment Present Polychromasia 0 Poikilocytosis 1+ Basophilic Stippling 1+ Anisocytosis 2+ Microcytosis 1+ Macrocytosis 0 Spherocytes 1+ Tear Drop Cells 1+ Stomatocytes 1+ Sodium 139 Potassium 4.0 Chloride 103 Carbon Dioxide 30 Anion Gap 7 L BUN 13.1 Creatinine 0.9 Est GFR (CKD-EPI)AfAm 135.19 Est GFR (CKD-EPI)NonAf 116.64 Random Glucose 113 H Calcium 9.3 Magnesium 2.0 Total Bilirubin 0.6 AST 62 H ALT 126 H Alkaline Phosphatase 80 Total Protein 7.7 Albumin 4.0 HOSPITAL COURSE: Date of Admission:01/31/20 Date of Discharge: 02/09/20 Minutes to complete discharge: 45 Discharge Summary Problems reviewed: Yes Reason For Visit: ALCOHOL DEPENDENCE WITH WITHDRAWAL, PANCREATITIS Current Active Problems Abnormal complete blood count (Acute) Abnormal liver function tests (Acute) Alcoholic pancreatitis (Acute) Anemia (Acute) Depression (Acute) Prophylactic measure (Acute) Severe malnutrition (Acute) Smoking (Acute) Transaminitis (Acute) Pancreatitis (Chronic) Condition: Stable - Instructions Diet, Activity, Other Instructions: Mr. Jose: You will be discharged to [facility] for rehab. It is important that you have close monitoring of your live function test. You currently do not have a PCP, therefore we have assigned one for you as follows: Follow up appointment as follows: Dr. Lira. Reason for visit: post hospital visit/Monitor liver function Date: February 23: 11:15a.m. Patient to bring ID card, insurance card. Thank you for allowing us to care for you. Referrals: [facility] [place] [facility] [Provider Group] (Dr. Lira. Monitor liver function Date: February 23: 11:15a.m. Please bring your ID, insurance card. ) Disposition: PENITENTIARY FACILITY - Home Medications Comprehensive Discharge Medication List: Ambulatory Orders Folic Acid - 1 mg PO DAILY tablet 02/09/20 Melatonin 5 mg PO DAILY@2100 tab 02/09/20 Multivitamins [Multivit ([facility] Formulary)] 1 tab PO DAILY tab 02/09/20 Thiamine HCl [Vitamin B1 -] 100 mg PO DAILY tablet 02/09/20 Problem List - Problems (1) Alcoholic pancreatitis Assessment/Plan: tolerating diet, no abdominal pain or discomfort. GI following, notes reviewed and appreciated. on low salt fat diet Protonix stopped for elevated LFTs LFTs improving daily - will need outpatient follow up to monitor closely. patient will be sent referral to [facility] for new PCP. Code(s): K85.20 - ALCOHOL INDUCED ACUTE PANCREATITIS WITHOUT NECROSIS OR INFCT Qualifiers: Chronicity: acute Acute pancreatitis complication: no infection or necrosis Qualified Code(s): K85.20 - Alcohol induced acute pancreatitis without necrosis or infection (2) Depression Assessment/Plan: on no home medications. Code(s): F32.9 - MAJOR DEPRESSIVE DISORDER, SINGLE EPISODE, UNSPECIFIED (3) Severe malnutrition Assessment/Plan: appetite improving long standing etoh use since age of 17 tolerating low salt diet RD following Code(s): E43 - UNSPECIFIED SEVERE PROTEIN-CALORIE MALNUTRITION (4) Transaminitis Assessment/Plan: improving daily. patient to follow up with [facility] outpatient post hospital. He will be moving to [place] and will need to have a PCP set up there. He will be living with his brother. Code(s): R74.0 - NONSPEC ELEV OF LEVELS OF TRANSAMNS & LACTIC ACID DEHYDRGNSE (5) Hypertension Assessment/Plan: bp stable Code(s): I10 - ESSENTIAL (PRIMARY) HYPERTENSION Qualifiers: Hypertension type: unspecified Qualified Code(s): I10 - Essential (primary) hypertension (6) Anemia Assessment/Plan: iron profile reviewed no overt signs of bleeding anemia likely from long standing etoh use. spoke to hematology and anemia likely 2/2 from chronic etoh use and splenomaly. patient to f/u outpatient. stool occult blood negative Code(s): D64.9 - ANEMIA, UNSPECIFIED (7) Prophylactic measure Assessment/Plan: ambulation Code(s): Z29.9 - ENCOUNTER FOR PROPHYLACTIC MEASURES, UNSPECIFIED (8) Alcohol dependence with withdrawal, unspecified Assessment/Plan: completed Ativan protocol. no signs of withdrawal. Code(s): F10.239 - ALCOHOL DEPENDENCE WITH WITHDRAWAL, UNSPECIFIED Qualifiers: Complication of substance-induced condition: with unspecified complication Qualified Code(s): F10.239 - Alcohol dependence with withdrawal, unspecified This patient is new to me today: No Emergency Visit: Yes ED Registration Date: 01/31/20 Care time: The patient presented to the Emergency Department on the above date and was hospitalized for further evaluation of their emergent condition. Critical Care patient: No - Discharge Referral Referred to [facility] No
[2020-02-09] MEDS: MELATONIN 5 MG TABLETS PO SCH (21:45)
--- NOTE | 2020-02-10 08:39 | PN ---
Progress Note, Physician Chief Complaint: Seen and examined . Pending bed for [facility] admission for rehab History of Present Illness: Pt is a 29 y/o male with HTN, depression, ETOH use disorder with hx of seizure (1 month ago), and pancreatitis (2 months ago) who was sent from [facility] (prior to admission) for evaluation of abdominal pain. CT abdomen shows mesenteric infiltration at pancreatic tail suggestive of acute pancreatitis. - Current Medication List Current Medications: Active Medications Folic Acid (Folic Acid -) 1 mg PO DAILY [facility] Last Admin: 02/09/20 09:27 Dose: 1 mg Documented by: Melatonin (Melatonin) 5 mg PO DAILY@2100 [facility] Last Admin: 02/09/20 21:45 Dose: 5 mg Documented by: Multivitamins/Minerals/Vitamin C (Tab-A-Vit -) 1 tab PO DAILY [facility] Last Admin: 02/09/20 09:27 Dose: 1 tab Documented by: Thiamine HCl (Vitamin B1 -) 100 mg PO DAILY [facility] Last Admin: 02/09/20 09:27 Dose: 100 mg Documented by: - Objective Vital Signs: Vital Signs Temperature 98.1 F 02/10/20 08:32 Pulse Rate 98 H 02/10/20 08:32 Respiratory Rate 18 02/10/20 08:32 Blood Pressure 133/73 02/10/20 08:32 O2 Sat by Pulse Oximetry (%) 99 02/09/20 09:00 Constitutional: Yes: Well Nourished, No Distress, Calm Eyes: Yes: WNL, Conjunctiva Clear HENT: Yes: WNL, Atraumatic, Normocephalic Neck: Yes: WNL, Supple, Trachea Midline Cardiovascular: Yes: WNL, Regular Rate and Rhythm Respiratory: Yes: WNL, Regular, CTA Bilaterally Gastrointestinal: Yes: WNL, Normal Bowel Sounds ...Rectal Exam: Yes: Deferred Genitourinary: Yes: WNL Breast(s): Yes: WNL Musculoskeletal: Yes: WNL Extremities: Yes: WNL Edema: No Peripheral Pulses WNL: Yes Peripheral Pulses: Left Radial: 2+, Right Radial: 2+, Left Doralis Pedis: 2+, Right Dorsalis Pedis: 2+, Left Femoral: 2+, Right Femoral: 2+ Integumentary: Yes: Tattoos, Other (multiple facial piercings) Neurological: Yes: WNL, Alert, Oriented ...Motor Strength: WNL Psychiatric: Yes: WNL Labs: CBC, BMP 02/09/20 10:15 02/09/20 10:15 INR, PTT INR 1.07 (0.83-1.09) 01/31/20 00:00 Problem List - Problems (1) Depression Assessment/Plan: hx of on no medications Code(s): F32.9 - MAJOR DEPRESSIVE DISORDER, SINGLE EPISODE, UNSPECIFIED (2) Prophylactic measure Assessment/Plan: FEN Fluids:adequate po intaker Electrolytes: monitor & replete as needed Nutrition: low fat DVT ambulatory Dispo Maintain as inpatient full code discharge planning back to [facility] Code(s): Z29.9 - ENCOUNTER FOR PROPHYLACTIC MEASURES, UNSPECIFIED (3) Transaminitis Assessment/Plan: LFTs elevated most likely secondary to ETOH use hepatatis panel negative avoid hepatotoxic agents GI following to follow up with [facility] outpatient post hospital. Code(s): R74.0 - NONSPEC ELEV OF LEVELS OF TRANSAMNS & LACTIC ACID DEHYDRGNSE (4) Alcohol dependence with withdrawal, unspecified Assessment/Plan: completed alcohol detox protocol pending rehab bed at [facility] counseled on cessation Code(s): F10.239 - ALCOHOL DEPENDENCE WITH WITHDRAWAL, UNSPECIFIED Qualifiers: Complication of substance-induced condition: with unspecified complication Qualified Code(s): F10.239 - Alcohol dependence with withdrawal, unspecified (5) Alcohol related seizure Assessment/Plan: sz last year, on no meds no seizure activity noted fall precautions Code(s): R56.9 - UNSPECIFIED CONVULSIONS (6) Pancreatitis Assessment/Plan: tolerating diet resolved Code(s): K85.90 - ACUTE PANCREATITIS WITHOUT NECROSIS OR INFECTION, UNSP Qualifiers: Pancreatitis type: alcohol induced (7) Severe malnutrition Assessment/Plan: as evidence by BMI 16.5 muscle amd temporal waisting long standing etoh use tolerating diet Code(s): E43 - UNSPECIFIED SEVERE PROTEIN-CALORIE MALNUTRITION (8) Smoking Assessment/Plan: active smoker offered nicotine patch-declined counseled on cessation Code(s): F17.200 - NICOTINE DEPENDENCE, UNSPECIFIED, UNCOMPLICATED (9) Anemia Assessment/Plan: rashid profile reviewed no overt signs of bleeding anemia likely from long standing etoh use. to f/u outpatient. stool occult blood negative Code(s): D64.9 - ANEMIA, UNSPECIFIED Visit type - Emergency Visit Emergency Visit: Yes ED Registration Date: 01/31/20 Care time: The patient presented to the Emergency Department on the above date and was hospitalized for further evaluation of their emergent condition. - New Patient This patient is new to me today: No - Critical Care Critical Care patient: No - Discharge Referral Referred to [facility] No
[2020-02-10] MEDS: MULTIVITAMINS (DAILY MVI) TABLET (FP) PO SCH (09:23)
[2020-02-10] MEDS: FOLIC ACID 1 MG TABLET (FP) PO SCH (09:23)
[2020-02-10] MEDS: THIAMINE HCL 100 MG TABLET (FP) PO SCH (09:23)
[2020-02-10 12:33] LABS: BASO % 1.1 % (0-2.0); EOS % 2.7 % (0-4.5); HEMATOCRIT 31.3 % (35.4-49); HEMOGLOBIN 10.6 GM/dL (11.7-16.9); LYMPH % 36.6 % (8-40); MCHC 33.9 g/dl (32.0-35.9); MEAN CELL VOLUME 94.4 fl (80-96); MEAN PLT VOLUME 8.4 fl (7.5-11.1); MONO % 22.8 % (3.8-10.2); NEUT % 36.8 % (42.8-82.8); PLATELET COUNT 299 K/MM3 (134-434); RBC 3.31 M/mm3 (4.00-5.60); RDW 17.4 % (11.9-15.9)
[2020-02-10 12:58] LABS: ALBUMIN 4.3 g/dl (3.4-5.0); BILIRUBIN,TOTAL 0.4 mg/dL (0.2-1); BLOOD UREA NITROGEN 12.5 mg/dL (7-18); CALCIUM 9.7 mg/dL (8.5-10.1); CREATININE 1.1 mg/dL (0.55-1.3); MAGNESIUM 1.9 mg/dL (1.8-2.4); POTASSIUM 3.9 mmol/L (3.5-5.1); TOT PROT 8.5 g/dl (6.4-8.2)
[2020-02-10 13:30] LABS: ANISOCYTOSIS 0; MACROCYTOSIS 0; PLATELET ESTIMATE NORMAL
[2020-02-10 14:48] VITALS: BP 113/71; PULSE 79; TEMP 97.6
== END 2020-02-10 15:35 | disposition home or self-care (01) | DRG 282 ==
LOC: JER 23:19 → JERBED 01-31 00:21 → J7W 01-31 04:09 → J4S 01-31 06:13 → J4W 02-05 16:15 → J6S 02-06 15:28
PROVIDERS: ADMIT Internal Medicine; ATTEND Nurse Practitioner Acute Care
PROC: HZ2ZZZZ Detoxification Services for Substance Abuse Treatment (ICD-10-PCS; principal; 2020-01-30)
DX: K85.20 Alcohol induced acute pancreatitis without necrosis or infection (principal); F10.239 Alcohol dependence with withdrawal, unspecified; E87.6 Hypokalemia; E43 Unspecified severe protein-calorie malnutrition; D50.0 Iron deficiency anemia secondary to blood loss (chronic); R64 Cachexia; Z68.1 Body mass index [BMI] 19.9 or less, adult; F17.210 Nicotine dependence, cigarettes, uncomplicated; R62.7 Adult failure to thrive; F32.9 Major depressive disorder, single episode, unspecified; R74.0 Nonspecific elevation of levels of transaminase and lactic acid dehydrogenase [LDH]; R94.5 Abnormal results of liver function studies; R79.89 Other specified abnormal findings of blood chemistry; D61.818 Other pancytopenia; R16.1 Splenomegaly, not elsewhere classified; R56.9 Unspecified convulsions
CPT/HCPCS: 36415; 71045-TC-FY; 74177-TC; 76705-TC; 80048; 80053; 80307; 82150; 82272; 82550; 82607; 82728; 82746; 83540; 83550; 83690; 83735; 84100; 84478; 85025; 85610; 85730; 86704; 86706; 86707; 86708; 86709; 86769; 87340; 87497; 87522; 87799; 93005; 93010; J0131; U0003

== ENCOUNTER 2020-02-10 16:03 | Inpatient (IN) | payer OTHER ==
--- NOTE | 2020-02-10 16:42 | BHS.RME ---
Substance Use & Tx History - Last Treatment Date of last treatment: 01/31/2020 Where was last treatment: Med/Surg Physical/Psych/Mental Status - Behavior Eye Contact: Normal - Cooperativeness Cooperativeness: Cooperative - Thinking Thought Processes: Logical Thought content: Future oriented - Physical Health Problems Is patient presently having any pain?: No Does patient presently have any injuries (include location): No Does patient currently have a fever: No
--- NOTE | 2020-02-10 16:44 | HP ---
CIWA Score - Admission Criteria [facility] Guidelines: Admission for Medically Managed Detox: Requires at least one of the followin. CIWA greater than 12 2. Seizures within the past 24 hours 3. Delirium tremens within the past 24 hours 4. Hallucinations within the past 24 hours 5. Acute intervention needed for co occurring medical disorder 6. Acute intervention needed for co occurring psychiatric disorder 7. Severe withdrawal that cannot be handled at a lower level of care (continued vomiting, continued diarrhea, abnormal vital signs) requiring intravenous medication and/or fluids 8. Admitting History and Physical - Smoking History Smoking history: Current every day smoker Have you smoked in the past 12 months: No - Alcohol/Substance Use Hx Alcohol Use: Yes Admission ROS S - HPI Allergies/Adverse Reactions: Allergies Allergy/AdvReac Type Severity Reaction Status Date / Time house dust mite Allergy Mild Itching Verified 01/30/20 23:23 tree and shrub pollen Allergy Mild Itching Verified 01/30/20 23:23 bee pollen Allergy Verified 01/30/20 23:23 pollen extracts Allergy Verified 01/30/20 23:23 History of Present Illness: pt returns for rehab after hospitalization 01/31/2020-02/10/2020 for acute pancreatitis . denies complaints at this time " I feel great " prior use of etoh . Detox completed . Exam Limitations: No Limitations - Review of Systems Constitutional: No Symptoms Reported EENT: reports: No Symptoms Reported Respiratory: reports: No Symptoms reported Cardiac: reports: No Symptoms Reported GI: reports: No Symptoms Reported : reports: No Symptoms Reported Musculoskeletal: reports: No Symptoms Reported Integumentary: reports: No Symptoms Reported Neuro: reports: No Symptoms reported Endocrine: reports: No Symptoms Reported Psychiatric: reports: Orientated x3 Patient History - Patient Medical History Hx Anemia: No Hx Asthma: No Hx Chronic Obstructive Pulmonary Disease (COPD): No Hx Cancer: No Hx Cardiac Disorders: No Hx Congestive Heart Failure: No Hx Hypertension: Yes (Not on medication) Hx Hypercholesterolemia: No Hx Pacemaker: No HX Cerebrovascular Accident: No Hx Seizures: Yes Hx Dementia: No Hx Diabetes: No Hx Gastrointestinal Disorders: Yes (Pancreatitis) Hx Liver Disease: No Hx Genitourinary Disorders: No Hx Sexually Transmitted Disorders: No Hx Renal Disease (ESRD): No Hx Thyroid Disease: No Hx Human Immunodeficiency Virus (HIV): No (Negative 2019) Hx Hepatitis C: No Hx Depression: Yes Hx Suicide Attempt: No (Denies suicidal ideation at this time) Hx Bipolar Disorder: No Hx Schizophrenia: No - Patient Surgical History Past Surgical History: No Hx Neurologic Surgery: No Hx Cataract Extraction: No Hx Cardiac Surgery: No Hx Lung Surgery: No Hx Breast Surgery: No Hx Breast Biopsy: No Hx Abdominal Surgery: No Hx Appendectomy: No Hx Cholecystectomy: No Hx Genitourinary Surgery: No Hx Section: No Hx Orthopedic Surgery: No Anesthesia Reaction: No - Smoking Cessation Smoking history: Former smoker Have you smoked in the past 12 months: No Hx Chewing Tobacco Use: No Initiated information on smoking cessation: No Admission Physical Exam [facility] - Physical General Appearance: Yes: No Apparent Distress HEENTM: Yes: EOMI, Hearing grossly Normal, Normocephalic, Normal Voice Respiratory: Yes: Chest Non-Tender, Lungs Clear, Normal Breath Sounds, No Respiratory Distress, No Accessory Muscle Use Neck: Yes: No masses,lesions,Nodules, Trachea in good position Cardiology: Yes: Regular Rhythm, Regular Rate, S1, S2 Abdominal: Yes: Non Tender, Soft Back: Yes: Normal Inspection Musculoskeletal: Yes: Gait Steady Extremities: Yes: Normal Capillary Refill, Normal Range of Motion, Non-Tender Neurological: Yes: Fully Oriented, Alert, Motor Strength 5/5, Normal Mood/Affect Integumentary: Yes: Warm - Diagnostic (1) Alcohol dependence in early full remission Current Visit: Yes Status: Acute Breathalyzer - Breathalyzer Breathalyzer: 0 Urine Drug Screen - Test Device Lot number: [id number] Expiration date: 04/12/21 - Control Is test valid?: Yes - Results Drug screen NEGATIVE: No Urine drug screen results: BZO-Benzodiazepines Inpatient Rehab Admission - Rehab Decision to Admit Inpatient rehab admission?: Yes - Initial Determination Are CD services needed?: Yes Free of communicable disease: Yes Not in need of hospitalization: Yes - Rehab Admission Criteria Previous failed treatment: No Poor recovery environment: No Comorbidities: No Lacks judgement: Yes Patient is meeting Inpatient Rehab admission criteria:: Yes
[2020-02-10] MEDS ORDERED: guaiFENesin 200 MG/10 ML 10 ML UNIT-DOSE CUPS PO PRN (16:47)
[2020-02-10] MEDS ORDERED: IBUPROFEN 400 MG TABLET (FP) PO PRN (16:47)
[2020-02-10] MEDS ORDERED: P-EPHED 60MG/TRIPROLIDI 2.5MG TABLET PO PRN (16:47)
[2020-02-10] MEDS ORDERED: MAG HYDROX/AL HYDROX/SIMETH 30 ML UNIT-DOSE CUP PO PRN (16:47)
[2020-02-10] MEDS ORDERED: MAGNESIUM CITRATE 300 ML BOTTLE PO PRN (16:47)
[2020-02-10] MEDS ORDERED: LOPERAMIDE HCL 2 MG CAPSULE PO PRN (16:47)
[2020-02-10] MEDS ORDERED: MAGNESIUM HYDROX 2400MG/30ML ORAL SUSPENSION 30 ML CUP PO PRN (16:47)
[2020-02-10 18:21] VITALS: BMI 18.3
[2020-02-10] MEDS ORDERED: TUBERCULIN PPD 5 TU/0.1ML VIAL ID ONE (18:54)
[2020-02-10] MEDS: MELATONIN 5 MG TABLETS PO SCH (21:29)
[2020-02-10] MEDS: THIAMINE HCL 100 MG TABLET (FP) PO SCH (21:29)
[2020-02-10] MEDS: FERROUS SO4 325 MG TABLET (FP) PO SCH (21:31)
[2020-02-10] MEDS: hydrOXYzine PAMOATE 25 MG CAPSULE (FP) PO PRN (21:31)
[2020-02-11 01:54] LABS: PH,URINE 5.5 (5.0-8.0); URINE APPEARANCE CLEAR; URINE BILIRUBIN NEGATIVE (NEGATIVE); URINE COLOR YELLOW; URINE GLUCOSE (UA) NEGATIVE (NEGATIVE); URINE KETONE NEGATIVE (NEGATIVE); URINE LEUK ESTERASE NEGATIVE (NEGATIVE); URINE NITRITE NEGATIVE (NEGATIVE); URINE PROTEIN NEGATIVE (NEGATIVE); URINE UROBILINOGEN 0.2 mg/dL (0.2-1.0)
[2020-02-11] MEDS ORDERED: PT OWN MED DRAWER 7, Y5N ONE ×2 (08:57→10:48)
[2020-02-11] MEDS ORDERED: THIAMINE HCL 100 MG TABLET (FP) PO SCH (10:00)
[2020-02-11] MEDS: FOLIC ACID 1 MG TABLET (FP) PO SCH (10:28)
[2020-02-11] MEDS: MULTIVITAMINS (DAILY MVI) TABLET (FP) PO SCH (10:28)
[2020-02-11] MEDS: FERROUS SO4 325 MG TABLET (FP) PO SCH (17:40)
[2020-02-11] MEDS: THIAMINE HCL 100 MG TABLET (FP) PO SCH (21:08)
[2020-02-11] MEDS: MELATONIN 5 MG TABLETS PO SCH (21:08)
[2020-02-12] MEDS: FOLIC ACID 1 MG TABLET (FP) PO SCH (09:47)
[2020-02-12] MEDS: MULTIVITAMINS (DAILY MVI) TABLET (FP) PO SCH (09:48)
[2020-02-12] MEDS ORDERED: LACTULOSE 20 GM/30 ML UDC (FOR ORAL USE ONLY) PO PRN (14:38)
--- NOTE | 2020-02-12 14:40 | PN ---
S Progress Note Note: Patient with elevated ammonia level. Started on lactulose. Patient agreed. Laboratory Last Values Sickle Cell Screen Negative (NEGATIVE) 02/10/20 07:50 Ammonia 68.40 umol/L (11-32) H 02/12/20 08:30 Urine Color Yellow 02/10/20 22:50 Urine Appearance Clear 02/10/20 22:50 Urine pH 5.5 (5.0-8.0) 02/10/20 22:50 Ur Specific [place] 1.015 (1.010-1.035) 02/10/20 22:50 Urine Protein Negative (NEGATIVE) 02/10/20 22:50 Urine Glucose (UA) Negative (NEGATIVE) 02/10/20 22:50 Urine Ketones Negative (NEGATIVE) 02/10/20 22:50 Urine Blood Negative (NEGATIVE) 02/10/20 22:50 Urine Nitrite Negative (NEGATIVE) 02/10/20 22:50 Urine Bilirubin Negative (NEGATIVE) 02/10/20 22:50 Urine Urobilinogen 0.2 mg/dL (0.2-1.0) 02/10/20 22:50 Ur Leukocyte Esterase Negative (NEGATIVE) 02/10/20 22:50 Syphilis Serology Non-reactive (NONREACTIVE) 02/10/20 07:50
[2020-02-12] MEDS: FERROUS SO4 325 MG TABLET (FP) PO SCH (17:35)
[2020-02-12] MEDS: LACTULOSE 20 GM/30 ML UDC (FOR ORAL USE ONLY) PO SCH (21:34)
[2020-02-12] MEDS: MELATONIN 5 MG TABLETS PO SCH (21:34)
[2020-02-12] MEDS: THIAMINE HCL 100 MG TABLET (FP) PO SCH (21:34)
[2020-02-12] MEDS: hydrOXYzine PAMOATE 25 MG CAPSULE (FP) PO PRN (21:35)
[2020-02-13] MEDS: LACTULOSE 20 GM/30 ML UDC (FOR ORAL USE ONLY) PO SCH ×3 (06:54→21:47)
[2020-02-13] MEDS: FOLIC ACID 1 MG TABLET (FP) PO SCH (09:43)
[2020-02-13] MEDS: MULTIVITAMINS (DAILY MVI) TABLET (FP) PO SCH (09:43)
--- NOTE | 2020-02-13 10:03 | PN ---
[facility] Progress Note Note: Vital Signs Temperature 97.7 F 02/13/20 06:04 Pulse Rate 63 02/13/20 06:04 Respiratory Rate 18 02/13/20 06:04 Blood Pressure 126/86 02/13/20 06:04 O2 Sat by Pulse Oximetry (%) 100 02/13/20 06:04 Laboratory Last Values Sickle Cell Screen Negative (NEGATIVE) 02/10/20 07:50 Ammonia 68.40 umol/L (11-32) H 02/12/20 08:30 Urine Color Yellow 02/10/20 22:50 Urine Appearance Clear 02/10/20 22:50 Urine pH 5.5 (5.0-8.0) 02/10/20 22:50 Ur Specific [place] 1.015 (1.010-1.035) 02/10/20 22:50 Urine Protein Negative (NEGATIVE) 02/10/20 22:50 Urine Glucose (UA) Negative (NEGATIVE) 02/10/20 22:50 Urine Ketones Negative (NEGATIVE) 02/10/20 22:50 Urine Blood Negative (NEGATIVE) 02/10/20 22:50 Urine Nitrite Negative (NEGATIVE) 02/10/20 22:50 Urine Bilirubin Negative (NEGATIVE) 02/10/20 22:50 Urine Urobilinogen 0.2 mg/dL (0.2-1.0) 02/10/20 22:50 Ur Leukocyte Esterase Negative (NEGATIVE) 02/10/20 22:50 Syphilis Serology Non-reactive (NONREACTIVE) 02/10/20 07:50 elevated ammonia levels, on Lactulose, repeat levels tomorrow morning. Continue to monitor
[2020-02-13 11:46] LABS: HEMATOCRIT 32.6 % (35.4-49); HEMOGLOBIN 10.8 GM/dL (11.7-16.9); MCH 31.4 pg (25.7-33.7); MCHC 33.2 g/dl (32.0-35.9); MEAN CELL VOLUME 94.6 fl (80-96); MEAN PLT VOLUME 8.9 fl (7.5-11.1); PLATELET COUNT 351 K/MM3 (134-434); RBC 3.45 M/mm3 (4.00-5.60); RDW 17.3 % (11.9-15.9); WHITE BLOOD COUNT 5.7 K/mm3 (4.0-10.0)
[2020-02-13 12:16] LABS: ALBUMIN 4.4 g/dl (3.4-5.0); BILIRUBIN,TOTAL 0.3 mg/dL (0.2-1); BLOOD UREA NITROGEN 10.2 mg/dL (7-18); CALCIUM 10.2 mg/dL (8.5-10.1); CREATININE 0.9 mg/dL (0.55-1.3); POTASSIUM 3.7 mmol/L (3.5-5.1); TOT PROT 8.5 g/dl (6.4-8.2)
[2020-02-13] MEDS: FERROUS SO4 325 MG TABLET (FP) PO SCH (17:43)
[2020-02-13] MEDS: THIAMINE HCL 100 MG TABLET (FP) PO SCH (21:47)
[2020-02-13] MEDS: MELATONIN 5 MG TABLETS PO SCH (21:47)
[2020-02-14] MEDS: LACTULOSE 20 GM/30 ML UDC (FOR ORAL USE ONLY) PO SCH ×3 (06:13→21:14)
[2020-02-14] MEDS: MULTIVITAMINS (DAILY MVI) TABLET (FP) PO SCH (10:11)
[2020-02-14] MEDS: FOLIC ACID 1 MG TABLET (FP) PO SCH (10:11)
--- NOTE | 2020-02-14 15:08 | PN ---
[facility] Progress Note Note: lert,oriented no complaint Vital Signs Temperature 98.0 F 02/14/20 06:12 Pulse Rate 94 H 02/14/20 06:12 Respiratory Rate 19 02/14/20 06:12 Blood Pressure 141/79 02/14/20 06:12 O2 Sat by Pulse Oximetry (%) 100 02/14/20 13:34 Laboratory Last Values WBC 5.7 K/mm3 (4.0-10.0) 02/13/20 07:30 RBC 3.45 M/mm3 (4.00-5.60) L 02/13/20 07:30 Hgb 10.8 GM/dL (11.7-16.9) L 02/13/20 07:30 Hct 32.6 % (35.4-49) L 02/13/20 07:30 MCV 94.6 fl (80-96) 02/13/20 07:30 MCH 31.4 pg (25.7-33.7) 02/13/20 07:30 MCHC 33.2 g/dl (32.0-35.9) 02/13/20 07:30 RDW 17.3 % (11.9-15.9) H 02/13/20 07:30 Plt Count 351 K/MM3 (134-434) 02/13/20 07:30 MPV 8.9 fl (7.5-11.1) 02/13/20 07:30 Sickle Cell Screen Negative (NEGATIVE) 02/10/20 07:50 Sodium 138 mmol/L (136-145) 02/13/20 07:30 Potassium 3.7 mmol/L (3.5-5.1) 02/13/20 07:30 Chloride 104 mmol/L (98-107) 02/13/20 07:30 Carbon Dioxide 27 mmol/L (21-32) 02/13/20 07:30 Anion Gap 7 MMOL/L (8-16) L 02/13/20 07:30 BUN 10.2 mg/dL (7-18) 02/13/20 07:30 Creatinine 0.9 mg/dL (0.55-1.3) 02/13/20 07:30 Est GFR (CKD-EPI)AfAm 135.19 02/13/20 07:30 Est GFR (CKD-EPI)NonAf 116.64 02/13/20 07:30 Random Glucose 91 mg/dL (74-106) 02/13/20 07:30 Calcium 10.2 mg/dL (8.5-10.1) H 02/13/20 07:30 Total Bilirubin 0.3 mg/dL (0.2-1) 02/13/20 07:30 AST 39 U/L (15-37) H 02/13/20 07:30 ALT 88 U/L (13-61) H 02/13/20 07:30 Alkaline Phosphatase 76 U/L (45-117) 02/13/20 07:30 Ammonia 339.30 umol/L (11-32) H 02/14/20 07:40 Total Protein 8.5 g/dl (6.4-8.2) H 02/13/20 07:30 Albumin 4.4 g/dl (3.4-5.0) 02/13/20 07:30 Urine Color Yellow 02/10/20 22:50 Urine Appearance Clear 02/10/20 22:50 Urine pH 5.5 (5.0-8.0) 02/10/20 22:50 Ur Specific [place] 1.015 (1.010-1.035) 02/10/20 22:50 Urine Protein Negative (NEGATIVE) 02/10/20 22:50 Urine Glucose (UA) Negative (NEGATIVE) 02/10/20 22:50 Urine Ketones Negative (NEGATIVE) 02/10/20 22:50 Urine Blood Negative (NEGATIVE) 02/10/20 22:50 Urine Nitrite Negative (NEGATIVE) 02/10/20 22:50 Urine Bilirubin Negative (NEGATIVE) 02/10/20 22:50 Urine Urobilinogen 0.2 mg/dL (0.2-1.0) 02/10/20 22:50 Ur Leukocyte Esterase Negative (NEGATIVE) 02/10/20 22:50 Syphilis Serology Non-reactive (NONREACTIVE) 02/10/20 07:50 ammonia 339.30 treatment close monitoring repeat ammonia level in am continue lactulose 20 grams po tid
[2020-02-14] MEDS: FERROUS SO4 325 MG TABLET (FP) PO SCH (17:40)
[2020-02-14] MEDS: hydrOXYzine PAMOATE 25 MG CAPSULE (FP) PO PRN (21:13)
[2020-02-14] MEDS: THIAMINE HCL 100 MG TABLET (FP) PO SCH (21:13)
[2020-02-14] MEDS: MELATONIN 5 MG TABLETS PO SCH (21:14)
[2020-02-15] MEDS: LACTULOSE 20 GM/30 ML UDC (FOR ORAL USE ONLY) PO SCH ×3 (06:13→21:23)
[2020-02-15] MEDS: FOLIC ACID 1 MG TABLET (FP) PO SCH (10:02)
[2020-02-15] MEDS: MULTIVITAMINS (DAILY MVI) TABLET (FP) PO SCH (10:02)
[2020-02-15] MEDS: FERROUS SO4 325 MG TABLET (FP) PO SCH (17:45)
[2020-02-15] MEDS: hydrOXYzine PAMOATE 25 MG CAPSULE (FP) PO PRN (21:22)
[2020-02-15] MEDS: MELATONIN 5 MG TABLETS PO SCH (21:22)
[2020-02-15] MEDS: THIAMINE HCL 100 MG TABLET (FP) PO SCH (21:22)
[2020-02-16] MEDS: LACTULOSE 20 GM/30 ML UDC (FOR ORAL USE ONLY) PO SCH ×3 (07:29→21:16)
[2020-02-16] MEDS: MULTIVITAMINS (DAILY MVI) TABLET (FP) PO SCH (10:05)
[2020-02-16] MEDS: FOLIC ACID 1 MG TABLET (FP) PO SCH (10:05)
[2020-02-16] MEDS ORDERED: PT OWN MED DRAWER 7, Y5N ONE (10:05)
[2020-02-16] MEDS: FERROUS SO4 325 MG TABLET (FP) PO SCH (17:45)
[2020-02-16] MEDS: hydrOXYzine PAMOATE 25 MG CAPSULE (FP) PO PRN (21:15)
[2020-02-16] MEDS: MELATONIN 5 MG TABLETS PO SCH (21:15)
[2020-02-16] MEDS: THIAMINE HCL 100 MG TABLET (FP) PO SCH (21:15)
[2020-02-17] MEDS: LACTULOSE 20 GM/30 ML UDC (FOR ORAL USE ONLY) PO SCH ×3 (06:36→21:20)
[2020-02-17] MEDS: MULTIVITAMINS (DAILY MVI) TABLET (FP) PO SCH (09:53)
[2020-02-17] MEDS: FOLIC ACID 1 MG TABLET (FP) PO SCH (09:53)
[2020-02-17] MEDS: FERROUS SO4 325 MG TABLET (FP) PO SCH (17:32)
[2020-02-17] MEDS: MELATONIN 5 MG TABLETS PO SCH (21:19)
[2020-02-17] MEDS: THIAMINE HCL 100 MG TABLET (FP) PO SCH (21:19)
[2020-02-17] MEDS: hydrOXYzine PAMOATE 25 MG CAPSULE (FP) PO PRN (21:20)
[2020-02-18] MEDS: LACTULOSE 20 GM/30 ML UDC (FOR ORAL USE ONLY) PO SCH ×3 (07:15→21:31)
[2020-02-18] MEDS: MULTIVITAMINS (DAILY MVI) TABLET (FP) PO SCH (09:30)
[2020-02-18] MEDS: FOLIC ACID 1 MG TABLET (FP) PO SCH (09:30)
--- NOTE | 2020-02-18 15:19 | PN ---
S Progress Note (SOAP) Subjective: patient reporting a rash on his right buttocks. States it started 2 days ago. He self-treated it with alcohol pads, but it increased and remained itchy. Objective: 02/18/20 15:19 General: no apparent distress SKIN: raised patch consisting of flesh colored papules, round,on right buttock Vital Signs Period Temp Pulse Resp BP Sys/Moore Pulse Ox Last 24 Hr 97.9 F 110 18 134/72 97-100 Assessment: Rash 02/18/20 15:20 Plan: triamcilone ordered Advised patient to cleanse with clear, cool water Do not use alcohol pads on area.
[2020-02-18] MEDS: FERROUS SO4 325 MG TABLET (FP) PO SCH (17:32)
[2020-02-18] MEDS: MELATONIN 5 MG TABLETS PO SCH (21:30)
[2020-02-18] MEDS: THIAMINE HCL 100 MG TABLET (FP) PO SCH (21:30)
[2020-02-18] MEDS: TRIAMCINOLONE ACET 0.1% OINT 15 GM TUBE TP SCH (21:31)
[2020-02-18] MEDS: hydrOXYzine PAMOATE 25 MG CAPSULE (FP) PO PRN (21:33)
[2020-02-19] MEDS: LACTULOSE 20 GM/30 ML UDC (FOR ORAL USE ONLY) PO SCH ×3 (06:21→21:26)
[2020-02-19] MEDS: TRIAMCINOLONE ACET 0.1% OINT 15 GM TUBE TP SCH ×2 (09:44→21:27)
[2020-02-19] MEDS: FOLIC ACID 1 MG TABLET (FP) PO SCH (09:44)
[2020-02-19] MEDS: MULTIVITAMINS (DAILY MVI) TABLET (FP) PO SCH (09:44)
--- NOTE | 2020-02-19 14:07 | PN ---
[facility] Progress Note Note: Laboratory Last Values WBC 5.7 K/mm3 (4.0-10.0) 02/13/20 07:30 RBC 3.45 M/mm3 (4.00-5.60) L 02/13/20 07:30 Hgb 10.8 GM/dL (11.7-16.9) L 02/13/20 07:30 Hct 32.6 % (35.4-49) L 02/13/20 07:30 MCV 94.6 fl (80-96) 02/13/20 07:30 MCH 31.4 pg (25.7-33.7) 02/13/20 07:30 MCHC 33.2 g/dl (32.0-35.9) 02/13/20 07:30 RDW 17.3 % (11.9-15.9) H 02/13/20 07:30 Plt Count 351 K/MM3 (134-434) 02/13/20 07:30 MPV 8.9 fl (7.5-11.1) 02/13/20 07:30 Sickle Cell Screen Negative (NEGATIVE) 02/10/20 07:50 Sodium 138 mmol/L (136-145) 02/13/20 07:30 Potassium 3.7 mmol/L (3.5-5.1) 02/13/20 07:30 Chloride 104 mmol/L (98-107) 02/13/20 07:30 Carbon Dioxide 27 mmol/L (21-32) 02/13/20 07:30 Anion Gap 7 MMOL/L (8-16) L 02/13/20 07:30 BUN 10.2 mg/dL (7-18) 02/13/20 07:30 Creatinine 0.9 mg/dL (0.55-1.3) 02/13/20 07:30 Est GFR (CKD-EPI)AfAm 135.19 02/13/20 07:30 Est GFR (CKD-EPI)NonAf 116.64 02/13/20 07:30 Random Glucose 91 mg/dL (74-106) 02/13/20 07:30 Calcium 10.2 mg/dL (8.5-10.1) H 02/13/20 07:30 Total Bilirubin 0.3 mg/dL (0.2-1) 02/13/20 07:30 AST 39 U/L (15-37) H 02/13/20 07:30 ALT 88 U/L (13-61) H 02/13/20 07:30 Alkaline Phosphatase 76 U/L (45-117) 02/13/20 07:30 Ammonia 55.00 umol/L (11-32) H 02/19/20 10:40 Total Protein 8.5 g/dl (6.4-8.2) H 02/13/20 07:30 Albumin 4.4 g/dl (3.4-5.0) 02/13/20 07:30 Urine Color Yellow 02/10/20 22:50 Urine Appearance Clear 02/10/20 22:50 Urine pH 5.5 (5.0-8.0) 02/10/20 22:50 Ur Specific [place] 1.015 (1.010-1.035) 02/10/20 22:50 Urine Protein Negative (NEGATIVE) 02/10/20 22:50 Urine Glucose (UA) Negative (NEGATIVE) 02/10/20 22:50 Urine Ketones Negative (NEGATIVE) 02/10/20 22:50 Urine Blood Negative (NEGATIVE) 02/10/20 22:50 Urine Nitrite Negative (NEGATIVE) 02/10/20 22:50 Urine Bilirubin Negative (NEGATIVE) 02/10/20 22:50 Urine Urobilinogen 0.2 mg/dL (0.2-1.0) 02/10/20 22:50 Ur Leukocyte Esterase Negative (NEGATIVE) 02/10/20 22:50 Syphilis Serology Non-reactive (NONREACTIVE) 02/10/20 07:50 Ammonia level decreased from 339 to 55. Continue lactulose.
[2020-02-19] MEDS: FERROUS SO4 325 MG TABLET (FP) PO SCH (17:27)
[2020-02-19] MEDS: hydrOXYzine PAMOATE 25 MG CAPSULE (FP) PO PRN (21:26)
[2020-02-19] MEDS: THIAMINE HCL 100 MG TABLET (FP) PO SCH (21:26)
[2020-02-19] MEDS: MELATONIN 5 MG TABLETS PO SCH (21:26)
[2020-02-20] MEDS: LACTULOSE 20 GM/30 ML UDC (FOR ORAL USE ONLY) PO SCH ×3 (06:52→21:24)
[2020-02-20] MEDS: FOLIC ACID 1 MG TABLET (FP) PO SCH (09:44)
[2020-02-20] MEDS: MULTIVITAMINS (DAILY MVI) TABLET (FP) PO SCH (09:44)
[2020-02-20] MEDS: TRIAMCINOLONE ACET 0.1% OINT 15 GM TUBE TP SCH ×2 (09:44→21:24)
[2020-02-20] MEDS: FERROUS SO4 325 MG TABLET (FP) PO SCH (17:38)
[2020-02-20] MEDS: hydrOXYzine PAMOATE 25 MG CAPSULE (FP) PO PRN (21:24)
[2020-02-20] MEDS: THIAMINE HCL 100 MG TABLET (FP) PO SCH (21:24)
[2020-02-20] MEDS: MELATONIN 5 MG TABLETS PO SCH (21:24)
[2020-02-21] MEDS: LACTULOSE 20 GM/30 ML UDC (FOR ORAL USE ONLY) PO SCH ×3 (06:49→21:20)
[2020-02-21] MEDS ORDERED: PT OWN MED DRAWER 7, Y5N ONE ×2 (08:26→20:42)
[2020-02-21] MEDS: MULTIVITAMINS (DAILY MVI) TABLET (FP) PO SCH (09:48)
[2020-02-21] MEDS: FOLIC ACID 1 MG TABLET (FP) PO SCH (09:48)
[2020-02-21] MEDS: TRIAMCINOLONE ACET 0.1% OINT 15 GM TUBE TP SCH ×2 (09:49→21:21)
[2020-02-21] MEDS: FERROUS SO4 325 MG TABLET (FP) PO SCH (18:22)
[2020-02-21] MEDS: THIAMINE HCL 100 MG TABLET (FP) PO SCH (21:19)
[2020-02-21] MEDS: MELATONIN 5 MG TABLETS PO SCH (21:20)
[2020-02-21] MEDS: hydrOXYzine PAMOATE 25 MG CAPSULE (FP) PO PRN (21:21)
[2020-02-22] MEDS: LACTULOSE 20 GM/30 ML UDC (FOR ORAL USE ONLY) PO SCH ×3 (06:26→21:09)
[2020-02-22] MEDS: MULTIVITAMINS (DAILY MVI) TABLET (FP) PO SCH (09:57)
[2020-02-22] MEDS: FOLIC ACID 1 MG TABLET (FP) PO SCH (09:57)
[2020-02-22] MEDS: TRIAMCINOLONE ACET 0.1% OINT 15 GM TUBE TP SCH ×2 (09:57→21:10)
[2020-02-22] MEDS: FERROUS SO4 325 MG TABLET (FP) PO SCH (17:11)
[2020-02-22] MEDS: MELATONIN 5 MG TABLETS PO SCH (21:10)
[2020-02-22] MEDS: THIAMINE HCL 100 MG TABLET (FP) PO SCH (21:10)
[2020-02-22] MEDS: hydrOXYzine PAMOATE 25 MG CAPSULE (FP) PO PRN (21:10)
[2020-02-23] MEDS: LACTULOSE 20 GM/30 ML UDC (FOR ORAL USE ONLY) PO SCH ×3 (06:31→21:35)
[2020-02-23] MEDS: MULTIVITAMINS (DAILY MVI) TABLET (FP) PO SCH (10:20)
[2020-02-23] MEDS: FOLIC ACID 1 MG TABLET (FP) PO SCH (10:20)
[2020-02-23] MEDS: TRIAMCINOLONE ACET 0.1% OINT 15 GM TUBE TP SCH ×2 (10:21→21:35)
--- NOTE | 2020-02-23 14:40 | PN ---
[facility] Progress Note Note: Laboratory Last Values WBC 5.7 K/mm3 (4.0-10.0) 02/13/20 07:30 RBC 3.45 M/mm3 (4.00-5.60) L 02/13/20 07:30 Hgb 10.8 GM/dL (11.7-16.9) L 02/13/20 07:30 Hct 32.6 % (35.4-49) L 02/13/20 07:30 MCV 94.6 fl (80-96) 02/13/20 07:30 MCH 31.4 pg (25.7-33.7) 02/13/20 07:30 MCHC 33.2 g/dl (32.0-35.9) 02/13/20 07:30 RDW 17.3 % (11.9-15.9) H 02/13/20 07:30 Plt Count 351 K/MM3 (134-434) 02/13/20 07:30 MPV 8.9 fl (7.5-11.1) 02/13/20 07:30 Sickle Cell Screen Negative (NEGATIVE) 02/10/20 07:50 Sodium 138 mmol/L (136-145) 02/13/20 07:30 Potassium 3.7 mmol/L (3.5-5.1) 02/13/20 07:30 Chloride 104 mmol/L (98-107) 02/13/20 07:30 Carbon Dioxide 27 mmol/L (21-32) 02/13/20 07:30 Anion Gap 7 MMOL/L (8-16) L 02/13/20 07:30 BUN 10.2 mg/dL (7-18) 02/13/20 07:30 Creatinine 0.9 mg/dL (0.55-1.3) 02/13/20 07:30 Est GFR (CKD-EPI)AfAm 135.19 02/13/20 07:30 Est GFR (CKD-EPI)NonAf 116.64 02/13/20 07:30 Random Glucose 91 mg/dL (74-106) 02/13/20 07:30 Calcium 10.2 mg/dL (8.5-10.1) H 02/13/20 07:30 Total Bilirubin 0.3 mg/dL (0.2-1) 02/13/20 07:30 AST 39 U/L (15-37) H 02/13/20 07:30 ALT 88 U/L (13-61) H 02/13/20 07:30 Alkaline Phosphatase 76 U/L (45-117) 02/13/20 07:30 Ammonia 78.50 umol/L (11-32) H 02/23/20 08:14 Total Protein 8.5 g/dl (6.4-8.2) H 02/13/20 07:30 Albumin 4.4 g/dl (3.4-5.0) 02/13/20 07:30 Urine Color Yellow 02/10/20 22:50 Urine Appearance Clear 02/10/20 22:50 Urine pH 5.5 (5.0-8.0) 02/10/20 22:50 Ur Specific [place] 1.015 (1.010-1.035) 02/10/20 22:50 Urine Protein Negative (NEGATIVE) 02/10/20 22:50 Urine Glucose (UA) Negative (NEGATIVE) 02/10/20 22:50 Urine Ketones Negative (NEGATIVE) 02/10/20 22:50 Urine Blood Negative (NEGATIVE) 02/10/20 22:50 Urine Nitrite Negative (NEGATIVE) 02/10/20 22:50 Urine Bilirubin Negative (NEGATIVE) 02/10/20 22:50 Urine Urobilinogen 0.2 mg/dL (0.2-1.0) 02/10/20 22:50 Ur Leukocyte Esterase Negative (NEGATIVE) 02/10/20 22:50 Syphilis Serology Non-reactive (NONREACTIVE) 02/10/20 07:50 plt 78.50 Alert o x 3 nad oob ambulating with steady gait Pt reports tolerating Lactulose. Cont Lactulose
[2020-02-23] MEDS: FERROUS SO4 325 MG TABLET (FP) PO SCH (17:13)
[2020-02-23] MEDS ORDERED: PT OWN MED DRAWER 7, Y5N ONE (20:08)
[2020-02-23] MEDS: THIAMINE HCL 100 MG TABLET (FP) PO SCH (21:34)
[2020-02-23] MEDS: MELATONIN 5 MG TABLETS PO SCH (21:35)
[2020-02-23] MEDS: hydrOXYzine PAMOATE 25 MG CAPSULE (FP) PO PRN (21:36)
[2020-02-24] MEDS: LACTULOSE 20 GM/30 ML UDC (FOR ORAL USE ONLY) PO SCH ×3 (06:19→21:28)
[2020-02-24] MEDS ORDERED: PT OWN MED DRAWER 7, Y5N ONE (08:59)
[2020-02-24] MEDS: MULTIVITAMINS (DAILY MVI) TABLET (FP) PO SCH (09:50)
[2020-02-24] MEDS: FOLIC ACID 1 MG TABLET (FP) PO SCH (09:50)
[2020-02-24] MEDS: TRIAMCINOLONE ACET 0.1% OINT 15 GM TUBE TP SCH ×2 (09:51→21:28)
[2020-02-24] MEDS: FERROUS SO4 325 MG TABLET (FP) PO SCH (17:30)
[2020-02-24] MEDS: THIAMINE HCL 100 MG TABLET (FP) PO SCH (21:26)
[2020-02-24] MEDS: hydrOXYzine PAMOATE 25 MG CAPSULE (FP) PO PRN (21:26)
[2020-02-24] MEDS: MELATONIN 5 MG TABLETS PO SCH (21:27)
[2020-02-25] MEDS: LACTULOSE 20 GM/30 ML UDC (FOR ORAL USE ONLY) PO SCH ×3 (06:12→21:12)
[2020-02-25] MEDS: MULTIVITAMINS (DAILY MVI) TABLET (FP) PO SCH (09:56)
[2020-02-25] MEDS: TRIAMCINOLONE ACET 0.1% OINT 15 GM TUBE TP SCH ×2 (09:56→21:31)
[2020-02-25] MEDS: FOLIC ACID 1 MG TABLET (FP) PO SCH (09:56)
[2020-02-25] MEDS: FERROUS SO4 325 MG TABLET (FP) PO SCH (17:44)
[2020-02-25] MEDS: hydrOXYzine PAMOATE 25 MG CAPSULE (FP) PO PRN (21:12)
[2020-02-25] MEDS: MELATONIN 5 MG TABLETS PO SCH (21:12)
[2020-02-25] MEDS: THIAMINE HCL 100 MG TABLET (FP) PO SCH (21:12)
[2020-02-26] MEDS: LACTULOSE 20 GM/30 ML UDC (FOR ORAL USE ONLY) PO SCH ×3 (06:10→21:13)
[2020-02-26] MEDS: MULTIVITAMINS (DAILY MVI) TABLET (FP) PO SCH (09:55)
[2020-02-26] MEDS: FOLIC ACID 1 MG TABLET (FP) PO SCH (09:55)
[2020-02-26] MEDS: TRIAMCINOLONE ACET 0.1% OINT 15 GM TUBE TP SCH ×2 (09:56→21:13)
[2020-02-26] MEDS: FERROUS SO4 325 MG TABLET (FP) PO SCH (18:03)
[2020-02-26] MEDS ORDERED: PT OWN MED DRAWER 7, Y5N ONE (20:35)
[2020-02-26] MEDS: MELATONIN 5 MG TABLETS PO SCH (21:13)
[2020-02-26] MEDS: THIAMINE HCL 100 MG TABLET (FP) PO SCH (21:13)
[2020-02-26] MEDS: hydrOXYzine PAMOATE 25 MG CAPSULE (FP) PO PRN (21:14)
[2020-02-27] MEDS: LACTULOSE 20 GM/30 ML UDC (FOR ORAL USE ONLY) PO SCH ×3 (06:26→21:28)
[2020-02-27] MEDS: TRIAMCINOLONE ACET 0.1% OINT 15 GM TUBE TP SCH ×2 (09:40→21:28)
[2020-02-27] MEDS: FOLIC ACID 1 MG TABLET (FP) PO SCH (09:41)
[2020-02-27] MEDS: MULTIVITAMINS (DAILY MVI) TABLET (FP) PO SCH (09:41)
--- NOTE | 2020-02-27 10:20 | PN ---
[facility] Progress Note Note: Vital Signs Temperature 97.3 F L 02/27/20 07:07 Pulse Rate 105 H 02/27/20 07:07 Respiratory Rate 16 02/27/20 07:07 Blood Pressure 142/75 02/27/20 07:07 O2 Sat by Pulse Oximetry (%) 96 02/27/20 07:07 Laboratory Last Values WBC 5.7 K/mm3 (4.0-10.0) 02/13/20 07:30 RBC 3.45 M/mm3 (4.00-5.60) L 02/13/20 07:30 Hgb 10.8 GM/dL (11.7-16.9) L 02/13/20 07:30 Hct 32.6 % (35.4-49) L 02/13/20 07:30 MCV 94.6 fl (80-96) 02/13/20 07:30 MCH 31.4 pg (25.7-33.7) 02/13/20 07:30 MCHC 33.2 g/dl (32.0-35.9) 02/13/20 07:30 RDW 17.3 % (11.9-15.9) H 02/13/20 07:30 Plt Count 351 K/MM3 (134-434) 02/13/20 07:30 MPV 8.9 fl (7.5-11.1) 02/13/20 07:30 Sickle Cell Screen Negative (NEGATIVE) 02/10/20 07:50 Sodium 138 mmol/L (136-145) 02/13/20 07:30 Potassium 3.7 mmol/L (3.5-5.1) 02/13/20 07:30 Chloride 104 mmol/L (98-107) 02/13/20 07:30 Carbon Dioxide 27 mmol/L (21-32) 02/13/20 07:30 Anion Gap 7 MMOL/L (8-16) L 02/13/20 07:30 BUN 10.2 mg/dL (7-18) 02/13/20 07:30 Creatinine 0.9 mg/dL (0.55-1.3) 02/13/20 07:30 Est GFR (CKD-EPI)AfAm 135.19 02/13/20 07:30 Est GFR (CKD-EPI)NonAf 116.64 02/13/20 07:30 Random Glucose 91 mg/dL (74-106) 02/13/20 07:30 Calcium 10.2 mg/dL (8.5-10.1) H 02/13/20 07:30 Total Bilirubin 0.3 mg/dL (0.2-1) 02/13/20 07:30 AST 39 U/L (15-37) H 02/13/20 07:30 ALT 88 U/L (13-61) H 02/13/20 07:30 Alkaline Phosphatase 76 U/L (45-117) 02/13/20 07:30 Ammonia 78.50 umol/L (11-32) H 02/23/20 08:14 Total Protein 8.5 g/dl (6.4-8.2) H 02/13/20 07:30 Albumin 4.4 g/dl (3.4-5.0) 02/13/20 07:30 Urine Color Yellow 02/10/20 22:50 Urine Appearance Clear 02/10/20 22:50 Urine pH 5.5 (5.0-8.0) 02/10/20 22:50 Ur Specific [place] 1.015 (1.010-1.035) 02/10/20 22:50 Urine Protein Negative (NEGATIVE) 02/10/20 22:50 Urine Glucose (UA) Negative (NEGATIVE) 02/10/20 22:50 Urine Ketones Negative (NEGATIVE) 02/10/20 22:50 Urine Blood Negative (NEGATIVE) 02/10/20 22:50 Urine Nitrite Negative (NEGATIVE) 02/10/20 22:50 Urine Bilirubin Negative (NEGATIVE) 02/10/20 22:50 Urine Urobilinogen 0.2 mg/dL (0.2-1.0) 02/10/20 22:50 Ur Leukocyte Esterase Negative (NEGATIVE) 02/10/20 22:50 Syphilis Serology Non-reactive (NONREACTIVE) 02/10/20 07:50 AOx3, no distress oob ambulating with steady gait continues with elevated ammonia levels Cont Lactulose repeat ammonia levels in AM
[2020-02-27] MEDS: FERROUS SO4 325 MG TABLET (FP) PO SCH (18:58)
[2020-02-27] MEDS ORDERED: PT OWN MED DRAWER 7, Y5N ONE (19:24)
[2020-02-27] MEDS: MELATONIN 5 MG TABLETS PO SCH (21:28)
[2020-02-27] MEDS: THIAMINE HCL 100 MG TABLET (FP) PO SCH (21:28)
[2020-02-27] MEDS: hydrOXYzine PAMOATE 25 MG CAPSULE (FP) PO PRN (21:29)
[2020-02-28] MEDS: LACTULOSE 20 GM/30 ML UDC (FOR ORAL USE ONLY) PO SCH ×4 (06:41→21:36)
[2020-02-28] MEDS ORDERED: PT OWN MED DRAWER 7, Y5N ONE ×2 (08:50→09:37)
[2020-02-28] MEDS: FOLIC ACID 1 MG TABLET (FP) PO SCH (09:36)
[2020-02-28] MEDS: MULTIVITAMINS (DAILY MVI) TABLET (FP) PO SCH (09:37)
[2020-02-28] MEDS: TRIAMCINOLONE ACET 0.1% OINT 15 GM TUBE TP SCH ×2 (09:38→21:37)
[2020-02-28] MEDS: FERROUS SO4 325 MG TABLET (FP) PO SCH (17:20)
--- NOTE | 2020-02-28 17:43 | PN ---
[facility] Progress Note Note: ammonia 85.50,increse lactulose to 20 grams po qid,repeat ammonia level on sun03/01/2020
[2020-02-28] MEDS: THIAMINE HCL 100 MG TABLET (FP) PO SCH (21:36)
[2020-02-28] MEDS: hydrOXYzine PAMOATE 25 MG CAPSULE (FP) PO PRN (21:36)
[2020-02-28] MEDS: MELATONIN 5 MG TABLETS PO SCH (21:36)
[2020-02-29] MEDS ORDERED: PT OWN MED DRAWER 7, Y5N ONE (08:49)
[2020-02-29] MEDS: MULTIVITAMINS (DAILY MVI) TABLET (FP) PO SCH (09:39)
[2020-02-29] MEDS: FOLIC ACID 1 MG TABLET (FP) PO SCH (09:39)
[2020-02-29] MEDS: LACTULOSE 20 GM/30 ML UDC (FOR ORAL USE ONLY) PO SCH ×4 (09:39→21:40)
[2020-02-29] MEDS: TRIAMCINOLONE ACET 0.1% OINT 15 GM TUBE TP SCH ×2 (09:40→22:42)
[2020-02-29] MEDS: FERROUS SO4 325 MG TABLET (FP) PO SCH (17:47)
[2020-02-29] MEDS: THIAMINE HCL 100 MG TABLET (FP) PO SCH (21:40)
[2020-02-29] MEDS: MELATONIN 5 MG TABLETS PO SCH (21:41)
[2020-02-29] MEDS: hydrOXYzine PAMOATE 25 MG CAPSULE (FP) PO PRN (21:41)
[2020-03-01] MEDS: TRIAMCINOLONE ACET 0.1% OINT 15 GM TUBE TP SCH ×2 (10:30→21:25)
[2020-03-01] MEDS: LACTULOSE 20 GM/30 ML UDC (FOR ORAL USE ONLY) PO SCH ×4 (10:30→21:24)
[2020-03-01] MEDS: FOLIC ACID 1 MG TABLET (FP) PO SCH (10:31)
[2020-03-01] MEDS: MULTIVITAMINS (DAILY MVI) TABLET (FP) PO SCH (10:31)
[2020-03-01] MEDS: FERROUS SO4 325 MG TABLET (FP) PO SCH (18:29)
[2020-03-01] MEDS: hydrOXYzine PAMOATE 25 MG CAPSULE (FP) PO PRN (21:24)
[2020-03-01] MEDS: MELATONIN 5 MG TABLETS PO SCH (21:24)
[2020-03-01] MEDS: THIAMINE HCL 100 MG TABLET (FP) PO SCH (21:24)
[2020-03-02] MEDS ORDERED: PT OWN MED DRAWER 7, Y5N ONE (08:20)
[2020-03-02] MEDS: LACTULOSE 20 GM/30 ML UDC (FOR ORAL USE ONLY) PO SCH ×4 (09:15→21:41)
[2020-03-02] MEDS: FOLIC ACID 1 MG TABLET (FP) PO SCH (09:15)
[2020-03-02] MEDS: TRIAMCINOLONE ACET 0.1% OINT 15 GM TUBE TP SCH ×2 (09:15→23:00)
[2020-03-02] MEDS: MULTIVITAMINS (DAILY MVI) TABLET (FP) PO SCH (09:15)
[2020-03-02] MEDS: FERROUS SO4 325 MG TABLET (FP) PO SCH (17:37)
[2020-03-02] MEDS: MELATONIN 5 MG TABLETS PO SCH (21:40)
[2020-03-02] MEDS: THIAMINE HCL 100 MG TABLET (FP) PO SCH (21:41)
[2020-03-02] MEDS: hydrOXYzine PAMOATE 25 MG CAPSULE (FP) PO PRN (21:41)
[2020-03-03] MEDS ORDERED: PT OWN MED DRAWER 7, Y5N ONE (08:30)
[2020-03-03] MEDS: FOLIC ACID 1 MG TABLET (FP) PO SCH (09:34)
[2020-03-03] MEDS: LACTULOSE 20 GM/30 ML UDC (FOR ORAL USE ONLY) PO SCH ×4 (09:34→21:25)
[2020-03-03] MEDS: TRIAMCINOLONE ACET 0.1% OINT 15 GM TUBE TP SCH ×2 (09:34→21:25)
[2020-03-03] MEDS: MULTIVITAMINS (DAILY MVI) TABLET (FP) PO SCH (09:34)
[2020-03-03] MEDS: FERROUS SO4 325 MG TABLET (FP) PO SCH (18:04)
[2020-03-03] MEDS: MELATONIN 5 MG TABLETS PO SCH (21:24)
[2020-03-03] MEDS: THIAMINE HCL 100 MG TABLET (FP) PO SCH (21:24)
[2020-03-03] MEDS: hydrOXYzine PAMOATE 25 MG CAPSULE (FP) PO PRN (21:25)
[2020-03-04] MEDS ORDERED: PT OWN MED DRAWER 7, Y5N ONE (09:06)
[2020-03-04] MEDS: TRIAMCINOLONE ACET 0.1% OINT 15 GM TUBE TP SCH ×2 (09:47→21:23)
[2020-03-04] MEDS: MULTIVITAMINS (DAILY MVI) TABLET (FP) PO SCH (09:47)
[2020-03-04] MEDS: LACTULOSE 20 GM/30 ML UDC (FOR ORAL USE ONLY) PO SCH ×4 (09:47→21:22)
[2020-03-04] MEDS: FOLIC ACID 1 MG TABLET (FP) PO SCH (09:47)
[2020-03-04] MEDS: FERROUS SO4 325 MG TABLET (FP) PO SCH (17:40)
[2020-03-04] MEDS: MELATONIN 5 MG TABLETS PO SCH (21:22)
[2020-03-04] MEDS: THIAMINE HCL 100 MG TABLET (FP) PO SCH (21:22)
[2020-03-04] MEDS: hydrOXYzine PAMOATE 25 MG CAPSULE (FP) PO PRN (21:22)
[2020-03-05] MEDS: FOLIC ACID 1 MG TABLET (FP) PO SCH (10:04)
[2020-03-05] MEDS: LACTULOSE 20 GM/30 ML UDC (FOR ORAL USE ONLY) PO SCH ×4 (10:04→21:20)
[2020-03-05] MEDS: MULTIVITAMINS (DAILY MVI) TABLET (FP) PO SCH (10:04)
[2020-03-05] MEDS: TRIAMCINOLONE ACET 0.1% OINT 15 GM TUBE TP SCH ×2 (10:05→21:20)
[2020-03-05] MEDS: FERROUS SO4 325 MG TABLET (FP) PO SCH (17:40)
[2020-03-05] MEDS: MELATONIN 5 MG TABLETS PO SCH (21:19)
[2020-03-05] MEDS: THIAMINE HCL 100 MG TABLET (FP) PO SCH (21:19)
[2020-03-05] MEDS: hydrOXYzine PAMOATE 25 MG CAPSULE (FP) PO PRN (21:19)
[2020-03-06] MEDS: LACTULOSE 20 GM/30 ML UDC (FOR ORAL USE ONLY) PO SCH ×4 (09:51→21:35)
[2020-03-06] MEDS: FOLIC ACID 1 MG TABLET (FP) PO SCH (09:52)
[2020-03-06] MEDS: MULTIVITAMINS (DAILY MVI) TABLET (FP) PO SCH (09:52)
[2020-03-06] MEDS: TRIAMCINOLONE ACET 0.1% OINT 15 GM TUBE TP SCH ×2 (09:54→21:33)
[2020-03-06] MEDS: FERROUS SO4 325 MG TABLET (FP) PO SCH (17:46)
[2020-03-06] MEDS ORDERED: PT OWN MED DRAWER 7, Y5N ONE (20:54)
[2020-03-06] MEDS: hydrOXYzine PAMOATE 25 MG CAPSULE (FP) PO PRN (21:34)
[2020-03-06] MEDS: THIAMINE HCL 100 MG TABLET (FP) PO SCH (21:35)
[2020-03-06] MEDS: MELATONIN 5 MG TABLETS PO SCH (21:35)
[2020-03-07] MEDS: MULTIVITAMINS (DAILY MVI) TABLET (FP) PO SCH (09:31)
[2020-03-07] MEDS: FOLIC ACID 1 MG TABLET (FP) PO SCH (09:32)
[2020-03-07] MEDS: LACTULOSE 20 GM/30 ML UDC (FOR ORAL USE ONLY) PO SCH ×4 (09:32→21:48)
[2020-03-07] MEDS: TRIAMCINOLONE ACET 0.1% OINT 15 GM TUBE TP SCH ×2 (09:32→21:48)
[2020-03-07] MEDS: FERROUS SO4 325 MG TABLET (FP) PO SCH (17:50)
[2020-03-07] MEDS ORDERED: PT OWN MED DRAWER 7, Y5N ONE (19:33)
[2020-03-07] MEDS: MELATONIN 5 MG TABLETS PO SCH (21:48)
[2020-03-07] MEDS: THIAMINE HCL 100 MG TABLET (FP) PO SCH (21:48)
[2020-03-07] MEDS: hydrOXYzine PAMOATE 25 MG CAPSULE (FP) PO PRN (21:49)
[2020-03-08] MEDS: MULTIVITAMINS (DAILY MVI) TABLET (FP) PO SCH (10:06)
[2020-03-08] MEDS: FOLIC ACID 1 MG TABLET (FP) PO SCH (10:06)
[2020-03-08] MEDS: LACTULOSE 20 GM/30 ML UDC (FOR ORAL USE ONLY) PO SCH ×4 (10:08→21:38)
[2020-03-08] MEDS: TRIAMCINOLONE ACET 0.1% OINT 15 GM TUBE TP SCH ×2 (10:08→21:39)
[2020-03-08] MEDS: FERROUS SO4 325 MG TABLET (FP) PO SCH (17:14)
[2020-03-08] MEDS: MELATONIN 5 MG TABLETS PO SCH (21:38)
[2020-03-08] MEDS: hydrOXYzine PAMOATE 25 MG CAPSULE (FP) PO PRN (21:38)
[2020-03-08] MEDS: THIAMINE HCL 100 MG TABLET (FP) PO SCH (21:38)
[2020-03-09 07:12] VITALS: BP 124/75; PULSE 91; TEMP 97.4
--- NOTE | 2020-03-09 08:32 | DS ---
[facility] Rehab Discharge Summary - [facility] Rehab Discharge Summary Admission Date: 02/10/20 Discharge Date: 03/09/20 - History Present History: Alcohol dependence Pertinent Past History: pt for rehab after hospitalization 01/31/2020-02/10/2020 for acute pancreatitis . denies complaints at this time " I feel great " prior use of etoh . - Discharge Physical Exam Vital Signs: Vital Signs Temperature 97.4 F L 03/09/20 07:11 Pulse Rate 91 H 03/09/20 07:11 Respiratory Rate 16 03/09/20 07:11 Blood Pressure 124/75 03/09/20 07:11 O2 Sat by Pulse Oximetry (%) 97 03/09/20 07:11 Pertinent Admission Physical Exam Findings: Physical General Appearance: Yes: No Apparent Distress HEENTM: Yes: EOMI, Hearing grossly Normal, Normocephalic, Normal Voice Respiratory: Yes: Chest Non-Tender, Lungs Clear, Normal Breath Sounds, No Respiratory Distress, No Accessory Muscle Use Neck: Yes: No masses,lesions,Nodules, Trachea in good position Cardiology: Yes: Regular Rhythm, Regular Rate, S1, S2 Abdominal: Yes: Non Tender, Soft Back: Yes: Normal Inspection Musculoskeletal: Yes: Gait Steady Extremities: Yes: Normal Capillary Refill, Normal Range of Motion, Non-Tender Neurological: Yes: Fully Oriented, Alert, Motor Strength 5/5, Normal Mood/Affect Integumentary: Yes: Warm - Treatment Discharge Condition: Outpatient referral accepted (Medically stable for discharge.Patient will go to [facility] and for medical care for ojeda creatitis.) - Medication Discharge Medications: Ambulatory Orders NK [No Known Home Medication] 02/10/20 - Medication-Assisted Treatment (MAT) Medication-Assisted Treatment (MAT): No - Discharge Instructions Diet, activity, other medical instructions: Diet: as tolerated Activity: as tolerated Other medical instructions: Please follow up with aftercare referral. - Follow-up Referral Minutes to complete discharge: 15 - AMA Did Patient Leave Against Medical Advice: No
[2020-03-09] MEDS: MULTIVITAMINS (DAILY MVI) TABLET (FP) PO SCH (09:15)
[2020-03-09] MEDS: FOLIC ACID 1 MG TABLET (FP) PO SCH (09:15)
[2020-03-09] MEDS: LACTULOSE 20 GM/30 ML UDC (FOR ORAL USE ONLY) PO SCH (09:15)
[2020-03-09] MEDS: TRIAMCINOLONE ACET 0.1% OINT 15 GM TUBE TP SCH (09:16)
== END 2020-03-09 09:26 | disposition home or self-care (01) | DRG 772 ==
LOC: YASAS 16:03 → Y3E 17:45
PROVIDERS: ADMIT Allergy & Immunology; ATTEND Allergy & Immunology
PROC: HZ42ZZZ Group Counseling for Substance Abuse Treatment, Cognitive-Behavioral (ICD-10-PCS; principal; 2020-02-10)
DX: F10.20 Alcohol dependence, uncomplicated (principal); F17.211 Nicotine dependence, cigarettes, in remission; F32.9 Major depressive disorder, single episode, unspecified; K86.89 Other specified diseases of pancreas; I10 Essential (primary) hypertension; R21 Rash and other nonspecific skin eruption; Z91.030 Bee allergy status; Z91.048 Other nonmedicinal substance allergy status; Z91.09 Other allergy status, other than to drugs and biological substances
CPT/HCPCS: 36415; 80053; 81003; 82140; 85027; 85660; 86780

== ENCOUNTER 2020-10-06 12:43 | Inpatient (IN) | payer OTHER ==
[2020-10-06 13:24] VITALS: BMI 16.0
[2020-10-06] MEDS ORDERED: ONDANSETRON *ODT* 4 MG TABLET SL PRN (14:02)
[2020-10-06] MEDS ORDERED: MAG HYDROX/AL HYDROX/SIMETH 30 ML UNIT-DOSE CUP PO PRN (14:02)
[2020-10-06] MEDS ORDERED: IBUPROFEN 400 MG TABLET (FP) PO PRN (14:02)
[2020-10-06] MEDS ORDERED: NICOTINE POLACRILEX 2 MG GUM BUC PRN (14:02)
[2020-10-06] MEDS ORDERED: BISMUTH SUBSALICYLATE 524 MG/30 ML UD PO PRN (14:02)
[2020-10-06] MEDS ORDERED: LORazepam 1 MG TABLET PO PRN (14:02)
[2020-10-06] MEDS ORDERED: MAGNESIUM CITRATE 300 ML BOTTLE PO PRN (14:02)
[2020-10-06] MEDS ORDERED: MAGNESIUM HYDROX 2400MG/30ML ORAL SUSPENSION 30 ML CUP PO PRN (14:02)
[2020-10-06] MEDS ORDERED: MENTHOL/PHENOL 1 EACH UD MM PRN (14:02)
[2020-10-06] MEDS ORDERED: ACETAMINOPHEN 325 MG TABLET (FP) PO PRN ×2 (14:02)
[2020-10-06 17:25] LABS: HEMATOCRIT 34.1 % (35.4-49); HEMOGLOBIN 12.1 GM/dL (11.7-16.9); MCH 33.8 pg (25.7-33.7); MCHC 35.6 g/dl (32.0-35.9); MEAN CELL VOLUME 95.1 fl (80-96); MEAN PLT VOLUME 8.8 fl (7.5-11.1); PLATELET COUNT 117 K/MM3 (134-434); POTASSIUM 3.8 mmol/L (3.5-5.1); RBC 3.59 M/mm3 (4.00-5.60); RDW 15.7 % (11.9-15.9); WHITE BLOOD COUNT 3.5 K/mm3 (4.0-10.0)
[2020-10-06 17:32] LABS: CALCIUM 9.5 mg/dL (8.5-10.1); CREATININE 1.1 mg/dL (0.55-1.3)
[2020-10-06 17:33] LABS: BLOOD UREA NITROGEN 21.5 mg/dL (7-18)
[2020-10-06 17:36] LABS: BILIRUBIN,TOTAL 1.5 mg/dL (0.2-1)
[2020-10-06 17:37] LABS: TOT PROT 8.2 g/dl (6.4-8.2)
[2020-10-06] MEDS: LORazepam 2 MG TABLET PO SCH ×2 (17:58→22:25)
[2020-10-06] MEDS: hydrOXYzine PAMOATE 25 MG CAPSULE (FP) PO SCH ×2 (17:58→22:25)
[2020-10-06] MEDS ORDERED: MELATONIN 5 MG TABLETS PO SCH (22:00)
[2020-10-06] MEDS: THIAMINE HCL 100 MG TABLET (FP) PO SCH (22:25)
[2020-10-07] MEDS: LORazepam 2 MG TABLET PO SCH ×4 (05:49→22:22)
[2020-10-07] MEDS: hydrOXYzine PAMOATE 25 MG CAPSULE (FP) PO SCH ×2 (05:49→10:22)
[2020-10-07] MEDS: PRENATAL VITAMINS W/ FOLIC ACID TABLET (FP) PO SCH (10:22)
[2020-10-07] MEDS: hydrOXYzine PAMOATE 25 MG CAPSULE (FP) PO PRN ×2 (17:26→22:22)
[2020-10-07] MEDS: THIAMINE HCL 100 MG TABLET (FP) PO SCH (22:22)
[2020-10-07] MEDS: SUVOREXANT 10 MG TABLET PO PRN (22:23)
[2020-10-08] MEDS: LORazepam 1 MG TABLET PO SCH ×4 (05:13→22:00)
[2020-10-08] MEDS: PRENATAL VITAMINS W/ FOLIC ACID TABLET (FP) PO SCH (10:10)
[2020-10-08 11:47] LABS: BASO % 0.6 % (0-2.0); EOS % 2.9 % (0-4.5); HEMATOCRIT 29.6 % (35.4-49); HEMOGLOBIN 10.3 GM/dL (11.7-16.9); LYMPH % 61.6 % (8-40); MCH 33.7 pg (25.7-33.7); MCHC 34.8 g/dl (32.0-35.9); MEAN CELL VOLUME 96.8 fl (80-96); MEAN PLT VOLUME 9.3 fl (7.5-11.1); MONO % 7.3 % (3.8-10.2); NEUT % 27.6 % (42.8-82.8); PLATELET COUNT 75 K/MM3 (134-434); RBC 3.06 M/mm3 (4.00-5.60); RDW 15.5 % (11.9-15.9); WHITE BLOOD COUNT 3.3 K/mm3 (4.0-10.0)
[2020-10-08 11:52] LABS: INR 0.9 (0.83-1.09); PROTHROMBIN TIME (PATIENT) 11.1 SEC (9.7-13.0)
[2020-10-08 11:58] LABS: POTASSIUM 4.1 mmol/L (3.5-5.1)
[2020-10-08 12:36] LABS: CALCIUM 9.4 mg/dL (8.5-10.1)
[2020-10-08 12:37] LABS: ALBUMIN 3.4 g/dl (3.4-5.0); BLOOD UREA NITROGEN 12.4 mg/dL (7-18)
[2020-10-08 12:40] LABS: CREATININE 0.9 mg/dL (0.55-1.3)
[2020-10-08 12:41] LABS: BILIRUBIN,TOTAL 1.6 mg/dL (0.2-1)
[2020-10-08 13:43] LABS: ANISOCYTOSIS 0; MACROCYTOSIS 0; PLATELET ESTIMATE DECREASED
[2020-10-08] MEDS: SUVOREXANT 10 MG TABLET PO PRN (22:00)
[2020-10-08] MEDS: THIAMINE HCL 100 MG TABLET (FP) PO SCH (22:00)
[2020-10-09] MEDS ORDERED: LORazepam 0.5 MG TABLET PO PRN
[2020-10-09] MEDS: LORazepam 0.5 MG TABLET PO SCH ×4 (05:37→22:11)
[2020-10-09] MEDS: PRENATAL VITAMINS W/ FOLIC ACID TABLET (FP) PO SCH (10:10)
[2020-10-09] MEDS: SUVOREXANT 10 MG TABLET PO PRN (22:11)
[2020-10-09] MEDS: METHOCARBAMOL 500 MG TABLET PO PRN (22:11)
[2020-10-09] MEDS: THIAMINE HCL 100 MG TABLET (FP) PO SCH (22:11)
[2020-10-09] MEDS: hydrOXYzine PAMOATE 25 MG CAPSULE (FP) PO PRN (22:11)
[2020-10-10] MEDS ORDERED: LORazepam 0.5 MG TABLET PO ONE (05:00)
[2020-10-10] MEDS: METHOCARBAMOL 500 MG TABLET PO PRN (07:12)
[2020-10-10] MEDS ORDERED: MASKS NR ONE (07:21)
[2020-10-10] MEDS: PRENATAL VITAMINS W/ FOLIC ACID TABLET (FP) PO SCH (10:01)
[2020-10-10 11:14] VITALS: BP 137/89; PULSE 88; TEMP 97.8
== END 2020-10-10 10:57 | disposition other institution (70) | DRG 775 ==
LOC: YASAS 12:43 → Y3N 14:49
PROVIDERS: ADMIT Allergy & Immunology; ATTEND Allergy & Immunology
PROC: HZ2ZZZZ Detoxification Services for Substance Abuse Treatment (ICD-10-PCS; principal; 2020-10-06)
DX: F10.230 Alcohol dependence with withdrawal, uncomplicated (principal); F12.20 Cannabis dependence, uncomplicated; F19.282 Other psychoactive substance dependence with psychoactive substance-induced sleep disorder; F19.24 Other psychoactive substance dependence with psychoactive substance-induced mood disorder; D61.818 Other pancytopenia; K86.0 Alcohol-induced chronic pancreatitis; K86.81 Exocrine pancreatic insufficiency; G40.509 Epileptic seizures related to external causes, not intractable, without status epilepticus; R94.5 Abnormal results of liver function studies; Z87.891 Personal history of nicotine dependence; Z91.048 Other nonmedicinal substance allergy status
CPT/HCPCS: 36415; 80053; 83690; 85025; 85027; 85610; 86780; C9803; U0003

== ENCOUNTER 2020-10-10 11:13 | Inpatient (IN) | payer OTHER ==
[2020-10-10] MEDS ORDERED: NICOTINE POLACRILEX 2 MG GUM BUC PRN (12:17)
[2020-10-10] MEDS ORDERED: hydrOXYzine PAMOATE 25 MG CAPSULE (FP) PO PRN (12:17)
[2020-10-10] MEDS ORDERED: MAGNESIUM CITRATE 300 ML BOTTLE PO PRN (12:17)
[2020-10-10] MEDS ORDERED: MENTHOL/PHENOL 1 EACH UD MM PRN (12:17)
[2020-10-10] MEDS ORDERED: MAGNESIUM HYDROX 2400MG/30ML ORAL SUSPENSION 30 ML CUP PO PRN (12:17)
[2020-10-10] MEDS ORDERED: P-EPHED 60MG/TRIPROLIDI 2.5MG TABLET PO PRN (12:17)
[2020-10-10] MEDS ORDERED: LOPERAMIDE HCL 2 MG CAPSULE PO PRN (12:17)
[2020-10-10] MEDS ORDERED: guaiFENesin 200 MG/10 ML 10 ML UNIT-DOSE CUPS PO PRN (12:17)
[2020-10-10] MEDS: MELATONIN 5 MG TABLETS PO SCH (21:19)
[2020-10-10] MEDS: THIAMINE HCL 100 MG TABLET (FP) PO SCH (21:19)
[2020-10-11] MEDS: IBUPROFEN 400 MG TABLET (FP) PO PRN (01:05)
[2020-10-11] MEDS: PRENATAL VITAMINS W/ FOLIC ACID TABLET (FP) PO SCH (10:07)
[2020-10-11 14:49] LABS: BASO % 0.7 % (0-2.0); EOS % 2.5 % (0-4.5); HEMATOCRIT 30.4 % (35.4-49); HEMOGLOBIN 10.3 GM/dL (11.7-16.9); LYMPH % 42.1 % (8-40); MCH 33.6 pg (25.7-33.7); MEAN CELL VOLUME 98.7 fl (80-96); MEAN PLT VOLUME 9.2 fl (7.5-11.1); MONO % 15.3 % (3.8-10.2); NEUT % 39.4 % (42.8-82.8); PLATELET COUNT 149 K/MM3 (134-434); RBC 3.08 M/mm3 (4.00-5.60); RDW 16.1 % (11.9-15.9); WHITE BLOOD COUNT 4.4 K/mm3 (4.0-10.0)
[2020-10-11 15:05] LABS: BILIRUBIN,TOTAL 0.7 mg/dL (0.2-1)
[2020-10-11 15:06] LABS: BILIRUBIN,DIRECT 0.5 mg/dL (0.0-0.2); TOT PROT 8.4 g/dl (6.4-8.2)
[2020-10-11 15:39] LABS: ALBUMIN 4.3 g/dl (3.4-5.0)
[2020-10-11] MEDS: MAG HYDROX/AL HYDROX/SIMETH 30 ML UNIT-DOSE CUP PO PRN (17:02)
[2020-10-11] MEDS: MELATONIN 5 MG TABLETS PO SCH (21:27)
[2020-10-11] MEDS: THIAMINE HCL 100 MG TABLET (FP) PO SCH (21:27)
[2020-10-11] MEDS: traZODone HCL 50 MG TABLET (FP) PO SCH (21:28)
[2020-10-12] MEDS ORDERED: FERROUS SO4 325 MG TABLET (FP) PO SCH (10:00)
[2020-10-12] MEDS: PRENATAL VITAMINS W/ FOLIC ACID TABLET (FP) PO SCH (10:01)
[2020-10-12] MEDS: MELATONIN 5 MG TABLETS PO SCH (21:13)
[2020-10-12] MEDS: THIAMINE HCL 100 MG TABLET (FP) PO SCH (21:13)
[2020-10-12] MEDS: traZODone HCL 50 MG TABLET (FP) PO SCH (21:13)
[2020-10-13] MEDS: PRENATAL VITAMINS W/ FOLIC ACID TABLET (FP) PO SCH (09:56)
[2020-10-13] MEDS: IBUPROFEN 400 MG TABLET (FP) PO PRN (09:56)
[2020-10-13] MEDS: traZODone HCL 50 MG TABLET (FP) PO SCH (21:30)
[2020-10-13] MEDS: MELATONIN 5 MG TABLETS PO SCH (21:31)
[2020-10-13] MEDS: THIAMINE HCL 100 MG TABLET (FP) PO SCH (21:31)
[2020-10-14] MEDS: PRENATAL VITAMINS W/ FOLIC ACID TABLET (FP) PO SCH (10:24)
[2020-10-14] MEDS: THIAMINE HCL 100 MG TABLET (FP) PO SCH (21:13)
[2020-10-14] MEDS: MELATONIN 5 MG TABLETS PO SCH (21:13)
[2020-10-14] MEDS: traZODone HCL 50 MG TABLET (FP) PO SCH (21:13)
[2020-10-15] MEDS: MAG HYDROX/AL HYDROX/SIMETH 30 ML UNIT-DOSE CUP PO PRN ×3 (06:04→21:22)
[2020-10-15] MEDS: PRENATAL VITAMINS W/ FOLIC ACID TABLET (FP) PO SCH (10:13)
[2020-10-15] MEDS: MELATONIN 5 MG TABLETS PO SCH (21:09)
[2020-10-15] MEDS: THIAMINE HCL 100 MG TABLET (FP) PO SCH (21:09)
[2020-10-15] MEDS: traZODone HCL 50 MG TABLET (FP) PO SCH (21:09)
[2020-10-16] MEDS: PRENATAL VITAMINS W/ FOLIC ACID TABLET (FP) PO SCH (09:53)
[2020-10-16] MEDS: THIAMINE HCL 100 MG TABLET (FP) PO SCH (21:16)
[2020-10-16] MEDS: traZODone HCL 50 MG TABLET (FP) PO SCH (21:16)
[2020-10-16] MEDS: MELATONIN 5 MG TABLETS PO SCH (21:17)
[2020-10-17] MEDS: PRENATAL VITAMINS W/ FOLIC ACID TABLET (FP) PO SCH (10:08)
[2020-10-17] MEDS: THIAMINE HCL 100 MG TABLET (FP) PO SCH (21:28)
[2020-10-17] MEDS: MELATONIN 5 MG TABLETS PO SCH (21:28)
[2020-10-17] MEDS: traZODone HCL 50 MG TABLET (FP) PO SCH (21:28)
[2020-10-18] MEDS: PRENATAL VITAMINS W/ FOLIC ACID TABLET (FP) PO SCH (10:10)
[2020-10-18 10:44] LABS: POTASSIUM 3.9 mmol/L (3.5-5.1)
[2020-10-18 10:52] LABS: ALBUMIN 3.5 g/dl (3.4-5.0); BLOOD UREA NITROGEN 8.6 mg/dL (7-18)
[2020-10-18 10:55] LABS: CREATININE 1.1 mg/dL (0.55-1.3)
[2020-10-18 10:57] LABS: BILIRUBIN,TOTAL 0.6 mg/dL (0.2-1); TOT PROT 7.4 g/dl (6.4-8.2)
[2020-10-18] MEDS: MELATONIN 5 MG TABLETS PO SCH (21:17)
[2020-10-18] MEDS: traZODone HCL 50 MG TABLET (FP) PO SCH (21:17)
[2020-10-18] MEDS: THIAMINE HCL 100 MG TABLET (FP) PO SCH (21:17)
[2020-10-19] MEDS: PRENATAL VITAMINS W/ FOLIC ACID TABLET (FP) PO SCH (10:17)
[2020-10-19] MEDS: traZODone HCL 50 MG TABLET (FP) PO SCH (21:28)
[2020-10-19] MEDS: THIAMINE HCL 100 MG TABLET (FP) PO SCH (21:29)
[2020-10-19] MEDS: MELATONIN 5 MG TABLETS PO SCH (21:29)
[2020-10-20] MEDS: PRENATAL VITAMINS W/ FOLIC ACID TABLET (FP) PO SCH (09:59)
[2020-10-20] MEDS: MELATONIN 5 MG TABLETS PO SCH (21:14)
[2020-10-20] MEDS: THIAMINE HCL 100 MG TABLET (FP) PO SCH (21:14)
[2020-10-20] MEDS: traZODone HCL 50 MG TABLET (FP) PO SCH (21:15)
[2020-10-21] MEDS: PRENATAL VITAMINS W/ FOLIC ACID TABLET (FP) PO SCH (10:00)
[2020-10-21] MEDS: MELATONIN 5 MG TABLETS PO SCH (21:22)
[2020-10-21] MEDS: THIAMINE HCL 100 MG TABLET (FP) PO SCH (21:22)
[2020-10-21] MEDS: traZODone HCL 50 MG TABLET (FP) PO SCH (21:22)
[2020-10-22] MEDS: PRENATAL VITAMINS W/ FOLIC ACID TABLET (FP) PO SCH (10:25)
[2020-10-22] MEDS: traZODone HCL 50 MG TABLET (FP) PO SCH (21:26)
[2020-10-22] MEDS: THIAMINE HCL 100 MG TABLET (FP) PO SCH (21:26)
[2020-10-22] MEDS: MELATONIN 5 MG TABLETS PO SCH (21:26)
[2020-10-23] MEDS: PRENATAL VITAMINS W/ FOLIC ACID TABLET (FP) PO SCH (10:03)
[2020-10-23] MEDS: THIAMINE HCL 100 MG TABLET (FP) PO SCH (21:23)
[2020-10-23] MEDS: MELATONIN 5 MG TABLETS PO SCH (21:23)
[2020-10-23] MEDS: traZODone HCL 50 MG TABLET (FP) PO SCH (21:23)
[2020-10-24] MEDS: PRENATAL VITAMINS W/ FOLIC ACID TABLET (FP) PO SCH (10:17)
[2020-10-24] MEDS: traZODone HCL 50 MG TABLET (FP) PO SCH (21:24)
[2020-10-24] MEDS: THIAMINE HCL 100 MG TABLET (FP) PO SCH (21:24)
[2020-10-24] MEDS: MELATONIN 5 MG TABLETS PO SCH (21:24)
[2020-10-25 06:48] VITALS: BP 133/93; PULSE 88; TEMP 98.1
[2020-10-25] MEDS: PRENATAL VITAMINS W/ FOLIC ACID TABLET (FP) PO SCH (09:56)
== END 2020-10-25 10:05 | disposition home or self-care (01) | DRG 772 ==
LOC: YASAS 11:13 → Y3W 11:16
PROVIDERS: ADMIT Allergy & Immunology; ATTEND Allergy & Immunology
PROC: HZ42ZZZ Group Counseling for Substance Abuse Treatment, Cognitive-Behavioral (ICD-10-PCS; principal; 2020-10-10)
DX: F11.20 Opioid dependence, uncomplicated (principal); F12.20 Cannabis dependence, uncomplicated; F32.9 Major depressive disorder, single episode, unspecified; D61.818 Other pancytopenia; D64.9 Anemia, unspecified; G47.00 Insomnia, unspecified; K86.9 Disease of pancreas, unspecified; Z86.69 Personal history of other diseases of the nervous system and sense organs; Z87.892 Personal history of anaphylaxis; Z91.048 Other nonmedicinal substance allergy status; Z91.030 Bee allergy status
CPT/HCPCS: 36415; 80053; 80076; 82607; 82728; 82746; 83540; 83550; 85025; 87522; C9803; U0003

== ENCOUNTER 2021-07-13 11:55 | Inpatient (IN) | payer OTHER ==
[2021-07-13 13:30] VITALS: BMI 15.9
[2021-07-13] MEDS ORDERED: MAG HYDROX/AL HYDROX/SIMETH 30 ML UNIT-DOSE CUP PO PRN (13:31)
[2021-07-13] MEDS ORDERED: MAGNESIUM CITRATE 300 ML BOTTLE PO PRN (13:31)
[2021-07-13] MEDS ORDERED: IBUPROFEN 400 MG TABLET (FP) PO PRN (13:31)
[2021-07-13] MEDS ORDERED: LORazepam 1 MG TABLET PO PRN (13:31)
[2021-07-13] MEDS ORDERED: BISMUTH SUBSALICYLATE 524 MG/30 ML PO PRN (13:31)
[2021-07-13] MEDS ORDERED: ACETAMINOPHEN 325 MG TABLET (FP) PO PRN ×2 (13:31)
[2021-07-13] MEDS ORDERED: MENTHOL/PHENOL 1 EACH UD MM PRN (13:31)
[2021-07-13] MEDS ORDERED: NICOTINE 10 MG CARTRIDGE (INHALER) IH PRN (13:31)
[2021-07-13] MEDS ORDERED: MAGNESIUM HYDROX 2400MG/30ML ORAL SUSPENSION 30 ML CUP PO PRN (13:31)
[2021-07-13] MEDS ORDERED: ONDANSETRON *ODT* 4 MG TABLET SL PRN (13:31)
[2021-07-13] MEDS: LORazepam 2 MG TABLET PO SCH ×3 (14:17→22:23)
[2021-07-13] MEDS: hydrOXYzine PAMOATE 25 MG CAPSULE (FP) PO SCH ×3 (14:18→22:22)
[2021-07-13] MEDS: PRENATAL VITAMINS W/ FOLIC ACID TABLET (FP) PO SCH (14:18)
[2021-07-13] MEDS: NICOTINE 14 MG/24 HOURS TOPICAL PATCH TD SCH (14:21)
[2021-07-13] MEDS ORDERED: MELATONIN 5 MG TABLETS PO SCH (22:00)
[2021-07-13] MEDS: THIAMINE HCL 100 MG TABLET (FP) PO SCH (22:22)
[2021-07-13] MEDS: METHOCARBAMOL 500 MG TABLET PO PRN (22:23)
[2021-07-14] MEDS: LORazepam 2 MG TABLET PO SCH ×4 (06:21→22:13)
[2021-07-14] MEDS: hydrOXYzine PAMOATE 25 MG CAPSULE (FP) PO SCH ×5 (06:21→22:13)
[2021-07-14] MEDS: METHOCARBAMOL 500 MG TABLET PO PRN (10:22)
[2021-07-14] MEDS: PRENATAL VITAMINS W/ FOLIC ACID TABLET (FP) PO SCH (10:23)
[2021-07-14] MEDS: NICOTINE 14 MG/24 HOURS TOPICAL PATCH TD SCH (10:23)
[2021-07-14 14:39] LABS: HEMATOCRIT 37.9 % (35.4-49); HEMOGLOBIN 13.4 GM/dL (11.7-16.9); MCH 33.5 pg (25.7-33.7); MCHC 35.3 g/dl (32.0-35.9); MEAN PLT VOLUME 9.2 fl (7.5-11.1); PLATELET COUNT 165 10^3/uL (134-434); RBC 3.99 M/mm3 (4.00-5.60); RDW 15.2 % (11.9-15.9); WHITE BLOOD COUNT 4.5 K/mm3 (4.0-10.0)
[2021-07-14 14:44] LABS: CALCIUM 9.3 mg/dL (8.5-10.1)
[2021-07-14 14:45] LABS: ALBUMIN 3.2 g/dl (3.4-5.0); BLOOD UREA NITROGEN 17.8 mg/dL (7-18)
[2021-07-14 14:48] LABS: CREATININE 1.3 mg/dL (0.55-1.3)
[2021-07-14 14:49] LABS: BILIRUBIN,TOTAL 1.7 mg/dL (0.2-1)
[2021-07-14 14:50] LABS: TOT PROT 7.3 g/dl (6.4-8.2)
[2021-07-14] MEDS: THIAMINE HCL 100 MG TABLET (FP) PO SCH (22:13)
[2021-07-14] MEDS: traZODone HCL 100 MG TABLET (FP) PO SCH (22:13)
[2021-07-15] MEDS: LORazepam 1 MG TABLET PO SCH ×4 (05:31→23:42)
[2021-07-15] MEDS: hydrOXYzine PAMOATE 25 MG CAPSULE (FP) PO SCH ×5 (05:32→23:41)
[2021-07-15] MEDS: PRENATAL VITAMINS W/ FOLIC ACID TABLET (FP) PO SCH (10:10)
[2021-07-15] MEDS: NICOTINE 14 MG/24 HOURS TOPICAL PATCH TD SCH (10:10)
[2021-07-15] MEDS: METHOCARBAMOL 500 MG TABLET PO PRN (10:12)
[2021-07-15 12:59] VITALS: BP 113/78; PULSE 96; TEMP 97.8
[2021-07-15] MEDS: traZODone HCL 100 MG TABLET (FP) PO SCH (23:41)
[2021-07-15] MEDS: THIAMINE HCL 100 MG TABLET (FP) PO SCH (23:42)
[2021-07-16] MEDS ORDERED: LORazepam 0.5 MG TABLET PO PRN
[2021-07-16] MEDS ORDERED: LORazepam 0.5 MG TABLET PO SCH (05:00)
[2021-07-17] MEDS ORDERED: LORazepam 0.5 MG TABLET PO ONE (05:00)
== END 2021-07-16 00:31 | disposition short-term general hospital (02) | DRG 775 ==
LOC: YASAS 11:55 → Y6N 13:53
PROVIDERS: ADMIT Allergy & Immunology; ATTEND Allergy & Immunology
PROC: HZ2ZZZZ Detoxification Services for Substance Abuse Treatment (ICD-10-PCS; principal; 2021-07-13)
DX: F10.230 Alcohol dependence with withdrawal, uncomplicated (principal); F10.282 Alcohol dependence with alcohol-induced sleep disorder; F10.280 Alcohol dependence with alcohol-induced anxiety disorder; F12.20 Cannabis dependence, uncomplicated; F17.210 Nicotine dependence, cigarettes, uncomplicated; G47.00 Insomnia, unspecified; E80.6 Other disorders of bilirubin metabolism; R74.01 Elevation of levels of liver transaminase levels; K76.0 Fatty (change of) liver, not elsewhere classified; R73.9 Hyperglycemia, unspecified; R11.0 Nausea; R10.9 Unspecified abdominal pain; Z91.038 Other insect allergy status; Z91.048 Other nonmedicinal substance allergy status; Z87.19 Personal history of other diseases of the digestive system; Z86.69 Personal history of other diseases of the nervous system and sense organs
CPT/HCPCS: 36415; 80053; 82962; 85027; 86780; C9803; U0003; U0005

== ENCOUNTER 2021-07-15 14:13 | Inpatient (IN) | payer OTHER ==
[2021-07-15] MEDS ORDERED: LACTATED RINGERS SOLUTION 1,000 ML IV STA (16:35)
[2021-07-15] MEDS ORDERED: morphine SULFATE 4 MG/ML VIAL IVPUSH ONE (17:19)
[2021-07-15] MEDS ORDERED: LORazepam 2 MG/ML SDV VIAL IVPUSH ONE (17:22)
[2021-07-15] MEDS ORDERED: ONDANSETRON *ODT* 4 MG TABLET SL ONE (18:03)
[2021-07-15] MEDS ORDERED: morphine SULFATE 4 MG/ML VIAL ONE (18:34)
[2021-07-15] MEDS ORDERED: ONDANSETRON *ODT* 4 MG TABLET ONE (18:35)
[2021-07-15] MEDS ORDERED: LORazepam 2 MG/ML SDV VIAL ONE (18:37)
[2021-07-15 19:01] LABS: BASO % 0.1 % (0-2.0); EOS % 0.4 % (0-4.5); HEMATOCRIT 40.1 % (35.4-49); HEMOGLOBIN 13.8 GM/dL (11.7-16.9); LYMPH % 14.2 % (8-40); MCH 32.7 pg (25.7-33.7); MCHC 34.4 g/dl (32.0-35.9); MEAN CELL VOLUME 94.9 fl (80-96); MEAN PLT VOLUME 9.2 fl (7.5-11.1); MONO % 3.6 % (3.8-10.2); NEUT % 81.7 % (42.8-82.8); PLATELET COUNT 154 10^3/uL (134-434); RBC 4.23 M/mm3 (4.00-5.60); RDW 15.2 % (11.9-15.9)
[2021-07-15 19:07] LABS: INR 0.95 (0.83-1.09); PROTHROMBIN TIME (PATIENT) 10.6 SEC (9.7-13.0)
[2021-07-15 19:10] LABS: ACTIVATED PTT 30.4 SECONDS (25.2-36.5)
[2021-07-15 19:24] LABS: CHLORIDE 103 mmol/L (98-107); SODIUM 131 mmol/L (136-145)
[2021-07-15 19:27] LABS: CALCIUM 10.1 mg/dL (8.5-10.1)
[2021-07-15 19:28] LABS: BLOOD UREA NITROGEN 17.8 mg/dL (7-18); CO2 21 mmol/L (21-32); GLUCOSE,RANDOM 110 mg/dL (74-106)
[2021-07-15 19:29] LABS: LIPASE 20 U/L (73-393)
[2021-07-15 19:30] LABS: BILIRUBIN,DIRECT 0.3 mg/dL (0.0-0.2)
[2021-07-15 19:31] LABS: CREATININE 1.2 mg/dL (0.55-1.3); SGOT/AST 316 U/L (15-37)
[2021-07-15 19:32] LABS: BILIRUBIN,TOTAL 1.6 mg/dL (0.2-1)
[2021-07-15 19:33] LABS: ALK PHOS 226 U/L (45-117)
[2021-07-15] MEDS ORDERED: FAMOTIDINE 20 MG/50 ML IVPB 20 MG/50 ML MG IVPB ONE (19:38)
[2021-07-15] MEDS ORDERED: MAG HYDROX/AL HYDROX/SIMETH 30 ML UNIT-DOSE CUP PO ONE (19:38)
[2021-07-15 19:42] LABS: ANION GAP 6 MMOL/L (8-16); SGPT/ALT 178 U/L (13-61); TOT PROT 9.4 g/dl (6.4-8.2)
[2021-07-15] MEDS ORDERED: MAG HYDROX/AL HYDROX/SIMETH 30 ML UNIT-DOSE CUP ONE (20:11)
[2021-07-15 23:36] LABS: BLOOD UREA NITROGEN 16.7 mg/dL (7-18); CALCIUM 9.3 mg/dL (8.5-10.1)
[2021-07-15 23:40] LABS: CREATININE 1.1 mg/dL (0.55-1.3)
[2021-07-16] MEDS ORDERED: LORazepam 1 MG TABLET PO PRN (01:09)
[2021-07-16] MEDS ORDERED: morphine SULFATE 4 MG/ML VIAL IVPUSH PRN (01:09)
[2021-07-16] MEDS ORDERED: ONDANSETRON 4 MG/2 ML VIAL IVPUSH PRN (01:18)
[2021-07-16] MEDS ORDERED: MELATONIN 5 MG TABLETS PO PRN (01:25)
[2021-07-16] MEDS ORDERED: FOLIC ACID INJECTION - 1 MG, THIAMINE HCL 100 MG, MULTIVIT INJECTION ADULT 10 ML in SOD... IVPB ONE (01:49)
[2021-07-16] MEDS ORDERED: SODIUM CHLORIDE 1,000 ML IV SCH (02:00)
[2021-07-16] MEDS ORDERED: MELATONIN 5 MG TABLETS ONE (04:19)
[2021-07-16] MEDS ORDERED: LORazepam 1 MG TABLET ONE (04:20)
[2021-07-16 04:35] LABS: EPI CELLS 1 /uL (0-25.1); HYALINE CASTS 2 /uL (0-3.1); PH,URINE 5.5 (5.0-8.0); URINE APPEARANCE CLEAR; URINE BACTERIA 1 /uL (0-1359); URINE BILIRUBIN 1+ (NEGATIVE); URINE COLOR ORANGE; URINE GLUCOSE (UA) NEGATIVE (NEGATIVE); URINE KETONE TRACE (NEGATIVE); URINE LEUK ESTERASE NEGATIVE (NEGATIVE); URINE NITRITE NEGATIVE (NEGATIVE); URINE PROTEIN 1+ (NEGATIVE); URINE RBC 9 /uL (0-23.9); URINE WBC 4 /uL (0-25.8)
[2021-07-16] MEDS ORDERED: morphine SULFATE 4 MG/ML VIAL ONE (07:52)
[2021-07-16 08:42] LABS: HEMATOCRIT 32.9 % (35.4-49); HEMOGLOBIN 11.3 GM/dL (11.7-16.9); MCH 32.6 pg (25.7-33.7); MCHC 34.4 g/dl (32.0-35.9); MEAN PLT VOLUME 8.9 fl (7.5-11.1); PLATELET COUNT 126 10^3/uL (134-434); RBC 3.47 M/mm3 (4.00-5.60); RDW 15.3 % (11.9-15.9); WHITE BLOOD COUNT 3.8 K/mm3 (4.0-10.0)
[2021-07-16 08:56] LABS: BLOOD UREA NITROGEN 15.6 mg/dL (7-18)
[2021-07-16 08:58] LABS: CALCIUM 8.8 mg/dL (8.5-10.1)
[2021-07-16 08:59] LABS: CREATININE 1.2 mg/dL (0.55-1.3); PHOSPHOROUS 2.5 mg/dL (2.5-4.9)
[2021-07-16 09:01] LABS: BILIRUBIN,TOTAL 1.4 mg/dL (0.2-1)
[2021-07-16 09:04] LABS: TOT PROT 6.9 g/dl (6.4-8.2)
[2021-07-16] MEDS ORDERED: FAMOTIDINE 40 MG/5 ML ORAL SUSPENSION PEG SCH (10:00)
[2021-07-16] MEDS ORDERED: PANTOPRAZOLE SODIUM 40 MG VIAL IVPUSH SCH (10:00)
[2021-07-16] MEDS ORDERED: PANTOPRAZOLE 40 MG TABLET ONE (11:11)
[2021-07-16] MEDS ORDERED: MULTIVITAMINS (DAILY MVI) TABLET (FP) ONE (11:11)
[2021-07-16] MEDS ORDERED: FOLIC ACID 1 MG TABLET (FP) ONE (11:12)
[2021-07-16] MEDS ORDERED: ENOXAPARIN NA (PORCINE) 30 MG/0.3 ML DISP.SYRIN SQ ONE (11:12)
[2021-07-16] MEDS ORDERED: THIAMINE HCL 100 MG TABLET (FP) ONE (11:12)
[2021-07-16] MEDS: FOLIC ACID 1 MG TABLET (FP) PO SCH (11:16)
[2021-07-16] MEDS: SODIUM CHLORIDE 1,000 ML IV SCH ×2 (11:16→23:17)
[2021-07-16] MEDS: ENOXAPARIN NA (PORCINE) 30 MG/0.3 ML DISP.SYRIN SQ SCH (11:17)
[2021-07-16] MEDS: PANTOPRAZOLE 40 MG TABLET PO SCH (11:17)
[2021-07-16] MEDS: MULTIVITAMINS (DAILY MVI) TABLET (FP) PO SCH (11:17)
[2021-07-16] MEDS: THIAMINE HCL 100 MG TABLET (FP) PO SCH (11:17)
[2021-07-16] MEDS: LORazepam 0.5 MG TABLET PO SCH ×2 (18:10→23:16)
[2021-07-17] MEDS: SODIUM CHLORIDE 1,000 ML IV SCH ×2 (04:39→10:13)
[2021-07-17] MEDS: LORazepam 0.5 MG TABLET PO SCH ×2 (06:19→11:51)
[2021-07-17 08:07] LABS: BASO % 0.1 % (0-2.0); EOS % 1.7 % (0-4.5); HEMATOCRIT 34.2 % (35.4-49); HEMOGLOBIN 11.7 GM/dL (11.7-16.9); LYMPH % 37.2 % (8-40); MCH 33.3 pg (25.7-33.7); MCHC 34.1 g/dl (32.0-35.9); MEAN CELL VOLUME 97.5 fl (80-96); MEAN PLT VOLUME 9.3 fl (7.5-11.1); MONO % 8.8 % (3.8-10.2); NEUT % 52.2 % (42.8-82.8); PLATELET COUNT 122 10^3/uL (134-434); RBC 3.51 M/mm3 (4.00-5.60); RDW 15.4 % (11.9-15.9); WHITE BLOOD COUNT 4.3 K/mm3 (4.0-10.0)
[2021-07-17 08:49] LABS: ALBUMIN 3.3 g/dl (3.4-5.0); CALCIUM 8.8 mg/dL (8.5-10.1)
[2021-07-17 08:50] LABS: BLOOD UREA NITROGEN 5.1 mg/dL (7-18); MAGNESIUM 1.8 mg/dL (1.8-2.4)
[2021-07-17 08:52] LABS: CREATININE 0.8 mg/dL (0.55-1.3)
[2021-07-17 08:53] LABS: BILIRUBIN,TOTAL 1.4 mg/dL (0.2-1)
[2021-07-17] MEDS: THIAMINE HCL 100 MG TABLET (FP) PO SCH (10:12)
[2021-07-17] MEDS: ENOXAPARIN NA (PORCINE) 30 MG/0.3 ML DISP.SYRIN SQ SCH (10:12)
[2021-07-17] MEDS: MULTIVITAMINS (DAILY MVI) TABLET (FP) PO SCH (10:12)
[2021-07-17] MEDS: PANTOPRAZOLE 40 MG TABLET PO SCH (10:12)
[2021-07-17] MEDS: FOLIC ACID 1 MG TABLET (FP) PO SCH (10:12)
[2021-07-17] MEDS: AMINO ACIDS/PROTEIN HYDROLYS 30 ML LIQUID.PKT PO SCH (17:27)
[2021-07-18] MEDS ORDERED: LORazepam 0.5 MG TABLET PO ONE (08:00)
[2021-07-18] MEDS: AMINO ACIDS/PROTEIN HYDROLYS 30 ML LIQUID.PKT PO SCH (08:39)
[2021-07-18 09:02] LABS: BASO % 0.2 % (0-2.0); EOS % 1.9 % (0-4.5); HEMATOCRIT 30.8 % (35.4-49); HEMOGLOBIN 10.6 GM/dL (11.7-16.9); LYMPH % 39.4 % (8-40); MCH 33.3 pg (25.7-33.7); MCHC 34.4 g/dl (32.0-35.9); MEAN CELL VOLUME 96.8 fl (80-96); MEAN PLT VOLUME 9.2 fl (7.5-11.1); MONO % 11.8 % (3.8-10.2); NEUT % 46.7 % (42.8-82.8); PLATELET COUNT 126 10^3/uL (134-434); RBC 3.18 M/mm3 (4.00-5.60); RDW 15.4 % (11.9-15.9); WHITE BLOOD COUNT 4.7 K/mm3 (4.0-10.0)
[2021-07-18 09:24] LABS: CALCIUM 8.8 mg/dL (8.5-10.1)
[2021-07-18 09:25] LABS: BLOOD UREA NITROGEN 5.6 mg/dL (7-18); MAGNESIUM 1.6 mg/dL (1.8-2.4)
[2021-07-18 09:28] LABS: CREATININE 0.8 mg/dL (0.55-1.3)
[2021-07-18 09:30] LABS: BILIRUBIN,TOTAL 1.1 mg/dL (0.2-1); TOT PROT 6.8 g/dl (6.4-8.2)
[2021-07-18] MEDS: MULTIVITAMINS (DAILY MVI) TABLET (FP) PO SCH (10:00)
[2021-07-18] MEDS: PANTOPRAZOLE 40 MG TABLET PO SCH (10:00)
[2021-07-18] MEDS: FOLIC ACID 1 MG TABLET (FP) PO SCH (10:00)
[2021-07-18] MEDS: ENOXAPARIN NA (PORCINE) 30 MG/0.3 ML DISP.SYRIN SQ SCH (10:00)
[2021-07-18] MEDS: THIAMINE HCL 100 MG TABLET (FP) PO SCH (10:00)
[2021-07-18] MEDS: SODIUM CHLORIDE 1,000 ML IV SCH (10:58)
[2021-07-18 13:47] VITALS: BMI 16.2
[2021-07-18 14:40] VITALS: BP 125/79; PULSE 79; TEMP 99
== END 2021-07-18 15:42 | disposition other institution (70) | DRG 775 ==
LOC: JER 14:13 → JERBED 21:29 → J7W 07-16 15:38
PROVIDERS: ADMIT Internal Medicine; ATTEND Nurse Practitioner Acute Care
PROC: HZ2ZZZZ Detoxification Services for Substance Abuse Treatment (ICD-10-PCS; principal; 2021-07-15)
DX: F10.239 Alcohol dependence with withdrawal, unspecified (principal); E43 Unspecified severe protein-calorie malnutrition; Z68.1 Body mass index [BMI] 19.9 or less, adult; R64 Cachexia; K86.0 Alcohol-induced chronic pancreatitis; F12.20 Cannabis dependence, uncomplicated; K25.9 Gastric ulcer, unspecified as acute or chronic, without hemorrhage or perforation; I10 Essential (primary) hypertension; E78.5 Hyperlipidemia, unspecified; K70.10 Alcoholic hepatitis without ascites; F32.9 Major depressive disorder, single episode, unspecified; R74.01 Elevation of levels of liver transaminase levels; R62.7 Adult failure to thrive; K76.0 Fatty (change of) liver, not elsewhere classified; R56.9 Unspecified convulsions; F17.200 Nicotine dependence, unspecified, uncomplicated
CPT/HCPCS: 36415; 74177-TC; 76705-TC; 80048; 80053; 81003; 82248; 83690; 83735; 84100; 85025; 85027; 85610; 85730; 86705; 87086; 87340; 87522; 93005; 93010; 97116-GP; 97161-GP; 99285-25; C9803; Q0162; Q9967; U0003; U0005

== ENCOUNTER 2021-07-18 16:19 | Inpatient (IN) | payer OTHER ==
[2021-07-18] MEDS ORDERED: MAGNESIUM HYDROX 2400MG/30ML ORAL SUSPENSION 30 ML CUP PO PRN (18:04)
[2021-07-18] MEDS ORDERED: LOPERAMIDE HCL 2 MG CAPSULE PO PRN (18:04)
[2021-07-18] MEDS ORDERED: MAGNESIUM CITRATE 300 ML BOTTLE PO PRN (18:04)
[2021-07-18] MEDS ORDERED: P-EPHED 60MG/TRIPROLIDI 2.5MG TABLET PO PRN (18:04)
[2021-07-18] MEDS ORDERED: ACETAMINOPHEN 325 MG TABLET (FP) PO PRN (18:04)
[2021-07-18] MEDS ORDERED: guaiFENesin 200 MG/10 ML 10 ML UNIT-DOSE CUPS PO PRN (18:04)
[2021-07-18] MEDS ORDERED: MAG HYDROX/AL HYDROX/SIMETH 30 ML UNIT-DOSE CUP PO PRN (18:04)
[2021-07-18] MEDS ORDERED: IBUPROFEN 400 MG TABLET (FP) PO PRN (18:04)
[2021-07-18 19:17] VITALS: BMI 16.9
[2021-07-18] MEDS: PRENATAL VITAMINS W/ FOLIC ACID TABLET (FP) PO SCH (20:33)
[2021-07-18] MEDS ORDERED: TUBERCULIN PPD 5 TU/0.1ML VIAL ID ONE (20:36)
[2021-07-18] MEDS: THIAMINE HCL 100 MG TABLET (FP) PO SCH (21:37)
[2021-07-18] MEDS: MELATONIN 5 MG TABLETS PO SCH (21:37)
[2021-07-18] MEDS: PANTOPRAZOLE 40 MG TABLET PO SCH (21:38)
[2021-07-19] MEDS: PRENATAL VITAMINS W/ FOLIC ACID TABLET (FP) PO SCH (09:27)
[2021-07-19] MEDS: PANTOPRAZOLE 40 MG TABLET PO SCH ×2 (09:27→21:04)
[2021-07-19] MEDS: THIAMINE HCL 100 MG TABLET (FP) PO SCH (21:04)
[2021-07-19] MEDS: MELATONIN 5 MG TABLETS PO SCH (21:04)
[2021-07-19] MEDS: traZODone HCL 50 MG TABLET (FP) PO SCH (21:04)
[2021-07-20] MEDS: PRENATAL VITAMINS W/ FOLIC ACID TABLET (FP) PO SCH (10:04)
[2021-07-20] MEDS: PANTOPRAZOLE 40 MG TABLET PO SCH ×2 (10:04→21:05)
[2021-07-20] MEDS ORDERED: MODERNA COVID-19 VACC,MRNA/PF 50 MCG/0.25 ML EACH IM ONE (11:00)
[2021-07-20] MEDS: MELATONIN 5 MG TABLETS PO SCH (21:05)
[2021-07-20] MEDS: THIAMINE HCL 100 MG TABLET (FP) PO SCH (21:05)
[2021-07-20] MEDS: traZODone HCL 50 MG TABLET (FP) PO SCH (21:05)
[2021-07-21] MEDS: PRENATAL VITAMINS W/ FOLIC ACID TABLET (FP) PO SCH (09:33)
[2021-07-21] MEDS: PANTOPRAZOLE 40 MG TABLET PO SCH ×2 (09:33→21:00)
[2021-07-21] MEDS: traZODone HCL 50 MG TABLET (FP) PO SCH (21:00)
[2021-07-21] MEDS: THIAMINE HCL 100 MG TABLET (FP) PO SCH (21:01)
[2021-07-21] MEDS: MELATONIN 5 MG TABLETS PO SCH (21:01)
[2021-07-22] MEDS: PANTOPRAZOLE 40 MG TABLET PO SCH ×2 (10:10→21:27)
[2021-07-22] MEDS: PRENATAL VITAMINS W/ FOLIC ACID TABLET (FP) PO SCH (10:10)
[2021-07-22] MEDS: THIAMINE HCL 100 MG TABLET (FP) PO SCH (21:27)
[2021-07-22] MEDS: traZODone HCL 50 MG TABLET (FP) PO SCH (21:27)
[2021-07-22] MEDS: MELATONIN 5 MG TABLETS PO SCH (21:27)
[2021-07-23] MEDS: PANTOPRAZOLE 40 MG TABLET PO SCH ×2 (09:31→21:21)
[2021-07-23] MEDS: PRENATAL VITAMINS W/ FOLIC ACID TABLET (FP) PO SCH (09:31)
[2021-07-23] MEDS: THIAMINE HCL 100 MG TABLET (FP) PO SCH (21:21)
[2021-07-23] MEDS: traZODone HCL 50 MG TABLET (FP) PO SCH (21:21)
[2021-07-23] MEDS: MELATONIN 5 MG TABLETS PO SCH (21:21)
[2021-07-24] MEDS: PRENATAL VITAMINS W/ FOLIC ACID TABLET (FP) PO SCH (09:59)
[2021-07-24] MEDS: PANTOPRAZOLE 40 MG TABLET PO SCH ×2 (09:59→21:00)
[2021-07-24] MEDS: THIAMINE HCL 100 MG TABLET (FP) PO SCH (21:00)
[2021-07-24] MEDS: MELATONIN 5 MG TABLETS PO SCH (21:00)
[2021-07-24] MEDS: traZODone HCL 50 MG TABLET (FP) PO SCH (21:00)
[2021-07-25] MEDS: PANTOPRAZOLE 40 MG TABLET PO SCH ×2 (10:26→21:11)
[2021-07-25] MEDS: PRENATAL VITAMINS W/ FOLIC ACID TABLET (FP) PO SCH (10:26)
[2021-07-25] MEDS: THIAMINE HCL 100 MG TABLET (FP) PO SCH (21:11)
[2021-07-25] MEDS: MELATONIN 5 MG TABLETS PO SCH (21:11)
[2021-07-25] MEDS: traZODone HCL 50 MG TABLET (FP) PO SCH (21:11)
[2021-07-26] MEDS: PRENATAL VITAMINS W/ FOLIC ACID TABLET (FP) PO SCH (10:40)
[2021-07-26] MEDS: PANTOPRAZOLE 40 MG TABLET PO SCH ×2 (10:40→21:17)
[2021-07-26] MEDS: THIAMINE HCL 100 MG TABLET (FP) PO SCH (21:17)
[2021-07-26] MEDS: MELATONIN 5 MG TABLETS PO SCH (21:17)
[2021-07-26] MEDS: traZODone HCL 50 MG TABLET (FP) PO SCH (21:17)
[2021-07-27] MEDS: PRENATAL VITAMINS W/ FOLIC ACID TABLET (FP) PO SCH (10:17)
[2021-07-27] MEDS: PANTOPRAZOLE 40 MG TABLET PO SCH ×2 (10:17→21:00)
[2021-07-27] MEDS: THIAMINE HCL 100 MG TABLET (FP) PO SCH (21:00)
[2021-07-27] MEDS: MELATONIN 5 MG TABLETS PO SCH (21:00)
[2021-07-27] MEDS: traZODone HCL 50 MG TABLET (FP) PO SCH (21:00)
[2021-07-28] MEDS: PRENATAL VITAMINS W/ FOLIC ACID TABLET (FP) PO SCH (09:42)
[2021-07-28] MEDS: PANTOPRAZOLE 40 MG TABLET PO SCH ×2 (09:42→21:19)
[2021-07-28] MEDS: THIAMINE HCL 100 MG TABLET (FP) PO SCH (21:18)
[2021-07-28] MEDS: MELATONIN 5 MG TABLETS PO SCH (21:18)
[2021-07-28] MEDS: traZODone HCL 50 MG TABLET (FP) PO SCH (21:19)
[2021-07-29] MEDS: PRENATAL VITAMINS W/ FOLIC ACID TABLET (FP) PO SCH (10:12)
[2021-07-29] MEDS: PANTOPRAZOLE 40 MG TABLET PO SCH ×2 (10:13→21:15)
[2021-07-29] MEDS: THIAMINE HCL 100 MG TABLET (FP) PO SCH (21:15)
[2021-07-29] MEDS: MELATONIN 5 MG TABLETS PO SCH (21:15)
[2021-07-29] MEDS: traZODone HCL 50 MG TABLET (FP) PO SCH (21:16)
[2021-07-30] MEDS: PANTOPRAZOLE 40 MG TABLET PO SCH ×2 (09:44→21:47)
[2021-07-30] MEDS: PRENATAL VITAMINS W/ FOLIC ACID TABLET (FP) PO SCH (09:44)
[2021-07-30] MEDS: THIAMINE HCL 100 MG TABLET (FP) PO SCH (21:47)
[2021-07-30] MEDS: MELATONIN 5 MG TABLETS PO SCH (21:47)
[2021-07-30] MEDS: traZODone HCL 50 MG TABLET (FP) PO SCH (21:47)
[2021-07-31] MEDS: PANTOPRAZOLE 40 MG TABLET PO SCH ×2 (09:45→21:02)
[2021-07-31] MEDS: PRENATAL VITAMINS W/ FOLIC ACID TABLET (FP) PO SCH (09:45)
[2021-07-31] MEDS: THIAMINE HCL 100 MG TABLET (FP) PO SCH (21:02)
[2021-07-31] MEDS: traZODone HCL 50 MG TABLET (FP) PO SCH (21:02)
[2021-07-31] MEDS: MELATONIN 5 MG TABLETS PO SCH (21:02)
[2021-08-01 07:45] VITALS: PULSE 100
[2021-08-01] MEDS: PRENATAL VITAMINS W/ FOLIC ACID TABLET (FP) PO SCH (10:11)
[2021-08-01] MEDS: PANTOPRAZOLE 40 MG TABLET PO SCH ×2 (10:12→21:16)
[2021-08-01] MEDS: NALTREXONE HCL 50 MG TABLET PO SCH (12:43)
[2021-08-01] MEDS: MELATONIN 5 MG TABLETS PO SCH (21:16)
[2021-08-01] MEDS: traZODone HCL 50 MG TABLET (FP) PO SCH (21:16)
[2021-08-01] MEDS: THIAMINE HCL 100 MG TABLET (FP) PO SCH (21:16)
[2021-08-02 07:19] VITALS: BP 147/90; TEMP 98.1
[2021-08-02] MEDS: NALTREXONE HCL 50 MG TABLET PO SCH (09:42)
[2021-08-02] MEDS: PANTOPRAZOLE 40 MG TABLET PO SCH (09:42)
[2021-08-02] MEDS: PRENATAL VITAMINS W/ FOLIC ACID TABLET (FP) PO SCH (09:42)
== END 2021-08-02 10:07 | disposition home or self-care (01) | DRG 772 ==
LOC: YASAS 16:19 → Y3W 18:12
PROVIDERS: ADMIT Allergy & Immunology; ATTEND Allergy & Immunology
PROC: HZ42ZZZ Group Counseling for Substance Abuse Treatment, Cognitive-Behavioral (ICD-10-PCS; principal; 2021-07-18)
DX: F10.20 Alcohol dependence, uncomplicated (principal); F12.20 Cannabis dependence, uncomplicated; F19.282 Other psychoactive substance dependence with psychoactive substance-induced sleep disorder; I10 Essential (primary) hypertension; E78.5 Hyperlipidemia, unspecified; G47.00 Insomnia, unspecified; Z87.891 Personal history of nicotine dependence; Z86.69 Personal history of other diseases of the nervous system and sense organs; Z91.038 Other insect allergy status; Z91.048 Other nonmedicinal substance allergy status; Z87.19 Personal history of other diseases of the digestive system
CPT/HCPCS: 87811; C9803; U0003; U0005